=== PATIENT | male | born 1955 | race Caucasian/White ===

== ENCOUNTER → 2018-02-09 09:25 | Outpatient (CLI) | payer OTHER, MEDICAID, SELFPAY | PROVIDERS: Family Provider Family Medicine; PCP Family Medicine; Visit Provider Internal Medicine | DX: B35.1 Tinea unguium (principal) | CPT/HCPCS: 87102 ==

== ENCOUNTER → 2018-04-20 15:07 | Outpatient (CLI) | payer OTHER, MEDICAID, SELFPAY ==
[2018-04-20 16:41] LABS: Prostate Specific Antigen Scrn 0.415 ng/mL (0.1-4.0)
== END ==
PROVIDERS: Family Provider Family Medicine; PCP Family Medicine; Visit Provider Nurse Practitioner Family
DX: R35.0 Frequency of micturition (principal)
CPT/HCPCS: 36415; G0103

== ENCOUNTER → 2018-05-18 07:03 | Outpatient (CLI) | payer OTHER, MEDICAID, SELFPAY ==
[2018-05-18 07:09] LABS: WBC Urine None Seen (0-5/HPF)
[2018-05-18 08:52] LABS: Add Manual Diff / Slide Review NO; Eosinophils Percent Auto 6.6 % (2-4); Hematocrit 44.4 % (41-53); Hemoglobin 14.6 g/dL (13.5-17.5); Lymphocytes Percent Auto 23.7 % (25-40); Mean Corpuscular HGB Conc 32.9 % (30-36); Mean Corpuscular Hemoglobin 29.8 PG (26-34); Mean Corpuscular Volume 90.6 fL (80-100); Monocytes Percent Auto 8.2 % (3-14); Neutrophils Absolute Auto 3700 /uL (3000-5900); Neutrophils Percent Auto 60.5 % (50-75); Platelet Count 246 X10^3/uL (150-400); Red Cell Distribution Width 13.5 % (11.6-14.8)
[2018-05-18 09:10] LABS: Alanine Aminotransferase 22 IU/L (21-72); Albumin 4.2 g/dL (3.5-5.0); Albumin Globulin Ratio 1.6 (1.0-2.8); Alkaline Phosphatase 55 U/L (38-126); Aspartate Aminotransferase 19 IU/L (17-59); BUN Creatinine Ratio 8.3 (6-22); Bilirubin Total 0.4 mg/dL (0.2-1.3); Blood Urea Nitrogen 10 mg/dL (9-20); Calcium 9.2 mg/dL (8.4-10.2); Carbon Dioxide 28 mmol/L (22-32); Chloride 105 mmol/L (98-107); Cholesterol 170 mg/dL (140-199); Estimated Glomerular Filt Rate > 60.0 mL/min (>60); Globulin 2.6 g/dL (1.7-4.1); Glucose 102 mg/dL (80-110); HDL Cholesterol 35 mg/dL (40-60); LDL Cholesterol Calculated 95 mg/dL (<100); Potassium 3.7 mmol/L (3.4-5.1); Sodium 146 mmol/L (137-145); Total Protein 6.8 g/dL (6.3-8.2); Triglycerides 202 mg/dL (35-150)
[2018-05-18 09:48] LABS: Appearance Urine UA CLEAR; Bilirubin Urine UA NEGATIVE (NEGATIVE); Color Urine UA YELLOW; Glucose Urine UA NEGATIVE (Normal); Ketones Urine UA NEGATIVE (NEGATIVE); Leukocyte Esterase Urine UA NEGATIVE (NEGATIVE); Nitrite Urine UA Negative (Negative); Occult Blood Urine UA NEGATIVE (Negative); Protein Urine UA NEGATIVE (Negative); Urobilinogen Urine UA 0.2 E.U./dL (0.2)
[2018-05-18 10:10] LABS: RBC Urine 0-1/HPF (0-5/HPF)
[2018-05-18 10:11] LABS: Bacteria Urine Occasional (0-1); Culture Indicated Urine Cult Not Indicated
[2018-05-18 20:15] LABS: HEMOLYSIS < 15 (0-50); Prostate Specific Antigen 0.367 ng/mL (0.10-4.00)
== END ==
PROVIDERS: Family Provider Family Medicine; PCP Family Medicine; Visit Provider Family Medicine
DX: N40.1 Benign prostatic hyperplasia with lower urinary tract symptoms (principal); Z13.220 Encounter for screening for lipoid disorders; R35.0 Frequency of micturition
CPT/HCPCS: 36415; 80053; 80061; 81001; 84153; 85025

== ENCOUNTER → 2018-12-29 10:34 | Outpatient (CLI) | payer OTHER, MEDICAID, SELFPAY ==
[2018-12-29 17:05] LABS: Erythrocyte Sedimentation Rate 4 MM/HR (0-15)
[2018-12-31 18:28] LABS: ANA Screen, IFA Negative (Negative)
== END ==
PROVIDERS: PCP Family Medicine; Visit Provider Hospitalist
DX: M25.512 Pain in left shoulder (principal); M25.50 Pain in unspecified joint
CPT/HCPCS: 36415; 85651; 86038

== ENCOUNTER → 2019-02-28 15:15 | Outpatient (CLI) | payer OTHER, MEDICAID, SELFPAY ==
[2019-02-28 16:23] LABS: Alanine Aminotransferase 18 IU/L (21-72); Albumin 4.1 g/dL (3.5-5.0); Albumin Globulin Ratio 1.7 (1.0-2.8); Alkaline Phosphatase 62 U/L (38-126); Aspartate Aminotransferase 18 IU/L (17-59); BUN Creatinine Ratio 11.8 (6-22); Bilirubin Total 0.3 mg/dL (0.2-1.3); Blood Urea Nitrogen 13 mg/dL (9-20); Calcium 9.4 mg/dL (8.4-10.2); Carbon Dioxide 25 mmol/L (22-32); Chloride 104 mmol/L (98-107); Estimated Glomerular Filt Rate > 60.0 mL/min (>60); Globulin 2.4 g/dL (1.7-4.1); Glucose 74 mg/dL (80-110); HEMOLYSIS < 15 (0-50); Potassium 4.1 mmol/L (3.4-5.1); Sodium 138 mmol/L (137-145); Total Protein 6.5 g/dL (6.3-8.2)
== END ==
PROVIDERS: PCP Family Medicine; Visit Provider Family Medicine
DX: Z79.1 Long term (current) use of non-steroidal anti-inflammatories (NSAID) (principal)
CPT/HCPCS: 36415; 80053

== ENCOUNTER → 2019-05-09 14:10 | Outpatient (CLI) | payer OTHER, MEDICAID, SELFPAY ==
--- NOTE | 2019-05-09 14:12 | DI.MRI.S_ITS ---
PROCEDURE: MR SHOULDER RT WO CON INDICATIONS: Right Shoulder Pain TECHNIQUE: Noncontrast oblique coronal T2 fast spin echo with fat saturation, oblique sagittal T1 spin echo and T2 fast spin echo with fat saturation, axial T1 spin echo and T2 fast spin echo with fat saturation through the shoulder. COMPARISON: [facility], , CHEST 2 VIEW, 09/25/2017, 14:42. FINDINGS: Image quality: Excellent. Rotator cuff: Low signal focus measuring 7 mm seen in the region of the supraspinatus tendon suggestive of calcific tendinitis although this could be confirmed with radiographic evaluation. Supraspinatus tendinopathy with partial thickness articular and bursal sided tear. No full thickness defect identified. There is also infraspinatus tendinopathy with articular surface fraying. Teres minor tendinopathy noted. There is also subscapularis thickening and intrasubstance signal change in keeping with tendinopathy. No atrophy of the rotator cuff musculature although mild diffuse fatty infiltration is seen. Bones and bursae: No bone marrow contusions or fractures. Severe acromioclavicular joint degeneration. The acromion demonstrates conventional anatomy, without an os acromiale. Moderate subacromial-subdeltoid bursitis. Capsule and soft tissues: Irregularity of the anteroinferior labrum with intrasubstance signal change and hypertrophy in keeping with chronic labral tear. There is adjacent glenoid osseous degeneration and cystic change. There is also fraying and ill-defined degeneration of the superior labrum The long head of the biceps tendon demonstrates normal location and morphology. The rotator interval appears normal, without fibrosis. The coracohumeral ligament is thickened. IMPRESSION: Supraspinatus tendinopathy with partial-thickness articular and bursal sided tear. No definite full-thickness defect seen. Infraspinatus tendinopathy with articular surface fraying. Subscapularis and teres minor tendinopathy. Moderate subacromial-subdeltoid bursitis. Chronic appearing anteroinferior labral tear with subsequent hypertrophic scarring/fibrosis. Adjacent segmental glenohumeral joint degeneration. Suspect supraspinatus calcific tendinitis, which could be confirmed with dedicated shoulder radiographs. Dictated by: Bubba Tate M.D. on 05/09/2019 at 15:43 Approved by: Bubba Tate M.D. on 05/09/2019 at 15:51
== END ==
PROVIDERS: PCP Family Medicine; Visit Provider Family Medicine
DX: M25.511 Pain in right shoulder (principal); M75.51 Bursitis of right shoulder; M19.011 Primary osteoarthritis, right shoulder; S43.491A Other sprain of right shoulder joint, initial encounter
CPT/HCPCS: 73221

== ENCOUNTER → 2020-02-20 07:44 | Outpatient (CLI) | payer OTHER, MEDICAID, SELFPAY ==
[2020-02-20 08:11] LABS: Add Manual Diff / Slide Review NO; Basophils Absolute Auto 100 /uL (0-100); Basophils Percent Auto 1.2 % (0-2); Eosinophils Absolute Auto 300 /uL (0-450); Eosinophils Percent Auto 4.5 % (2-4); Hematocrit 43.7 % (41-53); Lymphocytes Absolute Auto 1500 /uL (1100-4500); Mean Corpuscular HGB Conc 34.2 % (30-36); Mean Corpuscular Hemoglobin 30.4 PG (26-34); Mean Corpuscular Volume 88.9 fL (80-100); Monocytes Absolute Auto 500 /uL (0-900); Monocytes Percent Auto 6.7 % (3-14); Neutrophils Absolute Auto 4900 /uL (1500-7000); Neutrophils Percent Auto 66.6 % (50-75); Platelet Count 233 X10^3/uL (150-400); Red Blood Cell Count 4.92 X10^6/uL (4.5-5.9); Red Cell Distribution Width 13.2 % (11.6-14.8); White Blood Cell Count 7.3 X10^3/uL (4.5-11.0)
[2020-02-20 08:22] LABS: Prothrombin Time 11.1 SECONDS (10.1-12.7)
[2020-02-20 08:47] LABS: Alanine Aminotransferase 18 IU/L (<50); Albumin 3.8 g/dL (3.5-5.0); Albumin Globulin Ratio 1.7 (1.0-2.8); Alkaline Phosphatase 66 U/L (38-126); Aspartate Aminotransferase 21 IU/L (17-59); BUN Creatinine Ratio 9.3 (6-22); Bilirubin Total 0.3 mg/dL (0.2-1.3); Blood Urea Nitrogen 10 mg/dL (9-20); Calcium 9.3 mg/dL (8.4-10.2); Carbon Dioxide 25 mmol/L (22-32); Chloride 109 mmol/L (98-107); Cholesterol 163 mg/dL (140-199); Estimated Glomerular Filt Rate > 60.0 mL/min (>60); Globulin 2.2 g/dL (1.7-4.1); Glucose 103 mg/dL (80-110); HDL Cholesterol 35 mg/dL (40-60); HEMOLYSIS < 15 (0-50); LDL Cholesterol Calculated 87 mg/dL (<100); Potassium 4.1 mmol/L (3.4-5.1); Sodium 139 mmol/L (137-145); Triglycerides 203 mg/dL (35-150)
[2020-02-20 09:03] LABS: Free T4, Direct Thyroxine 0.79 ng/dL (0.78-2.19)
[2020-02-20 09:58] LABS: Lithium 0.5 mmol/L (0.6-1.2)
[2020-02-20 10:30] LABS: Thyroid Stimulating Hormone 3.17 uIU/mL (0.47-4.68)
== END ==
PROVIDERS: Nurse Practitioner Psychiatric/Mental Health; PCP Family Medicine; Referring Provider Family Medicine; Visit Provider Family Medicine
DX: Z51.81 Encounter for therapeutic drug level monitoring (principal); R23.8 Other skin changes; F31.11 Bipolar disorder, current episode manic without psychotic features, mild; Z79.899 Other long term (current) drug therapy; E66.9 Obesity, unspecified; G40.909 Epilepsy, unspecified, not intractable, without status epilepticus; F33.9 Major depressive disorder, recurrent, unspecified
CPT/HCPCS: 36415; 80053; 80061; 80178; 84439; 84443; 84481; 85025; 85610

== ENCOUNTER → 2020-04-19 15:38 | Outpatient (CLI) | payer OTHER, MEDICAID, SELFPAY | PROVIDERS: PCP Family Medicine; Referring Provider Registered Nurse Diabetes Educator; Visit Provider Registered Nurse Diabetes Educator | DX: M79.89 Other specified soft tissue disorders (principal); Z53.8 Procedure and treatment not carried out for other reasons ==

== ENCOUNTER → 2020-04-20 12:13 | Outpatient (CLI) | payer OTHER, MEDICAID, SELFPAY ==
--- NOTE | 2020-04-20 12:14 | DI.US.S_ITS ---
PROCEDURE: US PERIPH VENOUS LOW EXTREM LT INDICATIONS: LEFT LEG SWELLING TECHNIQUE: Real-time imaging, as well as color and pulse Doppler interrogation, were performed of the lower extremity deep veins from the inguinal ligament to the popliteal fossa. COMPARISON: None. FINDINGS: The common femoral, femoral and popliteal veins are normally compressible, and free of intraluminal thrombus. Color and pulse Doppler demonstrate normal phasic intraluminal flow. There is normal augmentation response to distal compression maneuver. IMPRESSION: Negative for deep venous thrombosis. Dictated by: Mando English M.D. on 04/20/2020 at 12:15 Approved by: Mando English M.D. on 04/20/2020 at 12:15
== END ==
PROVIDERS: PCP Family Medicine; Referring Provider Family Medicine; Visit Provider Registered Nurse Diabetes Educator
DX: M79.89 Other specified soft tissue disorders (principal)
CPT/HCPCS: 93971

== ENCOUNTER → 2020-04-26 11:43 | Outpatient (CLI) | payer OTHER, MEDICAID, SELFPAY ==
--- NOTE | 2020-04-26 11:46 | DI.RAD.S_ITS ---
PROCEDURE: XR TIBIA FIBULA RT 2V INDICATIONS: LLE swelling TECHNIQUE: 2 views of the tibia and fibula were acquired. COMPARISON: [facility], CR, XR KNEE LT 3V, 04/26/2020, 11:41. FINDINGS: Bones: No fracture. Small loose bodies and chondrocalcinosis projecting in the left knee Soft tissues: No suspicious soft tissue calcifications or masses. IMPRESSION: No fracture. Left knee joint degeneration and chondrocalcinosis Dictated by: Bubba Tate M.D. on 04/26/2020 at 15:08 Approved by: Bubba Tate M.D. on 04/26/2020 at 15:09
--- NOTE | 2020-04-26 11:46 | DI.RAD.S_ITS ---
PROCEDURE: XR KNEE LT 3V INDICATIONS: LLE swelling TECHNIQUE: 3 views of the knee were acquired. COMPARISON: [facility], , KNEE 3V RIGHT, 08/05/2013, 14:28. FINDINGS: Bones: No fracture. Chondrocalcinosis seen in the medial and lateral compartments. Mild narrowing of the medial joint space. Soft tissues: Possible small joint effusion. No suspicious soft tissue calcifications. IMPRESSION: Mild knee joint degeneration Chondrocalcinosis If the patient's pain or other symptoms persist, consider further evaluation with MRI Dictated by: Bubba Tate M.D. on 04/26/2020 at 15:05 Approved by: Bubba Tate M.D. on 04/26/2020 at 15:08
[2020-04-26 12:08] LABS: D Dimer < 200 ng/mL (<230)
== END ==
PROVIDERS: PCP Family Medicine; Referring Provider Registered Nurse Diabetes Educator; Visit Provider Registered Nurse Diabetes Educator
DX: M79.89 Other specified soft tissue disorders (principal); M17.0 Bilateral primary osteoarthritis of knee; M11.262 Other chondrocalcinosis, left knee; M11.261 Other chondrocalcinosis, right knee
CPT/HCPCS: 36415; 73562; 73590; 85379

== ENCOUNTER → 2020-11-29 08:22 | Outpatient (CLI) | payer OTHER, MEDICAID, SELFPAY ==
[2020-11-29] MEDS: COVID-19 VACC #1, MRNA(MOD) 100 MCG/0.5 ML VIAL IM (08:31)
== END ==
PROVIDERS: PCP Family Medicine; Visit Provider Internal Medicine
DX: Z23 Encounter for immunization (principal)
CPT/HCPCS: 0011A; 91301

== ENCOUNTER → 2020-12-27 08:23 | Outpatient (CLI) | payer OTHER, MEDICAID, SELFPAY ==
[2020-12-27] MEDS: COVID-19 VACC #2, MRNA(MOD) 100 MCG/0.5 ML VIAL IM (08:37)
== END ==
PROVIDERS: PCP Family Medicine; Visit Provider Internal Medicine
DX: Z23 Encounter for immunization (principal)
CPT/HCPCS: 0012A; 91301

== ENCOUNTER 2021-01-29 11:46 | Emergency (ER) | payer OTHER, SELFPAY ==
[2021-01-29 11:51] VITALS: BP 120/86; PULSE 89; RESP 16; TEMP 36.4; O2SAT 95; BMI 31.8
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
--- NOTE | 2021-01-29 12:07 | DI.CT.S_ITS ---
PROCEDURE: CT CERVICAL SPINE WO CON INDICATIONS: Pain/injury TECHNIQUE: Noncontrast 3 mm thick sections acquired from the skull base to the T4 level. Sagittal and coronal reformats were then constructed. For radiation dose reduction, the following was used: automated exposure control, adjustment of mA and/or kV according to patient size. COMPARISON: [facility], CR, CERVICAL SPINE 2 OR 3 VIEWS, 01/23/2017, 13:16. MR, C-SPINE WITHOUT CONTRAST, 01/25/2010, 12:45. [facility], CT, C-SPINE WITHOUT CONTRAST, 01/28/2016, 9:12. FINDINGS: Image quality: Excellent. Bones: Old C2 fracture involving the body of the odontoid process with stable alignment. No acute fractures or dislocations. Grade 1 anterolisthesis of C4 on C5. Mild degenerative disc disease at C3-C4 and C4-C5. Bilateral facet arthropathy, most pronounced at C3-C4 and C4-C5 on the left. There are postsurgical changes with anterior fusion at C5-C7. Visualized superior ribs are intact. Soft tissues: Prevertebral soft tissues are normal in thickness. No paravertebral hematomas. No apical pneumothoraces. Severe emphysema. IMPRESSION: 1. Old odontoid fracture with stable alignment. No acute fracture or dislocation. 2. Degenerative and postsurgical changes in cervical spine as described. Dictated by: Godfrey Sears M.D. on 01/29/2021 at 12:09 Approved by: Godfrey Sears M.D. on 01/29/2021 at 12:17
--- NOTE | 2021-01-29 12:37 | PC.NURSE ---
c spine cleared by Dr William
[2021-01-29] MEDS: OXYCODONE/ACETAMINOPHEN 5/325 TABLET 1 TAB PO (13:12)
[2021-01-29] MEDS: BACITRACIN OINT 0.9 GM PCKT 1 APPLIC TOP (13:12)
[2021-01-29 13:53] VITALS: BP 151/88; PULSE 82; RESP 16; O2SAT 99
--- NOTE | 2021-01-29 13:54 | PC.NURSE ---
right knee abrasion, bleeding controlled prior to arrival. cleaned with sterile water, bacitracin applied, covered with telfa and gauze roll.
== END 2021-01-29 13:56 | disposition home or self-care (01) ==
PROVIDERS: Emergency Provider Emergency Medicine; PCP Family Medicine
DX: S16.1XXA Strain of muscle, fascia and tendon at neck level, initial encounter (principal); S80.211A Abrasion, right knee, initial encounter; S80.01XA Contusion of right knee, initial encounter; R07.9 Chest pain, unspecified; V89.2XXA Person injured in unspecified motor-vehicle accident, traffic, initial encounter
CPT/HCPCS: 72125; 73562; 93005; 93010; 99284

== ENCOUNTER → 2021-03-18 08:21 | Outpatient (CLI) | payer OTHER, MEDICAID, SELFPAY ==
[2021-03-18 08:48] LABS: Add Manual Diff / Slide Review NO; Basophils Absolute Auto 100 /uL (0-100); Basophils Percent Auto 1.4 % (0-2); Eosinophils Absolute Auto 300 /uL (0-450); Hematocrit 45.5 % (41-53); Hemoglobin 15.4 g/dL (13.5-17.5); Lymphocytes Absolute Auto 1700 /uL (1100-4500); Lymphocytes Percent Auto 20.1 % (25-40); Mean Corpuscular HGB Conc 33.9 % (30-36); Mean Corpuscular Hemoglobin 30.2 PG (26-34); Mean Corpuscular Volume 89.1 fL (80-100); Monocytes Absolute Auto 600 /uL (0-900); Monocytes Percent Auto 6.7 % (3-14); Neutrophils Absolute Auto 5700 /uL (1500-7000); Neutrophils Percent Auto 67.8 % (50-75); Platelet Count 271 X10^3/uL (150-400); Red Cell Distribution Width 12.9 % (11.6-14.8); White Blood Cell Count 8.4 X10^3/uL (4.5-11.0)
[2021-03-18 09:02] LABS: Lithium 0.6 mmol/L (0.6-1.2)
[2021-03-18 09:10] LABS: Alanine Aminotransferase 16 IU/L (<50); Albumin 3.9 g/dL (3.5-5.0); Albumin Globulin Ratio 1.6 (1.0-2.8); Alkaline Phosphatase 64 U/L (38-126); Aspartate Aminotransferase 20 IU/L (17-59); Bilirubin Total 0.4 mg/dL (0.2-1.3); Blood Urea Nitrogen 11 mg/dL (9-20); Calcium 9.9 mg/dL (8.4-10.2); Carbon Dioxide 26 mmol/L (22-32); Chloride 108 mmol/L (98-107); Cholesterol 174 mg/dL (140-199); Estimated Glomerular Filt Rate 59.8 mL/min (>60); Globulin 2.5 g/dL (1.7-4.1); Glucose 110 mg/dL (80-110); HDL Cholesterol 39 mg/dL (40-60); HEMOLYSIS < 15 (0-50); LDL Cholesterol Calculated 92 mg/dL (<100); Potassium 4.5 mmol/L (3.4-5.1); Sodium 139 mmol/L (137-145); Total Protein 6.4 g/dL (6.3-8.2); Triglycerides 217 mg/dL (35-150)
[2021-03-18 09:36] LABS: TSH w/ Reflex to FT4 3.07 uIU/mL (0.47-4.68)
== END ==
PROVIDERS: PCP Family Medicine; Referring Provider Family Medicine; Visit Provider Family Medicine
DX: E66.9 Obesity, unspecified (principal); Z79.899 Other long term (current) drug therapy
CPT/HCPCS: 36415; 80053; 80061; 80178; 84443; 85025

== ENCOUNTER 2021-04-29 14:30 | Outpatient (RCR) | payer OTHER, MEDICAID, SELFPAY ==
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
--- NOTE | 2021-05-07 14:24 | PT.OPDS ---
Current Diagnoses Other chronic pain (04/29/21) Pain in unspecified shoulder (04/29/21) Cervicalgia (04/29/21) Dorsalgia, unspecified (04/29/21) Visit Care Team Role Provider Type Bobbi Wyatt DO Attending Provider Physician Primary Care Provider Referring Provider Specialty: Family Practice Address: [address] [place] [address], [address], [facility] Email: [email or web address] Visit Number Visit Number 10/19 Discharge Summary PT-OP-T Assessment and Plan Start: 04/23/21 16:16 Freq: Status: Active Protocol: Document 05/07/21 14:23 HH (Rec: 05/07/21 14:24 [email or web address]) Physical Therapy Plan Discharge Physical Therapy Discharge Comments Pt called and cnxd his remaining appts. dr wyatt said to stop PT, pt getting cluster headaches. DC from PT today
== END 2021-05-07 14:26 | disposition home or self-care (01) ==
LOC: PHYS 14:30
PROVIDERS: PCP Family Medicine; Referring Provider Family Medicine; Visit Provider Family Medicine
DX: M25.519 Pain in unspecified shoulder (principal); M54.9 Dorsalgia, unspecified; G89.29 Other chronic pain; M54.2 Cervicalgia
CPT/HCPCS: 97110; 97140; 97162

== ENCOUNTER 2022-06-27 11:42 | Emergency (ER) | payer OTHER, MEDICAID, SELFPAY ==
--- NOTE | 2022-06-27 12:58 | DI.RAD.S_ITS ---
PROCEDURE: XR FOOT RT MIN 3V INDICATIONS: pain / swelling- in WR TECHNIQUE: 3 views of the foot were acquired. COMPARISON: None. FINDINGS: Bones: No fractures or dislocations. No suspicious bony lesions. Moderate 1st MTP joint degenerative changes and periarticular lucencies. Soft tissues: No tibiotalar joint effusion. Achilles tendon appears normal. IMPRESSION: 1. No acute fracture visualized. 2. Moderate 1st MTP joint degenerative changes present. Periarticular lucencies also demonstrated, indeterminate for subchondral cystic change or erosions. 3. If symptoms persist, follow-up radiographs and/or CT may be helpful for further evaluation. Dictated by: Julio C Bagley M.D. on 06/27/2022 at 13:33 Approved by: Julio C Bagley M.D. on 06/27/2022 at 13:38
[2022-06-27 13:06] VITALS: BP 126/78; PULSE 77; RESP 18; TEMP 36.7; O2SAT 98
[2022-06-27 17:19] VITALS: BP 159/85; PULSE 80; RESP 16; O2SAT 99
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
[2022-06-27] MEDS: KETOROLAC 30 MG/ML VIAL IM (18:02)
[2022-06-27] MEDS: predniSONE 20 MG TABLET 40 MG PO (18:02)
[2022-06-27] MEDS: PANTOPRAZOLE DR 20 MG TABLET PO (18:02)
[2022-06-27] MEDS: OXYCODONE IR 5 MG TABLET PO (18:03)
[2022-06-27 18:18] VITALS: BP 137/79; PULSE 76; RESP 18; O2SAT 98
== END 2022-06-27 18:22 | disposition home or self-care (01) ==
PROVIDERS: Emergency Provider Nurse Practitioner Critical Care Medicine
DX: M10.9 Gout, unspecified (principal)
CPT/HCPCS: 73630; 96372; 99283; 99284; J1885

== ENCOUNTER → 2022-07-08 15:57 | Outpatient (CLI) | payer OTHER, MEDICAID, SELFPAY ==
--- NOTE | 2022-07-08 15:59 | DI.RAD.S_ITS ---
PROCEDURE: XR ELBOW RT MIN 3V INDICATIONS: Re-evaluate surgical hardware stability TECHNIQUE: 3 views of the elbow were acquired. COMPARISON: [facility], , ELBOW 3+ VIEWS RIGHT, 01/22/2015, 9:50. FINDINGS: Bones: No acute fracture dislocation. Old traumatic change again seen involving the radius and ulna with previous placement of plate and screw fixation which appears to be intact and in expected unchanged positions compared to prior examination. Soft tissues: No elbow joint effusion. No suspicious soft tissue calcifications. IMPRESSION: No acute bony abnormality seen and there has been prior trauma to the radius and ulna with stable positioning of fixation plate and screws when compared to the prior examination. Dictated by: Roel STEVEN Interpreted: Rosi Ly MD on 07/08/2022 at 16:21 Transcribed by: EZEQUIEL on 07/08/2022 at 16:23 Approved by: Rosi Ly M.D. on 07/08/2022 at 16:58
== END ==
PROVIDERS: Referring Provider Student in an Organized Health Care Education/Training Program; Visit Provider Student in an Organized Health Care Education/Training Program
DX: M25.521 Pain in right elbow (principal)
CPT/HCPCS: 73080

== ENCOUNTER 2022-08-13 15:46 | Emergency (ER) | payer OTHER, MEDICAID, SELFPAY ==
[2022-08-13] VITALS (19 sets, daily range): BP systolic 122–159; BP diastolic 75–93; PULSE 81–110; RESP 10–32; TEMP 36.8; O2SAT 94–100; BMI 27.8
[2022-08-13 16:35] LABS: Add Manual Diff / Slide Review NO; Basophils Absolute Auto 100 /uL (0-100); Basophils Percent Auto 1.3 % (0-2); Eosinophils Absolute Auto 200 /uL (0-450); Eosinophils Percent Auto 2.2 % (2-4); Hematocrit 44.3 % (41-53); Lymphocytes Absolute Auto 1300 /uL (1100-4500); Lymphocytes Percent Auto 14.5 % (25-40); Mean Corpuscular HGB Conc 33.9 % (30-36); Mean Corpuscular Hemoglobin 29.8 PG (26-34); Mean Corpuscular Volume 87.9 fL (80-100); Monocytes Absolute Auto 600 /uL (0-900); Monocytes Percent Auto 6.3 % (3-14); Neutrophils Absolute Auto 6600 /uL (1500-7000); Neutrophils Percent Auto 75.7 % (50-75); Platelet Count 256 X10^3/uL (150-400); Red Blood Cell Count 5.04 X10^6/uL (4.5-5.9); Red Cell Distribution Width 13.2 % (11.6-14.8); White Blood Cell Count 8.7 X10^3/uL (4.5-11.0)
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
[2022-08-13 16:57] LABS: Influenza A - CEPHEID Flu A NEGATIVE (NEGATIVE); Influenza B - CEPHEID Flu B NEGATIVE (NEGATIVE); Respiratory Syncytial Virus Negative (Negative)
[2022-08-13 17:08] LABS: COVID-19 CEPHEID 4-PLEX PCR Negative (Negative)
[2022-08-13 17:11] LABS: Lithium 0.3 mmol/L (0.6-1.2)
[2022-08-13 17:12] LABS: Alanine Aminotransferase 21 IU/L (<50); Albumin 4.6 g/dL (3.5-5.0); Albumin Globulin Ratio 1.5 (1.0-2.8); Alkaline Phosphatase 72 U/L (38-126); Aspartate Aminotransferase 25 IU/L (17-59); BUN Creatinine Ratio 9.8 (6-22); Bilirubin Total 0.7 mg/dL (0.2-1.3); Blood Urea Nitrogen 18 mg/dL (9-20); Carbon Dioxide 26 mmol/L (22-32); Chloride 101 mmol/L (98-107); Estimated Glomerular Filt Rate 40 mL/min (>60); Globulin 3.1 g/dL (1.7-4.1); Glucose 94 mg/dL (80-110); HEMOLYSIS < 15 (0-50); Lipase 67 U/L (23-300); Potassium 3.5 mmol/L (3.4-5.1); Sodium 138 mmol/L (137-145); Total Protein 7.7 g/dL (6.3-8.2)
[2022-08-13] MEDS: KETOROLAC 30 MG/ML VIAL 15 MG IV (17:27)
[2022-08-13 17:28] LABS: Calcium 13.3 mg/dL (8.4-10.2)
--- NOTE | 2022-08-13 18:34 | DI.US.S_ITS ---
PROCEDURE: US ABDOMEN LIMITED INDICATIONS: RUQ PAIN TECHNIQUE: Real-time scanning was performed of the abdominal and retroperitoneal organs, with image documentation. COMPARISON: None. FINDINGS: Liver: The liver is not well seen due to overlying bowel gas. Echotexture appears hyperechoic. No mass or intrahepatic biliary ductal dilatation is seen in the visualized portion of the liver. Gallbladder: The gallbladder appears distended but there is no wall thickening. No stones are identified. However visualization is limited. Pancreas: Not well seen due to overlying bowel gas. IMPRESSION: Limited ultrasound. No acute abnormality is seen. Dictated by: Dennis Thompson M.D. on 08/13/2022 at 20:27 Approved by: Dennis Thompson M.D. on 08/13/2022 at 20:30
--- NOTE | 2022-08-13 18:34 | DI.RAD.S_ITS ---
PROCEDURE: XR CHEST 1V INDICATIONS: right upper quadrant TECHNIQUE: One view of the chest was acquired. COMPARISON: [facility], , CHEST 2 VIEW, 09/25/2017, 14:42. FINDINGS: Surgical changes and devices: None. Lungs and pleura: Lungs are clear. No pleural effusions or pneumothorax. Mediastinum: Mediastinal contours appear normal. Heart size is normal. Bones and chest wall: No suspicious bony lesions. Overlying soft tissues appear unremarkable. IMPRESSION: No acute abnormality of the chest. Dictated by: Dennis Thompson M.D. on 08/13/2022 at 19:20 Approved by: Dennis Thompson M.D. on 08/13/2022 at 19:20
[2022-08-13 18:53] LABS: Creatine Kinase 36 U/L (55-170)
[2022-08-13] MEDS: SODIUM CHLORIDE 0.9% 1,000 ML 1000 ML IV (19:00)
[2022-08-13 19:04] LABS: Troponin I < 0.012 ng/mL (0.01-0.034)
[2022-08-13] MEDS: MAG HYDROX/ALUMINUM/SIMETH SUS 20 ML, LIDOCAINE VISCOUS 2% 15 ML PO (21:20)
== END 2022-08-13 21:40 | disposition home or self-care (01) ==
PROVIDERS: Emergency Medicine; Emergency Provider Emergency Medicine; PCP Family Medicine
DX: R10.13 Epigastric pain (principal); R11.2 Nausea with vomiting, unspecified; Z79.899 Other long term (current) drug therapy; Z20.822 Contact with and (suspected) exposure to COVID-19
CPT/HCPCS: 0241U; 36415; 71045; 76705; 80053; 80178; 82550; 83690; 84484; 85025; 93005; 96361; 96374; 99284; J1885

== ENCOUNTER → 2022-12-04 10:22 | Outpatient (CLI) | payer OTHER, MEDICAID, SELFPAY ==
--- NOTE | 2022-12-04 10:24 | DI.RAD.S_ITS ---
PROCEDURE: XR HAND RT 2V INDICATIONS: thumb pain TECHNIQUE: 2 views of the hand(s) acquired. COMPARISON: None. FINDINGS: Bones: No fractures or dislocations. Carpal bones are normally aligned. No suspicious bony lesions. Moderate degenerative changes are present at the 1st CMC joint. Fixation plate of the distal ulnar diaphysis appears intact where visualized. Soft tissues: No suspicious soft tissue calcifications. 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 Dictated by: Coni Dowling M.D. on 12/04/2022 at 11:36 Approved by: Coni Dowling M.D. on 12/04/2022 at 11:36
[2022-12-04 11:20] LABS: Add Manual Diff / Slide Review NO; Basophils Absolute Auto 100 /uL (0-100); Basophils Percent Auto 1.1 % (0-2); Eosinophils Absolute Auto 400 /uL (0-450); Eosinophils Percent Auto 4.3 % (2-4); Hematocrit 40.8 % (41-53); Lymphocytes Absolute Auto 1400 /uL (1100-4500); Lymphocytes Percent Auto 15.6 % (25-40); Mean Corpuscular HGB Conc 34.4 % (30-36); Mean Corpuscular Hemoglobin 30.2 PG (26-34); Mean Corpuscular Volume 87.7 fL (80-100); Monocytes Absolute Auto 700 /uL (0-900); Monocytes Percent Auto 7.4 % (3-14); Neutrophils Absolute Auto 6500 /uL (1500-7000); Neutrophils Percent Auto 71.6 % (50-75); Platelet Count 357 X10^3/uL (150-400); Red Blood Cell Count 4.65 X10^6/uL (4.5-5.9); Red Cell Distribution Width 12.9 % (11.6-14.8); White Blood Cell Count 9.1 X10^3/uL (4.5-11.0)
[2022-12-04 12:03] LABS: Alanine Aminotransferase 19 IU/L (<50); Albumin 4.4 g/dL (3.5-5.0); Albumin Globulin Ratio 1.6 (1.0-2.8); Alkaline Phosphatase 69 U/L (38-126); Aspartate Aminotransferase 27 IU/L (17-59); BUN Creatinine Ratio 9.2 (6-22); Bilirubin Total 0.5 mg/dL (0.2-1.3); Blood Urea Nitrogen 14 mg/dL (9-20); Calcium 9.9 mg/dL (8.4-10.2); Carbon Dioxide 25 mmol/L (22-32); Chloride 104 mmol/L (98-107); Cholesterol 190 mg/dL (140-199); Estimated Glomerular Filt Rate 50 mL/min (>60); Globulin 2.7 g/dL (1.7-4.1); Glucose 104 mg/dL (80-110); HDL Cholesterol 33 mg/dL (40-60); HEMOLYSIS < 15 (0-50); LDL Cholesterol Calculated 122 mg/dL (<100); Potassium 3.6 mmol/L (3.4-5.1); Sodium 138 mmol/L (137-145); Total Protein 7.1 g/dL (6.3-8.2); Triglycerides 174 mg/dL (35-150)
[2022-12-04 12:04] LABS: BUN Creatinine Ratio 8.7 (6-22); Blood Urea Nitrogen 13 mg/dL (9-20); Carbon Dioxide 24 mmol/L (22-32); Chloride 104 mmol/L (98-107); Estimated Glomerular Filt Rate 51 mL/min (>60); Glucose 106 mg/dL (80-110); HEMOLYSIS < 15 (0-50); Potassium 3.6 mmol/L (3.4-5.1); Sodium 139 mmol/L (137-145); Uric Acid 8.4 mg/dL (3.5-8.5)
[2022-12-04 12:10] LABS: Lithium 0.7 mmol/L (0.6-1.2)
[2022-12-04 12:34] LABS: Thyroid Stimulating Hormone 2.24 uIU/mL (0.47-4.68)
[2022-12-05 09:34] LABS: x Labcorp Estim. Avg Glu (eAG) 97 mg/dL (.)
== END ==
PROVIDERS: Psychiatry & Neurology Psychiatry; PCP Family Medicine; Referring Provider Nurse Practitioner Family; Visit Provider Nurse Practitioner Family
DX: M18.11 Unilateral primary osteoarthritis of first carpometacarpal joint, right hand (principal); M79.644 Pain in right finger(s); F31.75 Bipolar disorder, in partial remission, most recent episode depressed; E83.52 Hypercalcemia; M10.9 Gout, unspecified; G89.29 Other chronic pain; Z79.899 Other long term (current) drug therapy
CPT/HCPCS: 36415; 73120; 80048; 80053; 80061; 80175; 80178; 83036; 84443; 84550; 85025

== ENCOUNTER 2022-12-22 06:48 | Emergency (ER) | payer OTHER, MEDICAID, SELFPAY ==
[2022-12-22 06:55] VITALS: BP 130/95; PULSE 124; RESP 18; TEMP 36; O2SAT 98; BMI 29.1
--- NOTE | 2022-12-22 07:06 | ED_ITS ---
HPI - Extremity Injury (Lower) General Chief Complaint: Extremity Injury, Lower Stated Complaint: gout in rt foot Time Seen by Provider: 12/22/22 06:56 Source: patient Mode of arrival: Ambulatory Limitations: no limitations History of Present Illness HPI Narrative: Patient is a 67-year-old male. Here for evaluation what he states is a gout flare. He states that approximately 24 hours ago he started to have pain in his right great toe. He has had gout in this area in the past. He states that it was diagnosed from an x-ray. He states the last time that he was here he received a shot of steroids then was sent home on steroids. He states he felt better almost immediately. The gout completely resolved and has not had an issue until yesterday morning. No specific trauma. No fevers. He was told that he should not take anti-inflammatories because of his kidney function. He does not take daily gout medications. Related Data Previous Rx's Medication Instructions Recorded cyanocobalamin (vitamin B-12) 1,000 mcg PO Q DAY #90 tabs 01/15/17 1,000 mcg tablet,extended release albuterol sulfate 2.5 mg/3 mL 3 ml INH SEE INSTRUCTIONS PRN ##1 09/27/17 (0.083 %) solution for nebulization albuterol sulfate 90 mcg/actuation 2 puff inhalation Q4HP PRN 03/15/21 aerosol inhaler (Ventolin HFA) shortness of breath or wheezing #1 inh sumatriptan succinate 6 mg/0.5 mL 6 mg (0.5 mL) SUBCUT ONCE #3 mL 06/04/21 subcutaneous pen injector levetiracetam 500 mg tablet 250 mg PO BID #30 tabs 07/02/21 verapamil 180 mg 24 hr 240 mg PO .COMPLEX hypertension 01/16/22 capsule,extended release #90 caps fluticasone propionate 220 1 puff inhalation BID emphysema vs 01/27/22 mcg/actuation HFA aerosol inhaler asthma management #12 grams (Flovent HFA) amitriptyline 100 mg tablet 100 mg PO HS #30 tabs 06/23/22 diclofenac sodium 1 % topical gel 2 g topical QID PRN toe pain #100 06/27/22 grams naproxen 250 mg tablet 250 mg PO BID PRN pain #14 tabs 11/18/22 pantoprazole 20 mg tablet,delayed 20 mg PO DAILY to prevent ulcer 06/27/22 release (Protonix) #30 tabs sucralfate 100 mg/mL oral 10 ml PO QACHS #414 mL 08/13/22 suspension (Carafate) baclofen 10 mg tablet See Rx Instructions PO TID #120 10/01/22 tabs prednisone 20 mg tablet 40 mg PO DAILY #6 tabs 11/05/22 oxycodone 5 mg tablet 5 mg PO BEDTIME PRN pain #30 tabs 12/04/22 oxycodone 5 mg tablet 5 mg PO BID PRN pain 30 days #60 12/15/22 tabs duloxetine 30 mg capsule,delayed 30 mg PO BID #60 caps 12/18/22 release gabapentin 600 mg tablet 600 mg PO TID #90 tabs 12/18/22 (Neurontin) lamotrigine 100 mg tablet 50 mg PO BID #30 tabs 12/18/22 lithium carbonate 300 mg tablet 300 mg PO BID #60 tabs 12/18/22 quetiapine 50 mg tablet 150 mg PO HS #90 tabs 12/19/22 prednisone 20 mg tablet 20 mg PO DIRECTED #30 tabs 12/22/22 Allergies Allergy/AdvReac Type Severity Reaction Status Date / Time mold Allergy Severe Cough Verified 11/26/22 12:27 morphine [MORPHINE] Allergy Mild PAIN IN Verified 11/26/22 12:27 LEGS Review of Systems Constitutional Constitutional: Reports system reviewed and no additional complaints, except as documented Musculoskeletal Musculoskeletal: Reports system reviewed and no additional complaints, except as documented Integumentary/Breasts Skin/Breast: Reports system reviewed and no additional complaints, except as documented Neurologic Neurologic: Reports system reviewed and no additional complaints, except as documented Patient History Medical History Anxiety Bipolar disorder Cervical somatic dysfunction Cervical spine disease Chronic back pain Chronic cluster headache (06/23/13) COPD (chronic obstructive pulmonary disease) Cranial somatic dysfunction Hearing loss (08/10/94) History of alcohol abuse Left ankle swelling Limb swelling [place] use Lumbar spine pain PTSD (post-traumatic stress disorder) Right arm fracture Spinal stenosis Substance abuse Thoracic region somatic dysfunction Unilateral occipital headache Vision abnormalities Whiplash injury to neck Surgical History Anesthesia History of facial surgery History of knee replacement (05/29/14) History of spinal fusion History of spinal fusion History of surgery on arm History of testicular surgery History of tonsillectomy Family History Mother Suicide Asthma Bipolar disorder Depression Sister Age: 71 Healthy adult Father Emphysema of lung Sister Crohn's disease Substance abuse Social History other: Pt lives with a friend who is a disabled [employer] [facility] vet who needs assistance, Smoking Status: Former smoker alcohol intake: never substance use type: marijuana Smoking Status: Former smoker tobacco type: cigarettes alcohol intake frequency: 0-2 drinks per day Substance Use Type: marijuana Exam Initial Vital Signs Initial Vital Signs: Vital Signs Temperature 96.8 F L 12/22/22 06:55 Pulse Rate 124 H 12/22/22 06:55 Respiratory Rate 18 12/22/22 06:55 Blood Pressure 130/95 H 12/22/22 06:55 Pulse Oximetry 98 12/22/22 06:55 Oxygen Delivery Method Room Air 12/22/22 06:55 Const General: cooperative and healthy appearing HENMA Head: normal to inspection and normocephalic Cardio Pulses: dorsalis pedis present on the right Skin Other: Mild redness on the dorsum of the right foot at the base of the 1st metatarsal and the MTP joint of the great toe. Neuro Sensory Exam: no sensory deficits noted Extrem Other: Patient does have tenderness to palpation of the MTP joint of the right great toe. His right ankle is unremarkable. Course Orders Ordered: Discontinued Medications Ketorolac Tromethamine (Ketorolac 30 Mg/Ml Vial) 30 mg IM NOW ONE Stop: 12/22/22 07:09 Vital Signs Vital signs: Vital Signs - 8 hr 12/22/22 06:55 Temperature 96.8 F L Pulse Rate 124 H Respiratory Rate 18 Blood Pressure 130/95 H Pulse Oximetry 98 Oxygen Delivery Method Room Air MDM - Extremity Injury (Lower) MDM Narrative Medical decision making narrative: Patient states he has had a gout flare in his right great toe in the past. He is once again having symptoms consistent with this that started approximately 24 hours ago. No fevers. No trauma. He does have redness and warmth and pain to the MTP joint of the right great toe. Review of the medical record shows that the last time he was here in the emergency department at looks like he received a shot of Toradol and then was sent home on naproxen however the patient states that it was steroids that he has been given. He states he was told that he should stay away from anti-inflammatories because of his kidney function. He denies any fevers. We will hold on any x-rays for now. He was given a shot of Toradol here in the ER. I will send home with a prescription for steroids. He was given return precautions. He expressed understanding and agreement. Discharge Plan Departure Patient Disposition: Home Clinical Impression: Gout Instructions: DI for Gout Activity Restrictions/Additional Instructions: Recommend that you continue to take all of your medications as directed. I prescription for steroids was sent to [facility] per your request. Recommend that you take them as directed. Contact your primary doctor for follow-up. Return to the emergency department for new or worsening symptoms. Prescriptions: New prednisone 20 mg tablet 20 mg PO DIRECTED Qty: 30 1RF Rx Instructions: 2T PO daily until flare has resolved then take 1T PO QD for 5 days then 1/2T po QD for 5 days then you can stop No Action amitriptyline 100 mg tablet 100 mg PO HS Qty: 30 5RF cyanocobalamin (vitamin B-12) 1,000 MCG tablet extended release 1,000 mcg PO Q DAY Qty: 90 1RF albuterol sulfate 2.5 MG/3 ML solution for nebulization 3 ml INH SEE INSTRUCTIONS PRNQty: 1 3RF sumatriptan succinate 6 mg/0.5 mL pen injector 6 mg SUBCUT ONCE Qty: 3 12RF Rx Instructions: may repeat dose once in 1 hour if not relieved. for cluster headaches. levetiracetam 500 mg tablet 250 mg PO BID Qty: 30 5RF verapamil 180 mg capsule,ext rel. pellets 24 hr 240 mg PO .COMPLEX Qty: 90 0RF Rx Instructions: 240 mg by mouth once per day baclofen 10 mg tablet See Rx Instructions PO TID Qty: 120 5RF Rx Instructions: Take 1 tab in morning, 1 tab in afternoon, 2 tabs at bedtime. oxycodone 5 mg tablet 5 mg PO BEDTIME PRN (Reason: pain) Qty: 30 0RF oxycodone 5 mg tablet 5 mg PO BID PRN (Reason: pain) 30 Days Qty: 60 0RF Rx Instructions: EXEMPT duloxetine 30 mg capsule,delayed release(DR/EC) 30 mg PO BID Qty: 60 2RF gabapentin [Neurontin] 600 mg tablet 600 mg PO TID Qty: 90 2RF lamotrigine 100 mg tablet 50 mg PO BID Qty: 30 2RF lithium carbonate 300 mg tablet 300 mg PO BID Qty: 60 2RF quetiapine 50 mg tablet 150 mg PO HS Qty: 90 2RF albuterol sulfate [Ventolin HFA] 90 mcg/actuation HFA aerosol inhaler 2 puff inhalation Q4HP PRN (Reason: shortness of breath or wheezing) Qty: 1 0RF prednisone 20 mg tablet 40 mg PO DAILY Qty: 6 0RF Rx Instructions: take with food fluticasone propionate [Flovent HFA] 220 mcg/actuation HFA aerosol inhaler 1 puff inhalation BID Qty: 12 3RF Rx Instructions: Use every day to keep wheezing to a minimum. OK for albuterol as needed if wheezing not controlled with this inhaler. naproxen 250 mg tablet 250 mg PO BID PRN (Reason: pain) Qty: 14 0RF diclofenac sodium 1 % gel 2 g topical QID PRN (Reason: toe pain) Qty: 100 0RF Rx Instructions: Toe pain pantoprazole [Protonix] 20 mg tablet,delayed release (DR/EC) 20 mg PO DAILY Qty: 30 0RF sucralfate [Carafate] 100 mg/mL suspension 10 ml PO QACHS Qty: 414 0RF Referrals: Reji Chowdhury DO [Primary Care Provider] - Stand Alone Forms: Patient Portal/API
[2022-12-22] MEDS: KETOROLAC 30 MG/ML VIAL IM (07:25)
[2022-12-22 07:28] VITALS: PULSE 68
[2022-12-22 07:34] VITALS: BP 136/78; PULSE 72; RESP 16; O2SAT 97
== END 2022-12-22 07:37 | disposition home or self-care (01) ==
PROVIDERS: Emergency Provider Emergency Medicine; PCP Family Medicine
DX: M10.9 Gout, unspecified (principal)
CPT/HCPCS: 96372; 99283; J1885

== ENCOUNTER → 2023-02-02 11:24 | Outpatient (CLI) | payer OTHER, MEDICAID, SELFPAY ==
[2023-02-02 13:16] LABS: BUN Creatinine Ratio 8.8 (6-22); Blood Urea Nitrogen 12 mg/dL (9-20); Calcium 9.2 mg/dL (8.4-10.2); Carbon Dioxide 24 mmol/L (22-32); Chloride 104 mmol/L (98-107); Estimated Glomerular Filt Rate 57 mL/min (>60); Glucose 106 mg/dL (80-110); HEMOLYSIS < 15 (0-50); Sodium 136 mmol/L (137-145)
== END ==
PROVIDERS: PCP Family Medicine; Referring Provider Surgery; Visit Provider Surgery
DX: N18.30 Chronic kidney disease, stage 3 unspecified (principal)
CPT/HCPCS: 36415; 80048

== ENCOUNTER → 2023-02-03 06:56 | Outpatient (CLI) | payer OTHER, MEDICAID, SELFPAY ==
--- NOTE | 2023-02-03 06:57 | DI.CT.S_ITS ---
PROCEDURE: CT ABDOMEN PELVIS W CON INDICATIONS: abdominal pain TECHNIQUE: After the administration of intravenous contrast, axial sections acquired from the lung bases to the pubic symphysis. Coronal and sagittal reformats were performed. For radiation dose reduction, the following was used: automated exposure control, adjustment of mA and/or kV according to patient size. COMPARISON: [facility], CT, ABDOMEN/PELVIS WITH CONTRAST, 02/04/2015, 23:48. FINDINGS: Image quality: Excellent. Lung bases: Small hiatal hernia. Calcified granuloma in the lung bases. Heart: No significant findings. ABDOMEN: Liver: Subcentimeter hypoattenuating liver lesion, too small to characterize by CT. Gallbladder: Unremarkable. Biliary ducts: Unremarkable. Pancreas: Unremarkable. Spleen: Unremarkable. Adrenal Glands: Mild nodular thickening of the left adrenal. Kidneys and Ureters: Unremarkable. Stomach and Bowel: Stomach, small bowel loops, and colon are unremarkable. Peritoneum: No abnormal intraperitoneal fluid. No free air. Ventral Wall: No hernias. Abdominal Nodes: No retroperitoneal or mesenteric adenopathy by size criteria. Vessels: Aorta and inferior vena cava are normal in size. PELVIS: Pelvic Organs: Unremarkable. Bladder: Unremarkable. Pelvic Nodes: No enlarged lymph nodes. Miscellaneous: No hernias are seen. Bones: Unremarkable. IMPRESSION: No acute findings to explain the patient's mid abdominal pain and epigastric pain. Normal gallbladder. No pancreatitis. Dictated by: Ty Davies M.D. on 02/03/2023 at 9:43 Approved by: Ty Davies M.D. on 02/03/2023 at 9:48
== END ==
PROVIDERS: PCP Family Medicine; Referring Provider Family Medicine; Visit Provider Family Medicine
DX: R10.9 Unspecified abdominal pain (principal); K44.9 Diaphragmatic hernia without obstruction or gangrene
CPT/HCPCS: 74177; Q9967

== ENCOUNTER 2023-02-13 14:05 | Emergency (ER) | payer OTHER, MEDICAID, SELFPAY ==
[2023-02-13 14:12] VITALS: BP 162/82; PULSE 103; RESP 19; TEMP 36.6; O2SAT 96; BMI 28.5
== END 2023-02-13 15:40 | disposition left against medical advice (07) ==
PROVIDERS: Emergency Provider Emergency Medicine; PCP Family Medicine
CPT/HCPCS: 99281

== ENCOUNTER 2023-02-14 12:34 | Emergency (ER) | payer OTHER, MEDICAID, SELFPAY ==
[2023-02-14 12:41] VITALS: BP 114/76; PULSE 83; RESP 13; TEMP 36.2; O2SAT 97; BMI 29.0
--- NOTE | 2023-02-14 13:45 | DI.RAD.S_ITS ---
PROCEDURE: XR FINGER RT MIN 2V INDICATIONS: possiblefelon/pulp space infection, distal thumb pain TECHNIQUE: AP hand, 2 views of the thumb acquired. COMPARISON: None. FINDINGS: Bones: No fractures or dislocations. No suspicious bony lesions. The tip of the index finger has irregularity likely remote trauma. Soft tissues: No suspicious soft tissue calcifications. No soft tissue gas or radiopaque foreign body. IMPRESSION: No acute osseous abnormality of the thumb. Dictated by: Dennis Thompson M.D. on 02/14/2023 at 14:26 Approved by: Dennis Thompson M.D. on 02/14/2023 at 14:28
--- NOTE | 2023-02-14 13:51 | ED.SKABFB ---
HPI - Skin/Abscess/Foreign Bdy <Rosa Galloway PA-C - Last Filed: 02/14/23 15:32> General Chief complaint: Skin/Abscess/Foreign Body Stated complaint: Right thumb/ fluid, throbbing Time Seen by Provider: 02/14/23 12:59 Source: patient Mode of arrival: Family Vehicle Limitations: no limitations History of Present Illness HPI narrative: 67-year-old male with a history of arthritis, cluster headaches, chronic right thumb pain, chronic pain, polysubstance dependence, bipolar 1, PTSD, anxiety presents with right thumb pain. Patient states that in the last couple of days the end of his right thumb starting at the joint has been very painful this morning he stabbed ?pliers or something into it because he thought maybe there was pus inside of it. He states this is not like the arthritis he is had in the base of his thumb this feels different, he does state that the prednisone taper he was placed on by his PCP for cluster headaches in late January was stopped recently because he had allergic symptoms with swelling of his tongue. His PCP is aware of this. Patient has not seen any redness of his finger denies fevers, chills or any other symptoms. He denies any foreign body that he knows of but does acknowledge that he stabbed something into it this morning to try to relieve the pain. Denies any other complaints or concerns. Related Data Previous Rx's Medication Instructions Recorded cyanocobalamin (vitamin B-12) 1,000 mcg PO Q DAY #90 tabs 01/15/17 1,000 mcg tablet,extended release albuterol sulfate 2.5 mg/3 mL 3 ml INH SEE INSTRUCTIONS PRN ##1 09/27/17 (0.083 %) solution for nebulization albuterol sulfate 90 mcg/actuation 2 puff inhalation Q4HP PRN 03/15/21 aerosol inhaler (Ventolin HFA) shortness of breath or wheezing #1 inh fluticasone propionate 220 1 puff inhalation BID emphysema vs 01/27/22 mcg/actuation HFA aerosol inhaler asthma management #12 grams (Flovent HFA) naproxen 250 mg tablet 250 mg PO BID PRN pain #14 tabs 06/27/22 duloxetine 30 mg capsule,delayed 30 mg PO BID #60 caps 12/18/22 release gabapentin 600 mg tablet 600 mg PO TID #90 tabs 12/18/22 (Neurontin) quetiapine 50 mg tablet 150 mg PO HS #90 tabs 12/19/22 allopurinol 100 mg tablet 100 mg PO DAILY #90 tabs 12/24/22 amitriptyline 100 mg tablet 100 mg PO HS #30 tabs 01/02/23 baclofen 10 mg tablet See Rx Instructions PO TID #120 01/13/23 tabs lamotrigine 100 mg tablet See Rx Instructions PO BID #60 tabs 01/15/23 oxycodone 5 mg tablet 5 mg PO Q6H PRN pain 30 days #120 02/03/23 tabs prednisone 10 mg tablet See Rx Instructions PO DIRECTED 02/03/23 #63 tabs sumatriptan succinate 6 mg/0.5 mL 6 mg (0.5 mL) SUBCUT ONCE #3 mL 02/12/23 subcutaneous pen injector Home Oxygen #1 ea 02/17/23 verapamil 240 mg 24 hr 240 mg PO DAILY #90 caps 02/18/23 capsule,extended release Allergies Allergy/AdvReac Type Severity Reaction Status Date / Time mold Allergy Severe Cough Verified 02/17/23 11:11 morphine [MORPHINE] Allergy Mild PAIN IN Verified 02/17/23 11:11 LEGS Review of Systems <Rosa Galloway PA-C - Last Filed: 02/14/23 15:32> Review of Systems Narrative: See HPI Patient History <Rosa Galloway PA-C - Last Filed: 02/14/23 15:32> Medical History Anxiety Bipolar disorder Cervical somatic dysfunction Cervical spine disease Chronic back pain Chronic cluster headache (06/23/13) Chronic pain of right thumb COPD (chronic obstructive pulmonary disease) Cranial somatic dysfunction Epigastric pain Hearing loss (08/10/94) History of alcohol abuse Hx of esophageal spasm Left ankle swelling Limb swelling [place] use Lumbar spine pain PTSD (post-traumatic stress disorder) Right arm fracture Spinal stenosis Substance abuse Thoracic region somatic dysfunction Unilateral occipital headache Upper extremity somatic dysfunction Vision abnormalities Whiplash injury to neck Surgical History Anesthesia History of facial surgery History of knee replacement (05/29/14) History of spinal fusion History of spinal fusion History of surgery on arm History of testicular surgery History of tonsillectomy Family History Mother Suicide Asthma Bipolar disorder Depression Sister Age: 72 Healthy adult Father Emphysema of lung Sister Crohn's disease Substance abuse Social History other: Pt lives with a friend who is a disabled [facility] vet who needs assistance, Smoking Status: Former smoker alcohol intake: never substance use type: marijuana Smoking Status: Former smoker tobacco type: cigarettes alcohol intake frequency: 0-2 drinks per day Substance Use Type: marijuana Exam <Rosa Galloway PA-C - Last Filed: 02/14/23 15:32> Narrative Exam Narrative: GENERAL: [67] year old patient appears stated age. Well-developed patient, in mild distress. HEAD: Atraumatic. Normocephalic. EYES: Pupils equal round and reactive. Extraocular motions intact. No scleral icterus. No injection or drainage. ENT: Nose without bleeding, purulent drainage. Airway patent. NECK: Trachea midline. CARDIOVASCULAR: Regular rate and rhythm without murmurs, gallops, or rubs. RESPIRATORY: Clear to auscultation. Breath sounds equal bilaterally. No wheezes, rales, or rhonchi. EXTREMITIES: The affected right thumb is not erythematous, patient does endorse tenderness with palpation of the D IP and the entire distal thumb. There is no skin discoloration noted of the distal thumb, there are 2 very small puncture appearing wounds without any bleeding noted in the tip of the right thumb. There is tenderness with palpation of the pad of the thumb and it is slightly firm as compared to the left. No edema or joint tenderness. NEURO: AOx3. SKIN: No rash or erythema of visible areas Initial Vital Signs Initial Vital Signs: Vital Signs Temperature 97.2 F L 02/14/23 12:41 Pulse Rate 83 02/14/23 12:41 Respiratory Rate 13 02/14/23 12:41 Blood Pressure 114/76 02/14/23 12:41 Pulse Oximetry 97 02/14/23 12:41 Oxygen Delivery Method Room Air 02/14/23 12:41 <Shaye Pena DO - Last Filed: 02/23/23 07:09> Initial Vital Signs Initial Vital Signs: Vital Signs Temperature 97.2 F L 02/14/23 12:41 Pulse Rate 83 02/14/23 12:41 Respiratory Rate 13 02/14/23 12:41 Blood Pressure 114/76 02/14/23 12:41 Pulse Oximetry 97 02/14/23 12:41 Oxygen Delivery Method Room Air 02/14/23 12:41 Course <Rosa Galloway PA-C - Last Filed: 02/14/23 15:32> Orders Ordered: ED Orders 02/14/23 13:45 XR finger RT min 2V Stat Vital Signs Vital signs: Vital Signs - 8 hr 02/14/23 12:41 02/14/23 15:02 Temperature 97.2 F L Pulse Rate 83 80 Respiratory Rate 13 Blood Pressure 114/76 121/77 Pulse Oximetry 97 99 Oxygen Delivery Method Room Air Room Air <Shaye Pena DO - Last Filed: 02/23/23 07:09> Orders Ordered: ED Orders 02/14/23 13:45 XR finger RT min 2V Stat Vital Signs Vital signs: Vital Signs - 8 hr 02/14/23 12:41 02/14/23 15:02 Temperature 97.2 F L Pulse Rate 83 80 Respiratory Rate 13 Blood Pressure 114/76 121/77 Pulse Oximetry 97 99 Oxygen Delivery Method Room Air Room Air MDM - Skin/Abscess/Foreign Bdy <Rosa Galloway PA-C - Last Filed: 02/14/23 15:32> Differential Diagnosis Differential diagnosis: Likely abscess of skin or subcutaneous tissue, cellulitis and other (Paronychia, felon, chronic pain) Medical Records Attestation: I reviewed the patient's medical records. Imaging Data Extremity x-ray #1: Radiologist's Impression: [address] [address] XRay Report Signed Patient: Shai Blanchard MR#: [id number] : 1955 Acct:[id number] Age/Sex: 67 / M Date of Service: 02/14/23 Loc: ED Accession Number: [id number] ?? Procedure: XR finger RT min 2V Ordering Provider: Rosa Galloway P.A-C PROCEDURE:? XR FINGER RT MIN 2V ? INDICATIONS:? possiblefelon/pulp space infection, distal thumb pain ? TECHNIQUE:? AP hand, 2 views of the thumb acquired.? ? COMPARISON:? None. ? FINDINGS:? ? Bones:? No fractures or dislocations.? No suspicious bony lesions.? The tip of the index finger has irregularity likely remote trauma. ? Soft tissues:? No suspicious soft tissue calcifications.? No soft tissue gas or radiopaque foreign body. ? IMPRESSION:? No acute osseous abnormality of the thumb. ? ? Dictated by: Dennis Thompson M.D. on 02/14/2023 at 14:26 ? ? Approved by: Dennis Thompson M.D. on 02/14/2023 at 14:28?? Treatment and disposition Shared decision making:: Shared decision-making was used indeterminate patient's plan of care and evaluation in the emergency department today. MDM Narrative Medical decision making narrative: This is a generally well-appearing 67-year-old male whose history is notable for chronic right thumb pain anxiety, PTSD, arthritis, chronic opioid use, who presents today with concern for pain of the distal right thumb from the D IP to the. Patient endorses that this pain became significant yesterday and feels it is different than his baseline arthritic thumb pain which he feels is more proximal. Patient does not have any definitive signs or findings of felon although somewhat suspicious for this. There is no erythema and no obvious swelling present there is tenderness of the affected distal thumb. X-rays obtained for further evaluation. Patient is placed in a warm soapy water soak, given patient did puncture his own thumb earlier this morning multiple times with puncture wounds visible, and some concern for infection do think it is reasonable to place the patient on antibiotics. As there is no definitive evidence of fluid collection based on exam do feel antibiotics are 1st best choice for treatment, though it is possible if this is a felon patient will require surgical or incision and drainage procedure. Reviewed the patient's some imaging with attending MD Dr. Pena also reviewing imaging as radiology read delayed and we do not see fluid collection or other concerning finding. I am less suspicious for gout in this patient based on the location of his pain although this is a possibility, but exam findings also do not suggest this. Patient is sent home on antibiotics, advised to follow up closely with PCP, return precautions provided, follow-up plan discussed, all questions answered. Discharge Plan Departure Patient Disposition: Home Clinical Impression: Pain of right thumb Activity Restrictions/Additional Instructions: *You have been diagnosed with [right thumb pain] *What to do: *Please continue to take your regular medications as directed. [ 1] New medication prescriptions sent to your pharmacy: [Augmentin] [ ] New medication written as a paper prescription [ ] No new medications given *Please follow up with your primary care provider in 2-3 days, call for an appointment. Let them know you were seen in the Emergency Department and that we ask that you be seen in follow up. We will electronically transmit a record of today's note if your PCP is in our system. There is some chance that there is an infection in your thumb causing your pain, also this morning you may have punctured year thumb when you tried to manipulate it and drain it, for this reason I do think you should be on antibiotics, if this is not improving your symptoms or if your developing increasing swelling, any redness, streaking or discoloration traveling up your thumb or fevers or other symptoms of concern do not hesitate to seek re-evaluation. You can continue regular pain medications as prescribed. *If you do not have a primary care provider please contact the [facility] Resource line at [phone]. They will ask some questions about your medical history and help get you set up with a doctor in the community. *Return to Emergency Department if you should have any new, worsening or concerning symptoms, such as [fever greater than 101 F, shaking chills, worsening pain, persistent vomiting or other bothersome symptoms] Prescriptions: No Action lamotrigine 100 mg tablet See Rx Instructions PO BID Qty: 60 3RF Rx Instructions: Take 150 mg (1.5 tabs) at bedtime for 14 days; then increase to 200 mg (2 tabs) at bedtime. cyanocobalamin (vitamin B-12) 1,000 MCG tablet extended release 1,000 mcg PO Q DAY Qty: 90 1RF albuterol sulfate 2.5 MG/3 ML solution for nebulization 3 ml INH SEE INSTRUCTIONS PRNQty: 1 3RF duloxetine 30 mg capsule,delayed release(DR/EC) 30 mg PO BID Qty: 60 2RF gabapentin [Neurontin] 600 mg tablet 600 mg PO TID Qty: 90 2RF quetiapine 50 mg tablet 150 mg PO HS Qty: 90 2RF amitriptyline 100 mg tablet 100 mg PO HS Qty: 30 2RF baclofen 10 mg tablet See Rx Instructions PO TID Qty: 120 5RF Rx Instructions: Take 1 tab in morning, 1 tab in afternoon, 2 tabs at bedtime. sumatriptan succinate 6 mg/0.5 mL pen injector 6 mg SUBCUT ONCE MDD 2 Qty: 3 12RF Rx Instructions: may repeat dose once in 1 hour if not relieved. for cluster headaches. verapamil 240 mg capsule,ext rel. pellets 24 hr 240 mg PO DAILY Qty: 90 3RF albuterol sulfate [Ventolin HFA] 90 mcg/actuation HFA aerosol inhaler 2 puff inhalation Q4HP PRN (Reason: shortness of breath or wheezing) Qty: 1 0RF prednisone 10 mg tablet See Rx Instructions PO DIRECTED Qty: 63 0RF Rx Instructions: orally as directed; taper instructions: 60mg daily for 3 days,50mg for 3 days, 40mg for 3 days, 30mg for 3 days, 20mg for 3 days, 10mg for 3 days oxycodone 5 mg tablet 5 mg PO Q6H PRN (Reason: pain) 30 Days Qty: 120 0RF Rx Instructions: EXEMPT (DME) Home Oxygen See Rx Instructions .Route .MEDSUPPLY Qty: 1 0RF Rx Instructions: Use oxygen at the start of a cluster headache via face mask at 15L for until headache is gone fluticasone propionate [Flovent HFA] 220 mcg/actuation HFA aerosol inhaler 1 puff inhalation BID Qty: 12 3RF Rx Instructions: Use every day to keep wheezing to a minimum. OK for albuterol as needed if wheezing not controlled with this inhaler. allopurinol 100 mg tablet 100 mg PO DAILY Qty: 90 3RF naproxen 250 mg tablet 250 mg PO BID PRN (Reason: pain) Qty: 14 0RF Referrals: Reji Chowdhury DO [Primary Care Provider] - Stand Alone Forms: Patient Portal/API <Shaye Pena DO - Last Filed: 02/23/23 07:09> Cosign ED Attending Kathy Attestation: I was immediately available in the department for consultation. Documentation has been reviewed.
--- NOTE | 2023-02-14 14:21 | PC.NURSE ---
Soaked right thumb in warm soapy watery per PA-C direction.
[2023-02-14 15:02] VITALS: BP 121/77; PULSE 80; O2SAT 99
== END 2023-02-14 15:11 | disposition home or self-care (01) ==
PROVIDERS: Emergency Provider Student in an Organized Health Care Education/Training Program; PCP Family Medicine
DX: M79.644 Pain in right finger(s) (principal); W18.30XA Fall on same level, unspecified, initial encounter
CPT/HCPCS: 73140; 99281; 99283

== ENCOUNTER → 2023-02-27 13:56 | Outpatient (CLI) | payer OTHER, MEDICAID, SELFPAY ==
[2023-02-27 14:57] LABS: Uric Acid 6.3 mg/dL (3.5-8.5)
== END ==
PROVIDERS: PCP Family Medicine; Referring Provider Family Medicine; Visit Provider Family Medicine
DX: M10.9 Gout, unspecified (principal)
CPT/HCPCS: 36415; 84550

== ENCOUNTER → 2023-03-04 10:11 | Outpatient (CLI) | payer OTHER, MEDICAID, SELFPAY ==
[2023-03-04 12:10] LABS: Hematocrit 34.7 % (41-53); Mean Corpuscular HGB Conc 34.5 % (30-36); Mean Corpuscular Hemoglobin 30.2 PG (26-34); Mean Corpuscular Volume 87.3 fL (80-100); Platelet Count 377 X10^3/uL (150-400); Red Blood Cell Count 3.98 X10^6/uL (4.5-5.9); Red Cell Distribution Width 13.6 % (11.6-14.8); White Blood Cell Count 7.3 X10^3/uL (4.5-11.0)
[2023-03-04 12:11] LABS: INR 1.1 (0.9-1.3); Prothrombin Time 12.3 SECONDS (10.1-12.7)
== END ==
PROVIDERS: PCP Family Medicine; Referring Provider Family Medicine; Visit Provider Family Medicine
DX: R23.8 Other skin changes (principal)
CPT/HCPCS: 36415; 85027; 85610

== ENCOUNTER 2023-03-28 17:50 | Emergency (ER) | payer OTHER, MEDICAID, SELFPAY ==
[2023-03-28 17:54] VITALS: BP 132/79; PULSE 82; RESP 18; TEMP 36.6; O2SAT 98; BMI 27.8
[2023-03-28 19:01] LABS: Influenza A - CEPHEID Flu A NEGATIVE (NEGATIVE); Influenza B - CEPHEID Flu B NEGATIVE (NEGATIVE); Respiratory Syncytial Virus Negative (Negative)
[2023-03-28 19:15] LABS: COVID-19 CEPHEID 4-PLEX PCR Negative (Negative)
== END 2023-03-28 18:37 | disposition left against medical advice (07) ==
PROVIDERS: Emergency Medicine; Emergency Provider Emergency Medicine; PCP Family Medicine
DX: G43.909 Migraine, unspecified, not intractable, without status migrainosus (principal); Z20.822 Contact with and (suspected) exposure to COVID-19
CPT/HCPCS: 0241U; 99281

== ENCOUNTER 2023-03-28 20:01 | Emergency (ER) | payer OTHER, MEDICAID, SELFPAY ==
--- NOTE | 2023-03-28 20:31 | PC.NURSE ---
Pt given ice pack in waiting room for headache
--- NOTE | 2023-03-28 20:50 | PC.NURSE ---
Called patient 3 times for triage.
[2023-03-28 21:29] VITALS: BP 136/83; PULSE 81; RESP 16; TEMP 36.6; O2SAT 98; BMI 27.8
--- NOTE | 2023-03-28 22:20 | PC.NURSE ---
Pt called back via red phone and states I'm going to go to [facility]. I'm sorry, I can't wait anymore. Informed pt that we should have a room shortly and pt still wanted to leave. Did not want to sign paperwork before departure.
== END 2023-03-28 22:33 | disposition left against medical advice (07) ==
PROVIDERS: Emergency Provider Emergency Medicine; PCP Family Medicine
CPT/HCPCS: 99281

== ENCOUNTER 2023-03-31 12:09 | Emergency (ER) | payer OTHER, MEDICAID, SELFPAY ==
[2023-03-31 12:14] VITALS: BP 125/74; PULSE 83; RESP 22; TEMP 36.1; O2SAT 98; BMI 27.8
--- NOTE | 2023-03-31 12:18 | DI.RAD.S_ITS ---
PROCEDURE: XR CHEST 2V INDICATIONS: food bolus TECHNIQUE: 2 views of the chest were acquired. COMPARISON: [facility], CR, XR CHEST 1V, 08/13/2022, 18:33. FINDINGS: Surgical changes and devices: None. Lungs and pleura: Streaky opacity in the right lower lung, probable atelectasis, similar to prior. No pleural effusions or pneumothorax. Mediastinum: Mediastinal contours are normal. Heart size is normal. Bones and chest wall: No suspicious bony abnormalities. Soft tissues appear unremarkable. IMPRESSION: Left basal atelectasis. Dictated by: Josiane Gonzalez M.D. on 03/31/2023 at 13:05 Approved by: Josiane Gonzalez M.D. on 03/31/2023 at 13:06
--- NOTE | 2023-03-31 12:24 | PC.NURSE ---
Ambulatory to restroom, vomiting.
--- NOTE | 2023-03-31 12:28 | PC.NURSE ---
patient reports some relief after vomiting. I think there might still be something there but feels better
== END 2023-03-31 14:22 | disposition left against medical advice (07) ==
PROVIDERS: Emergency Provider Emergency Medicine; PCP Family Medicine
DX: R06.00 Dyspnea, unspecified (principal)
CPT/HCPCS: 71046; 99283

== ENCOUNTER 2023-04-29 11:46 | Emergency (ER) | payer OTHER, MEDICAID, SELFPAY ==
[2023-04-29 11:48] VITALS: BP 116/81; PULSE 89; RESP 18; TEMP 36.8; O2SAT 98; BMI 27.6
--- NOTE | 2023-04-29 12:25 | ED.WOUNDLAC ---
HPI - Wound/Laceration General Chief Complaint: Wound/Laceration Stated Complaint: gashed open knuckle/bleeding Time Seen by Provider: 04/29/23 12:12 Source: patient Mode of arrival: Ambulatory History of Present Illness HPI narrative: 67-year-old male who is here for evaluation of a cut to his left index finger. He states he was working with an oxygen bottle that he has at home that he uses for his cluster headaches when he cut his finger. He did cover with a bandage prior to arrival. No other interventions. Related Data Home Medications Medication Instructions Recorded Confirmed oxycodone 5 mg tablet 5 mg PO Q6H PRN 04/08/23 04/23/23 lamotrigine 100 mg tablet 100 mg PO .HS 04/23/23 04/23/23 Previous Rx's Medication Instructions Recorded cyanocobalamin (vitamin B-12) 1,000 mcg PO Q DAY #90 tabs 01/15/17 1,000 mcg tablet,extended release albuterol sulfate 2.5 mg/3 mL 3 ml INH SEE INSTRUCTIONS PRN ##1 09/27/17 (0.083 %) solution for nebulization albuterol sulfate 90 mcg/actuation 2 puff inhalation Q4HP PRN 03/15/21 aerosol inhaler (Ventolin HFA) shortness of breath or wheezing #1 inh Home Oxygen #1 ea 02/17/23 verapamil 240 mg 24 hr 240 mg PO DAILY #90 caps 02/18/23 capsule,extended release allopurinol 300 mg tablet 300 mg PO DAILY #90 tabs 03/04/23 baclofen 10 mg tablet See Rx Instructions PO TID #120 03/04/23 tabs quetiapine 50 mg tablet 150 mg PO HS #90 tabs 03/10/23 duloxetine 30 mg capsule,delayed 30 mg PO BID #60 caps 03/12/23 release sumatriptan succinate 6 mg/0.5 mL 6 mg (0.5 mL) SUBCUT ONCE #3 mL 03/18/23 subcutaneous solution syringe with needle 3 mL 25 x 5/8 #100 ea 03/18/23 (BD Luer-Laure Syringe) amitriptyline 100 mg tablet 100 mg PO HS #30 tabs 04/06/23 fluticasone propionate 220 1 puff inhalation BID emphysema vs 04/10/23 mcg/actuation HFA aerosol inhaler asthma management #12 grams (Flovent HFA) gabapentin 600 mg tablet 600 mg PO BEDTIME #90 tabs 04/10/23 (Neurontin) albuterol sulfate 90 mcg/actuation 2 inh inhalation Q4-6H PRN 04/23/23 aerosol inhaler shortness of breath or wheezing #6.7 grams clonazepam 0.5 mg tablet 0.5 mg PO BID #30 tabs 04/23/23 Allergies Allergy/AdvReac Type Severity Reaction Status Date / Time mold Allergy Severe Cough Verified 04/10/23 09:52 morphine [MORPHINE] Allergy Mild PAIN IN Verified 04/10/23 09:52 LEGS Review of Systems Constitutional Constitutional: Reports system reviewed and no additional complaints, except as documented Musculoskeletal Musculoskeletal: Reports system reviewed and no additional complaints, except as documented Integumentary/Breasts Skin/Breast: Reports system reviewed and no additional complaints, except as documented Neurologic Neurologic: Reports system reviewed and no additional complaints, except as documented Patient History Medical History Anxiety Bipolar disorder Cervical somatic dysfunction Cervical spine disease Chronic back pain Chronic cluster headache (06/23/13) Chronic pain of right thumb COPD (chronic obstructive pulmonary disease) Cranial somatic dysfunction Epigastric pain Hearing loss (08/10/94) History of alcohol abuse Hx of esophageal spasm Insomnia Left ankle swelling Limb swelling [place] use Lumbar spine pain PTSD (post-traumatic stress disorder) Right arm fracture Spinal stenosis Substance abuse Thoracic region somatic dysfunction Unilateral occipital headache Upper extremity somatic dysfunction Vision abnormalities Whiplash injury to neck Surgical History (Updated 04/29/23 @ 12:44 by Harvinder Pollack DO) Anesthesia History of facial surgery History of knee replacement (05/29/14) History of spinal fusion History of spinal fusion History of surgery on arm History of testicular surgery History of tonsillectomy Family History Mother Suicide Asthma Bipolar disorder Depression Sister Age: 72 Healthy adult Father Emphysema of lung Sister Crohn's disease Substance abuse Social History other: Pt lives with a friend who is a disabled [facility] vet who needs assistance, Smoking Status: Former smoker alcohol intake: never substance use type: marijuana Smoking Status: Former smoker tobacco type: cigarettes alcohol intake frequency: 0-2 drinks per day Substance Use Type: marijuana Exam Initial Vital Signs Initial Vital Signs: Vital Signs Temperature 98.2 F 04/29/23 11:48 Pulse Rate 89 04/29/23 11:48 Respiratory Rate 18 04/29/23 11:48 Blood Pressure 116/81 04/29/23 11:48 Pulse Oximetry 98 04/29/23 11:48 Oxygen Delivery Method Room Air 04/29/23 11:48 Skin Other: 2 cm laceration that is superficial on the dorsum of the left index finger over the PIP joint. Procedures Laceration Repair Laceration 1: Site: hand Side (If applicable): left Size (cm): 2 Description: linear Depth: simple, single layer Local Anesthetic: lidocaine 1% Amount of anesthesia used (mL): 2 Pre-repair: wound explored Skin layer closed with: nylon Skin layer suture size: 5-0 Number of sutures: 7 Technique: simple, interrupted Course Orders Ordered: Discontinued Medications Hydrocodone Bitart/Acetaminophen (Hydrocodone/Acet 5/325 Tablet) 1 tab PO NOW ONE Stop: 04/29/23 12:41 Bacitracin (Bacitracin Oint 0.9 Gm Pckt) 1 applic TOP NOW ONE Stop: 04/29/23 12:41 Vital Signs Vital signs: Vital Signs - 8 hr 04/29/23 11:48 Temperature 98.2 F Pulse Rate 89 Respiratory Rate 18 Blood Pressure 116/81 Pulse Oximetry 98 Oxygen Delivery Method Room Air MDM - Wound/Laceration MDM Narrative Medical decision making narrative: The laceration was closed as described above. It was cleaned. Low suspicion for tendon or bony injury. Patient was given care instructions and return precautions. Discharge Plan Departure Patient Disposition: Elopement Clinical Impression: H/O laceration repair Instructions: DI for Laceration Repair Activity Restrictions/Additional Instructions: The stitches that were placed today will need to be removed in approximately 7-10 days. You can wash your hands like normal until then. Contact your primary doctor for a follow-up. Prescriptions: No Action clonazepam 0.5 mg tablet 0.5 mg PO BID Qty: 30 1RF cyanocobalamin (vitamin B-12) 1,000 MCG tablet extended release 1,000 mcg PO Q DAY Qty: 90 1RF albuterol sulfate 2.5 MG/3 ML solution for nebulization 3 ml INH SEE INSTRUCTIONS PRNQty: 1 3RF verapamil 240 mg capsule,ext rel. pellets 24 hr 240 mg PO DAILY Qty: 90 3RF quetiapine 50 mg tablet 150 mg PO HS Qty: 90 2RF duloxetine 30 mg capsule,delayed release(DR/EC) 30 mg PO BID Qty: 60 2RF sumatriptan succinate 6 mg/0.5 mL solution 6 mg SUBCUT ONCE MDD 2 Vials (1mL) Qty: 3 12RF Rx Instructions: May repeat dose once in 1 hour if not relieved. For cluster headaches. (DME) BD Luer-Laure Syringe 3 mL 25 x 5/8 syringe See Rx Instructions .Route Qty: 100 0RF Rx Instructions: USE TO DRAW AND INJECT SUMATRIPTAN SUBCUTANEOUSLY AT ONSET OF HEADACHE. NOT TO EXCEED 2 INJECTIONS IN 24 HOUR PERIOD. amitriptyline 100 mg tablet 100 mg PO HS Qty: 30 0RF oxycodone 5 mg tablet 5 mg PO Q6H PRN Rx Instructions: med was last picked up from pharmacy on 04/08/23 for a quantity of #120, patient is aware that he is only allowed 4 tablets daily albuterol sulfate 90 mcg/actuation HFA aerosol inhaler 2 inh inhalation Q4-6H PRN (Reason: shortness of breath or wheezing) Qty: 6.7 6RF albuterol sulfate [Ventolin HFA] 90 mcg/actuation HFA aerosol inhaler 2 puff inhalation Q4HP PRN (Reason: shortness of breath or wheezing) Qty: 1 0RF allopurinol 300 mg tablet 300 mg PO DAILY Qty: 90 3RF baclofen 10 mg tablet See Rx Instructions PO TID Qty: 120 5RF Rx Instructions: Take 1 tab in morning, 1 tab in afternoon, 2 tabs at bedtime. (DME) Home Oxygen See Rx Instructions .Route .MEDSUPPLY Qty: 1 0RF Rx Instructions: Use oxygen at the start of a cluster headache via face mask at 15L for until headache is gone lamotrigine 100 mg tablet 100 mg PO .HS gabapentin [Neurontin] 600 mg tablet 600 mg PO BEDTIME Qty: 90 0RF Rx Instructions: Perhaps this will help with insomnia and headache. Watch for sedation if taken during day. fluticasone propionate [Flovent HFA] 220 mcg/actuation HFA aerosol inhaler 1 puff inhalation BID Qty: 12 3RF Rx Instructions: Use every day to keep wheezing to a minimum. OK for albuterol as needed if wheezing not controlled with this inhaler. Referrals: Reji Chowdhury DO [Primary Care Provider] -
[2023-04-29] MEDS: HYDROCODONE/ACET 5/325 TABLET 1 TAB PO (12:48)
[2023-04-29] MEDS: BACITRACIN OINT 0.9 GM PCKT 1 APPLIC TOP (12:48)
[2023-04-29 12:56] VITALS: BP 106/69; PULSE 91; O2SAT 98
== END 2023-04-29 12:59 | disposition home or self-care (01) ==
PROVIDERS: Emergency Provider Emergency Medicine; PCP Family Medicine
DX: S61.211A Laceration without foreign body of left index finger without damage to nail, initial encounter (principal); W26.8XXA Contact with other sharp object(s), not elsewhere classified, initial encounter
CPT/HCPCS: 12001; 99283

== ENCOUNTER → 2023-05-18 15:19 | Outpatient (CLI) | payer OTHER, MEDICAID, SELFPAY ==
--- NOTE | 2023-05-18 15:31 | DI.MRI.S_ITS ---
PROCEDURE: MR HEAD/BRAIN WO CON INDICATIONS: chronic left side cluster headaches, debilitating TECHNIQUE: Non-contrast axial T1 spin echo, axial T2 fast spin echo, sagittal and axial FLAIR, coronal T2 fast spin echo, axial gradient echo, axial diffusion and ADC through the brain. COMPARISON: [facility], MR, BRAIN W&WO CONTRAST, 11/19/2015, 11:49. [facility], CT, HEAD WITHOUT CONTRAST, 07/09/2017, 15:13. FINDINGS: Image quality: This examination is limited by involuntary motion artifact. CSF spaces: Ventricles appear symmetric in size and shape. Basal cisterns are patent. No extra-axial fluid collections. Brain: No intracranial bleeds or mass effects. There is cerebral volume loss for age. There are periventricular and deep white matter chronic small vessel ischemic changes. Brainstem appears normal. Diffusion-weighted images show no acute ischemic insults. No chronic ischemic insults. Normal intravascular flow voids are present. Skull and face: Calvarial bone marrow is normal in signal. Orbits are normal. Sinuses: Sinuses and mastoids are clear. IMPRESSION: Unremarkable intracranial study, without an imaging explanation found for the patient's presenting history of headache. To the limits of this study performed without IV contrast, no findings of masses or mass effect can be seen. Dictated by: Mando English M.D. on 05/18/2023 at 15:24 Approved by: Mando English M.D. on 05/18/2023 at 15:26
== END ==
PROVIDERS: PCP Family Medicine; Referring Provider Physician Assistant; Visit Provider Physician Assistant
DX: G44.029 Chronic cluster headache, not intractable (principal)
CPT/HCPCS: 70551

== ENCOUNTER → 2023-06-26 14:25 | Outpatient (CLI) | payer OTHER, MEDICAID, SELFPAY ==
[2023-06-26 21:55] LABS: Influenza A - CEPHEID Flu A NEGATIVE (NEGATIVE); Influenza B - CEPHEID Flu B NEGATIVE (NEGATIVE); Respiratory Syncytial Virus Negative (Negative)
[2023-06-26 21:58] LABS: COVID-19 CEPHEID 4-PLEX PCR Negative (Negative)
== END ==
PROVIDERS: PCP Family Medicine; Visit Provider Family Medicine
DX: R05.9 Cough, unspecified (principal)
CPT/HCPCS: 0241U

== ENCOUNTER 2023-08-14 08:59 | Day surgery (SDC) | payer OTHER, MEDICAID, SELFPAY ==
--- NOTE | 2023-08-14 | PATH_ITS ---
[facility] Accession Number: [id number] No. of containers..01 Tissue . 01 Material submitted: . esophagus, E-G Junction - ESOPHAGEAL JUNCTION . 01 Diagnosis: Esophageal Junction, Biopsy: Invasive adenocarcinoma, moderately to poorly differentiated, intestinal-pattern, arising in a background of ulcer. Negative for HER2 overexpression by immunohistochemistry (Score 1+). See comment. MRV 08/20/2023 1604 Local . 01 Comment: Dr. Barone also reviewed this case and agrees with the diagnosis. Dr. Marcela Brice discussed preliminary results with Dr. Taylor Law on 08/19/2023 at 3:40 p.m. . 01 Electronically signed: . Marcela Brice MD, Pathologist NPI- [id number] . 01 Gross description: . ESOPHAGEAL JUNCTION: Received in formalin are 3 fragment(s) of trevino, soft tissue measuring 0.2 x 0.2 x 0.2 cm to 0.4 x 0.3 x 0.3 cm submitted entirely in 1 cassette(s) /JOON 08/17/2023 1918 Local . 01 Microscopic: . A mucicarmine stain was performed to evaluate neoplastic cells of interest, and is positive, consistent with adenocarcinoma. . RESULTS: HER2 (4B5): Negative (Score 1+). . COMMENT: Testing performed on Block Number: A1 The criteria used is based on the ToGA Trial for Scoring HER2 Expression by Immunohistochemistry (IHC) in Gastric and Esophagogastric Junction Adenocarcinoma and the current ASCO/CAP 2013 guidelines. . Bryce MENENDEZ et al. Trastuzumab in combination with chemotherapy versus chemotherapy alone for treatment of HER2-positive advanced gastric or gastro-oesophageal junction cancer (ToGA): a phase 3, open-label, randomised controlled trial. Lancet. 2009Apr 06;376(6864):896-62. . *This test was developed and its performance characteristics determined by [facility]. It has not been cleared or approved by the U.S. Food and Drug Administration. The FDA has determined that such clearance or approval is not necessary. This test is used for clinical purposes. It should not be regarded as investigational or for research. . 01 Pathologist provided ICD-10: C15.9 . 01 CPT . 123282, 392497, 703688 Specimen Comment: A courtesy copy of this report has been sent to [phone] Performed at: [facility] [address] [place] [address], [place], [place] [id number] MD Abilio Barone MD Phone: [phone]
[2023-08-14 09:34] VITALS: BP 120/81; PULSE 97; RESP 16; TEMP 36.2; O2SAT 98; BMI 26.4
[2023-08-14] MEDS: ALBUTEROL/IPRATROPIUM 3 ML AMPUL INH (09:50)
[2023-08-14] MEDS: LACTATED RINGERS 1,000 ML 42 ML IV (09:51)
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
--- NOTE | 2023-08-14 10:37 | PM.OP.EGD ---
Operative Date/Time/Diagnoses Date of procedure: 08/14/23 Time of procedure: 10:37 Pre-op diagnosis: Epigastric pain Post-op diagnosis: same Procedure & Clinicians Study performed: EGD with biopsy cold forceps using anesthesia Same procedure as scheduled: Yes Indications: Epigastric pain Surgeon: Taylor Law Procedure Notes Procedure in detail: Preop diagnosis: Epigastric pain Postop diagnosis: Same Operative procedure: EGD with cold forceps biopsy of the GE junction. Surgeon: Rosemarie Law MD Findings: Very irritated GE junction can not rule out a mass. Significant gastritis no overt ulcerations or erosions. Moderate size hiatal hernia Procedure: Patient placed in a lateral position. Scope was inserted into the esophagus advanced into the stomach. With insufflation identified the pylorus intubated into the duodenal. First and 2nd portion of duodenal are within normal limits. Stomach shows significant gastritis throughout, no erosions, no ulcers. Retroflex demonstrates hiatal hernia. Hiatal hernias moderate in size. Esophagus has no esophagitis however the GE junction is ragged, and bloody. , no stenosis. Can not rule out underlying mass. Biopsies taken. Scope was withdrawn patient was awakened taken to recovery room in stable condition. Needle, instrument, sponge counts were correct. Impression: Concerning GE junction with a ragged, deformed appearance, can not rule out a mass. However it is circumferential. Moderate hiatal hernia. Gastritis. Plan: Follow up in general surgery clinic for results of EGD. Should be on a PPI b.i.d. until that time Findings: gastritis, hiatal hernia and other findings (Ragged bloody distal esophagus can not rule out mass) Specimen(s): other (Distal esophageal biopsies with cold forceps) Complications: none Post-procedure Recommendations: No ASA/NSAIDs Follow up: weeks (Lisa in 2 weeks) Disposition: PACU
[2023-08-14 10:41] VITALS: BP 119/78; PULSE 84; RESP 14; TEMP 36.6; O2SAT 95
[2023-08-14 10:46] VITALS: BP 119/78; PULSE 84; RESP 17; O2SAT 95
[2023-08-14 10:51] VITALS: BP 114/77; PULSE 80; RESP 19; O2SAT 98
[2023-08-14 11:10] VITALS: BP 118/62; PULSE 89; RESP 16; TEMP 36.1; O2SAT 97
== END 2023-08-14 11:10 | disposition home or self-care (01) ==
PROVIDERS: PCP Family Medicine; Referring Provider Surgery; Visit Provider Surgery
PROC: 0DJ08ZZ Inspection of Upper Intestinal Tract, Via Natural or Artificial Opening Endoscopic (ICD-10-PCS; CPT 43235; principal; 2023-08-14 10:00)
DX: C15.9 Malignant neoplasm of esophagus, unspecified (principal); K29.70 Gastritis, unspecified, without bleeding; K44.9 Diaphragmatic hernia without obstruction or gangrene
CPT/HCPCS: 43239; J2704

== ENCOUNTER 2023-11-13 17:43 | Emergency (ER) | payer OTHER, MEDICAID, SELFPAY ==
[2023-11-13] VITALS (7 sets, daily range): BP systolic 121–124; BP diastolic 63–83; PULSE 94–110; RESP 14–20; TEMP 37.2; O2SAT 96–98; BMI 23.6
[2023-11-13] MEDS: ONDANSETRON 4 MG/2 ML INJ IV (18:05)
[2023-11-13 18:22] LABS: Basophils Absolute Auto 0 /uL (0-100); Basophils Percent Auto 0.1 % (0-2); Lymphocytes Absolute Auto 400 /uL (1100-4500); Monocytes Absolute Auto 200 /uL (0-900); Neutrophils Absolute Auto 9900 /uL (1500-7000)
[2023-11-13] MEDS: SODIUM CHLORIDE 0.9% 1,000 ML 1000 ML IV (18:27)
[2023-11-13 18:30] LABS: Add Manual Diff / Slide Review NO; Eosinophils Absolute Auto 0 /uL (0-450); Eosinophils Percent Auto 0.4 % (2-4); Hematocrit 34.9 % (41-53); Hemoglobin 11.5 g/dL (13.5-17.5); Lymphocytes Percent Auto 3.5 % (25-40); Mean Corpuscular Hemoglobin 27.7 PG (26-34); Mean Corpuscular Volume 83.8 fL (80-100); Monocytes Percent Auto 2.3 % (3-14); Neutrophils Percent Auto 93.7 % (50-75); Platelet Count 445 X10^3/uL (150-400); Red Blood Cell Count 4.16 X10^6/uL (4.5-5.9); White Blood Cell Count 10.6 X10^3/uL (4.5-11.0)
[2023-11-13 18:34] LABS: Lactate (Lactic Acid) 1.6 mmol/L (0.7-2.1)
[2023-11-13 18:35] LABS: Alanine Aminotransferase 35 IU/L (<50); Albumin 3.3 g/dL (3.5-5.0); Albumin Globulin Ratio 1.2 (1.0-2.8); Alkaline Phosphatase 103 U/L (38-126); Aspartate Aminotransferase 33 IU/L (17-59); BUN Creatinine Ratio 26.5 (6-22); Bilirubin Total 0.6 mg/dL (0.2-1.3); Blood Urea Nitrogen 18 mg/dL (9-20); Calcium 9.2 mg/dL (8.4-10.2); Carbon Dioxide 31 mmol/L (22-32); Chloride 98 mmol/L (98-107); Estimated Glomerular Filt Rate > 60 mL/min (>60); Globulin 2.8 g/dL (1.7-4.1); Glucose 99 mg/dL (80-110); HEMOLYSIS < 15 (0-50); Lipase 14 U/L (23-300); Potassium 4.6 mmol/L (3.4-5.1); Sodium 133 mmol/L (137-145); Total Protein 6.1 g/dL (6.3-8.2)
[2023-11-13 18:51] LABS: Procalcitonin 0.34 ng/mL (<0.5)
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
== END 2023-11-13 20:11 | disposition home or self-care (01) ==
PROVIDERS: Emergency Provider Emergency Medicine; PCP Family Medicine
DX: R11.0 Nausea (principal); R10.9 Unspecified abdominal pain; Z79.899 Other long term (current) drug therapy; Z97.8 Presence of other specified devices
CPT/HCPCS: 80053; 83605; 83690; 84145; 85025; 93005; 96361; 96374; 99283; 99284; J2405

== ENCOUNTER → 2024-03-15 10:23 | Outpatient (CLI) | payer OTHER, MEDICAID, SELFPAY | PROVIDERS: PCP Family Medicine; Visit Provider Physician Assistant | DX: Z93.1 Gastrostomy status (principal); T14.8XXA Other injury of unspecified body region, initial encounter | CPT/HCPCS: 87070; 87205 ==

== ENCOUNTER → 2024-03-18 13:55 | Outpatient (CLI) | payer OTHER, MEDICAID, SELFPAY ==
[2024-03-18 17:11] LABS: Appearance Urine UA CLEAR; Bilirubin Urine UA NEGATIVE (NEGATIVE); Color Urine UA YELLOW; Glucose Urine UA NEGATIVE (Negative); Ketones Urine UA NEGATIVE (NEGATIVE); Leukocyte Esterase Urine UA TRACE (NEGATIVE); Nitrite Urine UA NEGATIVE (Negative); Occult Blood Urine UA NEGATIVE (Negative); Protein Urine UA NEGATIVE (Negative); Specific Gravity Urine UA <=1.005 (1.000-1.035)
[2024-03-18 17:17] LABS: Bacteria Urine None Seen; Culture Indicated Urine Cult Not Indicated; RBC Urine None Seen (0-5/HPF); Squamous Epithelial Cell Urine None Seen (0-5/HPF); Urine Volume 10mL (spun); WBC Urine None Seen (0-5/HPF)
== END ==
PROVIDERS: PCP Family Medicine; Visit Provider Family Medicine
DX: R39.9 Unspecified symptoms and signs involving the genitourinary system (principal)
CPT/HCPCS: 81001

== ENCOUNTER 2024-05-03 11:14 | Inpatient (IN) | payer OTHER, MEDICAID, SELFPAY ==
[2024-05-03] VITALS (16 sets, daily range): BP systolic 93–127; BP diastolic 56–74; PULSE 73–113; RESP 12–28; TEMP 36.3–37.2; O2SAT 89–98; BMI 19.0
--- NOTE | 2024-05-03 11:23 | DI.RAD.S_ITS ---
PROCEDURE: XR CHEST 1V INDICATIONS: suspected sepsis TECHNIQUE: One view of the chest was acquired. COMPARISON: [facility], US, US CHEST PLEURAL, 04/13/2024, 8:13. [facility], CT, CT CHEST WITHOUT CONTRAST, 04/12/2024, 16:48. [facility], CR, XR CHEST 2V, 03/31/2023, 12:28. FINDINGS: Surgical changes and devices: Fusion hardware in visualized lower cervical spine is seen. Right chest wall Port-A-Cath tip is in SVC. Lungs and pleura: Severe bolus disease in bilateral upper lung [place] are again seen. Extensive airspace opacities are noted in bilateral mid to lower lung [place]. Small right pleural effusion is seen. There is possible moderate size right apical pneumothorax measures 5.5 cm in craniocaudal dimension. No gross left-sided pneumothorax. Mediastinum: Mediastinal contours appear normal. Heart size is normal. Bones and chest wall: No suspicious bony lesions. Overlying soft tissues appear unremarkable. IMPRESSION: Severe bullous disease in bilateral upper lung [place] with markedly increased lucencies. There is concern of a moderate size right apical pneumothorax as described above. Persistent bilateral lower lobe infiltrates. Trace right pleural effusion. No left-sided pneumothorax. Dictated by: Konstantin Harrison M.D. on 05/03/2024 at 11:57 Approved by: Konstantin Harrison M.D. on 05/03/2024 at 12:01
--- NOTE | 2024-05-03 11:36 | EKG_ITS ---
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
--- NOTE | 2024-05-03 11:38 | ED.GENADULT ---
HPI - General Adult General Chief complaint: Shortness of Breath/Dyspnea Stated complaint: fever, SOB, nausea vomitting Time Seen by Provider: 05/03/24 11:34 Source: patient Mode of arrival: Ambulatory History of Present Illness HPI narrative: 68-year-old gentleman with a history of recurrent distal esophageal cancer, aspiration pneumonia, J-tube in place, bipolar disorder, seizure disorder, cancer-related pain and emphysema presents complaining of increasing cough general malaise fever noted at home, vomiting much of the evening and feeling poorly. His cough is more productive than it has been over the last couple of days. Of note he was admitted to the hospital for a right lower lobe aspiration pneumonia April 09 through April 15. He is continuing to use her feeding tube, minimal oral intake but he is able to vomit. Related Data Home Medications Medication Instructions Recorded Confirmed ondansetron 8 mg disintegrating 8 mg PO 3XD 03/15/24 05/03/24 tablet amitriptyline 100 mg tablet 300 mg PO BEDTIME 05/03/24 05/03/24 baclofen 10 mg tablet 30 mg PO BEDTIME 05/03/24 05/03/24 duloxetine 30 mg capsule,delayed 60 mg PO BEDTIME 05/03/24 05/03/24 release gabapentin 600 mg tablet 600 mg PO BEDTIME insomnia 05/03/24 05/03/24 lamotrigine 100 mg tablet 100 mg PO BEDTIME 05/03/24 05/03/24 quetiapine 50 mg tablet 150 mg PO BEDTIME 05/03/24 05/03/24 Previous Rx's Medication Instructions Recorded Home Oxygen #1 ea 02/17/23 syringe with needle 3 mL 25 x 5/8 #100 ea 03/18/23 (BD Luer-Laure Syringe) albuterol sulfate 90 mcg/actuation 2 inh inhalation Q4-6H PRN 02/05/24 aerosol inhaler shortness of breath or wheezing #6.7 grams Disabled Parking Permit #1 ea 04/05/24 oxycodone 5 mg/5 mL oral solution 10 mg (10 mL) PO Q4-6H PRN CANCER 04/26/24 pain #1,000 mL Allergies Allergy/AdvReac Type Severity Reaction Status Date / Time mold Allergy Severe Cough Verified 05/03/24 11:17 Review of Systems Review of Systems Narrative: Pertinent positive and negative findings as per HPI Patient History Medical History Aspiration pneumonia GARCIA (dyspnea on exertion) Severe headache Cancer associated pain Weight loss, non-intentional Urinary tract infection symptoms Class 1 obesity (06/23/13) Gastrointestinal tube in situ Insomnia Epigastric pain Hx of esophageal spasm Upper extremity somatic dysfunction Chronic pain of right thumb Left ankle swelling Thoracic region somatic dysfunction Cervical somatic dysfunction Cranial somatic dysfunction Unilateral occipital headache Whiplash injury to neck PTSD (post-traumatic stress disorder) Limb swelling [place] use COPD (chronic obstructive pulmonary disease) Lumbar spine pain Right arm fracture Chronic back pain Vision abnormalities Hearing loss (08/10/94) History of alcohol abuse Substance abuse Bipolar disorder Anxiety Spinal stenosis Cervical spine disease Chronic cluster headache (06/23/13) Surgical History Anesthesia History of surgery on arm History of facial surgery History of testicular surgery History of spinal fusion History of spinal fusion History of tonsillectomy History of knee replacement (05/29/14) Family History Mother Suicide Asthma Bipolar disorder Depression Sister Age: 73 Healthy adult Father Emphysema of lung Sister Crohn's disease Substance abuse Social History household members: none other: Pt lives with a friend who is a disabled [facility] vet who needs assistance, Smoking Status: Former smoker alcohol intake: never substance use type: marijuana Smoking Status: Former smoker tobacco type: cigarettes alcohol intake frequency: 0-2 drinks per day Substance Use Type: marijuana Exam Initial Vital Signs Initial Vital Signs: Vital Signs Temperature 98.9 F 05/03/24 11:17 Pulse Rate 113 H 05/03/24 11:17 Respiratory Rate 28 H 05/03/24 11:17 Blood Pressure 105/70 05/03/24 11:17 Pulse Oximetry 93 05/03/24 11:17 Oxygen Delivery Method Room Air 05/03/24 11:17 General: Cachectic appearing, tachypneic, tachycardic appears generally unwell but he is able to speak in full sentences HEENT: Dry mucous membranes, normal sclera with reactive pupils, Neck: No JVD, supple Respiratory: Lungs bases with rhonchi right greater than left, scattered rales no significant wheezing Cardiac: Tachycardic, 2/6 murmur Abdomen: Soft, scaphoid, nontender, J-tube in place without complication, no flank pain Skin: Slightly jaundiced, warm to the touch, no obvious rashes or cellulitis Neurologic: Globally weak but otherwise Grossly neurologically intact with no obvious asymmetries or abnormalities Extremities: No trauma, no lower extremity edema Psych: Cooperative, appropriate insight and affect Course Orders Ordered: ED Orders 05/03/24 11:23 XR chest 1V Stat EKG-12 Lead Stat 05/03/24 11:54 Complete Blood Count AUTO DIFF Stat Comprehensive Metabolic Panel Stat Lactate (Lactic Acid) Stat Lipase Stat PTT Partial Thromboplastin Walt Stat Procalcitonin Stat Prothrombin Time INR Stat 05/03/24 12:28 Blood Culture Stat 05/03/24 12:30 CT angio chest PE protocol Stat Heparin Sodium (Porcine) (Heparin 5,000 Unit/Ml Vial) 5,000 unit SUBCUT BID [facility] Last Admin: 05/03/24 17:33 Dose: 5,000 unit Documented By: LDV Hydromorphone HCl (Hydromorphone 0.5 Mg Inj) 1 mg IV Q2HR PRN PRN Reason: Pain, Severe (7-10) Vancomycin HCl (Vancomycin) 1,000 mg in 200 mls @ 200 mls/hr IV Q8H THAI Dextrose/Sodium Chloride (Dextrose 5%-0.9% Ns) 1,000 mls @ 100 mls/hr IV CONT THAI Last Admin: 05/03/24 16:03 Dose: 100 mls/hr Documented By: TLS Cefepime HCl 2 gm/ Sodium (Chloride) 100 mls @ 200 mls/hr IV Q12H [facility] Naloxone HCl (Naloxone 0.4 Mg/Ml Vial) 0.2 mg IV Q2MIN PRN PRN Reason: Opiate Reversal Ondansetron HCl (Ondansetron 4 Mg Odt) 4 mg SL NOW PRN PRN Reason: Nausea And Vomiting Ondansetron HCl (Ondansetron 4 Mg/2 Ml Inj) 4 mg IV Q8HR PRN PRN Reason: Nausea And Vomiting Vancomycin HCl (Vancomycin Trough) 1 request MISC 1330 ONE Stop: 05/04/24 13:31 Vancomycin HCl (Vancomycin Peak) 1 request MISC 1600 ONE Stop: 05/04/24 16:01 Discontinued Medications Hydromorphone HCl (Hydromorphone 0.5 Mg Inj) 0.5 mg IV Q15MIN PRN PRN Reason: Pain, Last Admin: 05/03/24 13:52 Dose: 0.5 mg Documented By: Admin: 05/03/24 13:17 Dose: 0.5 mg Documented By: Admin: 05/03/24 12:53 Dose: 0.5 mg Documented By: RLS Hydromorphone HCl (Hydromorphone 0.5 Mg Inj) 1 mg IV Q15MIN PRN PRN Reason: Pain, Last Admin: 05/03/24 17:32 Dose: 1 mg Documented By: Admin: 05/03/24 16:02 Dose: 1 mg Documented By: Admin: 05/03/24 15:08 Dose: 1 mg Documented By: Admin: 05/03/24 14:19 Dose: 1 mg Documented By: AMV Sodium Chloride (Normal Saline 0.9%) 1,000 mls @ 1,000 mls/hr IV BOLUS ONE Stop: 05/03/24 12:22 Last Infusion: 05/03/24 13:15 Dose: Infused Documented By: Admin: 05/03/24 12:16 Dose: 1,000 mls/hr Documented By: RLS Sodium Chloride (Normal Saline 0.9%) 1,000 mls @ 1,000 mls/hr IV BOLUS ONE Stop: 05/03/24 12:33 Last Admin: 05/03/24 12:18 Dose: Not Given Documented By: RLS Sodium Chloride (Normal Saline 0.9%) 1,000 mls @ 1,000 mls/hr IV BOLUS ONE Stop: 05/03/24 12:34 Last Infusion: 05/03/24 14:38 Dose: Infused Documented By: Admin: 05/03/24 13:15 Dose: 1,000 mls/hr Documented By: RLS Sodium Chloride (Normal Saline 0.9%) 1,000 mls @ 150 mls/hr IV CONT THAI Last Infusion: 05/03/24 15:15 Dose: 0 mls/hr Documented By: Admin: 05/03/24 14:48 Dose: 150 mls/hr Documented By: RLS Cefepime HCl 2 gm/ Sodium (Chloride) 100 mls @ 200 mls/hr IV NOW ONE Stop: 05/03/24 11:36 Last Infusion: 05/03/24 13:30 Dose: Infused Documented By: Admin: 05/03/24 12:54 Dose: 200 mls/hr Documented By: GURMEET Vancomycin HCl (Vancomycin) 1,250 mg in 250 mls @ 250 mls/hr IV NOW ONE Stop: 05/03/24 14:42 Last Infusion: 05/03/24 15:08 Dose: Infused Documented By: Admin: 05/03/24 13:52 Dose: 250 mls/hr Documented By: CHASITY Ondansetron HCl (Ondansetron 4 Mg/2 Ml Inj) 4 mg IV NOW PRN PRN Reason: Nausea And Vomiting Last Admin: 05/03/24 12:53 Dose: 4 mg Documented By: GURMEET Vancomycin HCl (Vancomycin Per Pharmacy) 1 request MISC NOW ONE Stop: 05/03/24 11:37 Last Admin: 05/03/24 13:52 Dose: Not Given Documented By: CHASITY Vital Signs Vital signs: Vital Signs - 8 hr 05/03/24 11:17 05/03/24 11:27 05/03/24 11:28 Temperature 98.9 F Pulse Rate 113 H 110 H Respiratory Rate 28 H Blood Pressure 105/70 117/74 Pulse Oximetry 93 Oxygen Delivery Method Room Air 05/03/24 11:28 05/03/24 11:30 05/03/24 11:30 Temperature Pulse Rate 109 H 108 H Respiratory Rate 20 16 Blood Pressure 111/60 Pulse Oximetry 94 95 Oxygen Delivery Method 05/03/24 12:00 05/03/24 12:00 05/03/24 12:30 Temperature Pulse Rate 104 H 100 H Respiratory Rate 17 22 Blood Pressure 127/65 Pulse Oximetry 94 92 Oxygen Delivery Method 05/03/24 12:30 05/03/24 13:00 05/03/24 13:30 Temperature Pulse Rate 98 H 97 H Respiratory Rate 17 19 Blood Pressure 112/65 Pulse Oximetry 89 L 96 Oxygen Delivery Method Nasal Cannula 05/03/24 14:00 Temperature Pulse Rate 97 H Respiratory Rate 19 Blood Pressure Pulse Oximetry 97 Oxygen Delivery Method Medical Decision Making Lab Data 05/03/24 11:54 05/03/24 11:54 Labs: Lab Results 05/03/24 05/03/24 Range/Units 11:54 14:10 WBC 20.5 H (4.5-11.0) X10^3/uL RBC 3.96 L (4.5-5.9) X10^6/uL Hgb 10.6 L (13.5-17.5) g/dL Hct 32.5 L (41-53) % MCV 82.2 (80-100) fL MCH 26.9 (26-34) PG MCHC 32.7 (30-36) % RDW 17.8 H (11.6-14.8) % Plt Count 271 (150-400) X10^3/uL Neut % (Auto) 95.6 H (50-75) % Lymph % (Auto) 1.0 L (25-40) % [place] % (Auto) 2.9 L (3-14) % Eos % (Auto) 0.1 L (2-4) % Baso % (Auto) 0.4 (0-2) % Neut # (Auto) 37338 H (8211-6480) /uL Lymph # (Auto) 200 L (4490-5416) /uL [place] # (Auto) 600 (0-900) /uL Eos # (Auto) 0 (0-450) /uL Baso # (Auto) 100 (0-100) /uL PT 12.5 (9.4-12.5) SECONDS INR 1.1 (0.9-1.3) APTT 55 H (25.1-36.5) SECONDS Sodium 129 L (137-145) mmol/L Potassium 4.1 (3.4-5.1) mmol/L Chloride 95 L (98-107) mmol/L Carbon Dioxide 27 (22-32) mmol/L BUN 14 (9-20) mg/dL Creatinine 0.64 L (0.66-1.25) mg/dL Estimated GFR > 60 (>60) mL/min BUN/Creatinine Ratio 21.9 (6-22) Glucose 152 H (80-110) mg/dL Lactate 2.3 H 1.1 (0.7-2.1) mmol/L Calcium 8.8 (8.4-10.2) mg/dL Total Bilirubin 0.5 (0.2-1.3) mg/dL AST 18 (17-59) IU/L ALT 16 (<50) IU/L Alkaline Phosphatase 119 (38-126) U/L Total Protein 6.0 L (6.3-8.2) g/dL Albumin 3.0 L (3.5-5.0) g/dL Globulin 3.0 (1.7-4.1) g/dL Albumin/Globulin Ratio 1.0 (1.0-2.8) Lipase < 10 L (23-300) U/L Procalcitonin 0.282 (<0.5) ng/mL Imaging Data CT scan - chest: Radiologist's Impression: PROCEDURE: CT ANGIO CHEST PE PROTOCOL INDICATIONS: dyspnea, tachycardia TECHNIQUE: After the administration of intravenous contrast, 2 mm thick sections acquired from the pulmonary apices to the posterior costophrenic angles. 3-dimensional maximum intensity projection (MIP) coronal and sagittal reformats were then acquired through the thorax. For radiation dose reduction, the following was used: automated exposure control, adjustment of mA and/or kV according to patient size. COMPARISON: [facility], CT, CT CHEST WITHOUT CONTRAST, 04/12/2024, 16:48. FINDINGS: Image quality: Diagnostic. Pulmonary arteries: Pulmonary arteries are normal in size, and demonstrate no intraluminal filling defects to suggest central pulmonary embolism. Lower Neck: No enlarged lymph nodes. Thyroid: No thyroid nodules which require sonographic follow up, per consensus guidelines. Axillae: No enlarged lymph nodes. Chest Wall: Unremarkable. Bones: Unremarkable. Lungs and Pleura: There is persistent right greater than left bilateral pleural effusion. Moderate to severe emphysema is again seen. Patchy mixed interstitial and available opacities are again noted scattered in right middle and lower lobes not significantly changed in size and appearance compared to previous study. No pneumothorax. Central and peripheral airway is patent. Bronchiectasis in bilateral lower lung [place] are seen. Heart: Heart size is enlarged. Small amount of pericardial effusion is seen. Thoracic Vessels: No aortic aneurysm. Mediastinum and Shayna: Prominent mediastinal lymph nodes are noted measures up to 1.2 cm in short axis diameter in right paratracheal space. Esophagus: No wall thickening small hiatal hernia. Upper Abdomen: Visualized upper abdomen solid organs and bowel loops appear normal. IMPRESSION: 1. No pulmonary emboli. No thoracic aortic aneurysm. 2. Persistent mixed interstitial and alveolar opacities in right lung and to lesser extent left lower lung field not significantly changed from previous study. Persistent right greater than left bilateral pleural effusion and right-sided pleural thickening. No pneumothorax. Severe emphysema. 3. Mildly right mediastinal lymph nodes which may represent reactive inflammatory nodes. Cardiomegaly, small pericardial effusion. Dictated by: Konstantin Harrison M.D. on 05/03/2024 at 12:54 MDM Narrative Medical decision making narrative: CC: Possible fever, increased cough Complicating co-morbidities: Esophageal cancer, undergoing chemotherapy, post esophagectomy, J-tube, previous aspiration pneumonia admitted to [facility] for similar 20 days ago Data collected from: patient Social determinants of health that may influence the patients condition: Multiple indications throughout the chart of DNR status Medical records reviewed: CT scan of the chest done on April 13 without contrast with concerns for aspiration pneumonia at [facility] is reviewed. Mild increased size of right pleural effusion and right pleural thickening. 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 Noted to have recently finished antibiotics for an aspiration pneumonia and still feeling somewhat short of breath Discharge summary from [facility] admission April 09 through April 15 for aspiration pneumonia Differential considered: Recurrent pneumonia, aspiration pneumonia, sepsis, metastatic cancer, pneumothorax, pulmonary embolism Exam documented above, pertinent findings include: Cachectic gentleman, coughing, rhonchi in both bases right greater than left minimal wheeze Lab Test results independently reviewed as above. Pertinent findings: CBC: Leukocytosis of 20.5. Slight decrease in H&H 10.6 and 32.5, neutrophils 96%, platelets are appropriate Chemistries: Hyponatremia, appropriate renal function, lactic minimally elevated at 2.3. Low-protein lipase is low Procalcitonin is not elevated Independently reviewed EKG: Sinus rhythm at a rate of 106. No acute ischemic changes Imaging studies independently reviewed: Chest x-ray shows severe bullous disease and persistent bilateral lower lobe infiltrates. There is a question of pneumothorax versus large bulla in the right upper lobe. Based on his clinical exam this is a large bulla and not a pneumothorax Given the possibility of pulmonary embolism, CT angiogram is ordered. We will re-evaluate lung [place] that time CT scan does not show a pneumothorax those are large apical blebs. He does have bibasilar infiltrates worsening again most consistent with pneumonia in the current clinical setting. Small pericardial effusion no pulmonary embolism Treatments: Patient is started on 2 L of fluid, Zofran, cefepime and vancomycin initiated for antibiotics. Discussion: On re-evaluation patient is definitely feeling better after the fluid bolus. Blood pressure is stable. Given the significant leukocytosis in the findings on chest x-ray and CT scan with recent hospitalizations I suspect this is simply a recurrent aspiration pneumonia. He is on cefepime and vancomycin. Patient would much prefer to be discharged home but we discussed the risks of sepsis and he agrees that hospitalization is certainly the safest option. I did warn him that the likely recommendation will be to not have his chemotherapy this Thursday. Questions were answered and he is safe for transfer to the floor. We will talk to the hospitalist. At this point I do not believe he needs PCC or CCU care and I do not think that he is going to progress to significant respiratory distress in the next 24 hours. Additional Information: Severe Sepsis Criteria [ x] bacterial source of infection suspected and documented [x ] 2 SIRS Criteria met [ x ] HR >90 [ x ] RR >20 [ x ] fever or hypothermia [ x ] leukocytosis/leukopenia/bandemia [ ] Evidence of at least 1 organ system dysfunction [x ] Lactate > 2 [ ] BP < 90 or MAP <65, >40mm decrease from normal baseline [ ] Creat > 2.0 [ ] T. Bili > 2.0 [ ] platelet count < 100k [ ] altered mental status [ ] mechanical ventilation [ ] provider documentation of severe sepsis Severe Sepsis Determination. the patient has been screened and [ ] DOES meet criteria for severe sepsis [ x] DOES NOT meet criteria for severe sepsis Goal directed treatment Within 3 hours [ x] blood cx drawn prior to abx [ x] broad spectrum abx started [ x] lactic acid level checked [ ] lactic redrawn within 6 hours if >2.0 Septic Shock Criteria [ ] lactic > 4 at any time [ ] SBP ,90 or MAP , 65 [ ] documentation of septic shock Time Septic Shock diagnosed: [ ] Septic Shock Determination. the patient has been screened and [ ] DOES meet criteria for septic shock [ x ] DOES NOT meet criteria for septic shock Goal directed therapy within 3 hours of septic shock or initial hypotension [ ] 30ml/kg fluid [ ] ABW used [ ] IBW (33.6) used due to BMI > 30 [ ] patient or advocate declining fluid administration after shared decision making conversation Clinical reason for NOT initiating fluid bolus: Discharge Plan Departure Patient Disposition: Admitted As Inpatient Clinical Impression: Bacterial pneumonia, Bullous emphysema Esophageal cancer Qualifiers: Malignant neoplasm of esophagus location: unspecified location Qualified Code(s): C15.9 - Malignant neoplasm of esophagus, unspecified Admit Date/Time: 05/03/24 14:22 Admit Provider: Ghassan Lal
[2024-05-03 12:07] LABS: Add Manual Diff / Slide Review NO; Basophils Absolute Auto 100 /uL (0-100); Basophils Percent Auto 0.4 % (0-2); Eosinophils Absolute Auto 0 /uL (0-450); Eosinophils Percent Auto 0.1 % (2-4); Hematocrit 32.5 % (41-53); Hemoglobin 10.6 g/dL (13.5-17.5); Lymphocytes Absolute Auto 200 /uL (1100-4500); Mean Corpuscular HGB Conc 32.7 % (30-36); Mean Corpuscular Hemoglobin 26.9 PG (26-34); Mean Corpuscular Volume 82.2 fL (80-100); Monocytes Absolute Auto 600 /uL (0-900); Monocytes Percent Auto 2.9 % (3-14); Neutrophils Absolute Auto 19600 /uL (1500-7000); Neutrophils Percent Auto 95.6 % (50-75); Platelet Count 271 X10^3/uL (150-400); Red Blood Cell Count 3.96 X10^6/uL (4.5-5.9); Red Cell Distribution Width 17.8 % (11.6-14.8); White Blood Cell Count 20.5 X10^3/uL (4.5-11.0)
[2024-05-03 12:13] LABS: INR 1.1 (0.9-1.3); Prothrombin Time 12.5 SECONDS (9.4-12.5)
[2024-05-03 12:15] LABS: PTT Partial Thromboplastin Tim 55 SECONDS (25.1-36.5)
[2024-05-03] MEDS: SODIUM CHLORIDE 0.9% 1,000 ML 1000 ML IV ×2 (12:16→13:15)
[2024-05-03 12:17] LABS: Lactate (Lactic Acid) 2.3 mmol/L (0.7-2.1)
[2024-05-03 12:18] LABS: Alanine Aminotransferase 16 IU/L (<50); Alkaline Phosphatase 119 U/L (38-126); Aspartate Aminotransferase 18 IU/L (17-59); BUN Creatinine Ratio 21.9 (6-22); Bilirubin Total 0.5 mg/dL (0.2-1.3); Blood Urea Nitrogen 14 mg/dL (9-20); Calcium 8.8 mg/dL (8.4-10.2); Carbon Dioxide 27 mmol/L (22-32); Chloride 95 mmol/L (98-107); Estimated Glomerular Filt Rate > 60 mL/min (>60); Glucose 152 mg/dL (80-110); HEMOLYSIS < 15 (0-50); Potassium 4.1 mmol/L (3.4-5.1); Sodium 129 mmol/L (137-145)
[2024-05-03 12:30] LABS: Lipase < 10 U/L (23-300)
--- NOTE | 2024-05-03 12:30 | DI.CT.S_ITS ---
PROCEDURE: CT ANGIO CHEST PE PROTOCOL INDICATIONS: dyspnea, tachycardia TECHNIQUE: After the administration of intravenous contrast, 2 mm thick sections acquired from the pulmonary apices to the posterior costophrenic angles. 3-dimensional maximum intensity projection (MIP) coronal and sagittal reformats were then acquired through the thorax. For radiation dose reduction, the following was used: automated exposure control, adjustment of mA and/or kV according to patient size. COMPARISON: [facility], CT, CT CHEST WITHOUT CONTRAST, 04/12/2024, 16:48. FINDINGS: Image quality: Diagnostic. Pulmonary arteries: Pulmonary arteries are normal in size, and demonstrate no intraluminal filling defects to suggest central pulmonary embolism. Lower Neck: No enlarged lymph nodes. Thyroid: No thyroid nodules which require sonographic follow up, per consensus guidelines. Axillae: No enlarged lymph nodes. Chest Wall: Unremarkable. Bones: Unremarkable. Lungs and Pleura: There is persistent right greater than left bilateral pleural effusion. Moderate to severe emphysema is again seen. Patchy mixed interstitial and available opacities are again noted scattered in right middle and lower lobes not significantly changed in size and appearance compared to previous study. No pneumothorax. Central and peripheral airway is patent. Bronchiectasis in bilateral lower lung [place] are seen. Heart: Heart size is enlarged. Small amount of pericardial effusion is seen. Thoracic Vessels: No aortic aneurysm. Mediastinum and Shayna: Prominent mediastinal lymph nodes are noted measures up to 1.2 cm in short axis diameter in right paratracheal space. Esophagus: No wall thickening small hiatal hernia. Upper Abdomen: Visualized upper abdomen solid organs and bowel loops appear normal. IMPRESSION: 1. No pulmonary emboli. No thoracic aortic aneurysm. 2. Persistent mixed interstitial and alveolar opacities in right lung and to lesser extent left lower lung field not significantly changed from previous study. Persistent right greater than left bilateral pleural effusion and right-sided pleural thickening. No pneumothorax. Severe emphysema. 3. Mildly right mediastinal lymph nodes which may represent reactive inflammatory nodes. Cardiomegaly, small pericardial effusion. Dictated by: Konstantin Harrison M.D. on 05/03/2024 at 12:54 Approved by: Konstantin Harrison M.D. on 05/03/2024 at 13:09
[2024-05-03 12:34] LABS: Procalcitonin 0.282 ng/mL (<0.5)
[2024-05-03] MEDS: HYDROMORPHONE 0.5 MG INJ IV ×3 (12:53→13:52)
[2024-05-03] MEDS: ONDANSETRON 4 MG/2 ML INJ IV (12:53)
[2024-05-03] MEDS: CEFEPIME 2 GM in SODIUM CHLORIDE 0.9% 100 ML IV (12:54)
[2024-05-03 13:35] LABS: Reflexed Lactate in 2 Hours Y
[2024-05-03] MEDS: VANCOMYCIN 1,250 MG/250 ML PIGGYBACK 250 MG IV (13:52)
[2024-05-03] MEDS: HYDROMORPHONE 0.5 MG INJ 1 MG IV ×7 (14:19→23:20)
[2024-05-03 14:26] LABS: Lactate 2HR (Lactic Acid Rflx) 1.1 mmol/L (0.7-2.1)
--- NOTE | 2024-05-03 14:46 | P.HP_ITS ---
History of Present Illness History of Present Illness Date Patient Seen: 05/03/24 Chief complaint: fever, SOB, nausea vomitting Narrative: From ED doctor: 68-year-old gentleman with a history of recurrent distal esophageal cancer, aspiration pneumonia, J-tube in place, bipolar disorder, seizure disorder, cancer-related pain and emphysema presents complaining of increasing cough general malaise fever noted at home, vomiting much of the evening and feeling poorly. His cough is more productive than it has been over the last couple of days. Of note he was admitted to the hospital for a right lower lobe aspiration pneumonia April 09 through April 15. He is continuing to use her feeding tube, minimal oral intake but he is able to vomit. Additional information: He has been ill for a couple of days with increased shortness a breath, low-grade fevers, and a cough. He has extensive pain through his body and uses oxycodone elix which she was happy with. He was scheduled for chemotherapy on Thursday at [facility]. He does not use home oxygen but was hypoxemic care. He still eats soft foods and liquids without choking or regurgitation. He has tube feeds through his PEG, using 5-6 bottles of his enteral feeds a day. These are usually daytime. He denies any difficulties with bowel movements or urination. No abdominal pain. [facility] Medical History Aspiration pneumonia GARCIA (dyspnea on exertion) Severe headache Cancer associated pain Weight loss, non-intentional Urinary tract infection symptoms Class 1 obesity (06/23/13) Gastrointestinal tube in situ Insomnia Epigastric pain Hx of esophageal spasm Upper extremity somatic dysfunction Chronic pain of right thumb Left ankle swelling Thoracic region somatic dysfunction Cervical somatic dysfunction Cranial somatic dysfunction Unilateral occipital headache Whiplash injury to neck PTSD (post-traumatic stress disorder) Limb swelling Amonate use COPD (chronic obstructive pulmonary disease) Lumbar spine pain Right arm fracture Chronic back pain Vision abnormalities Hearing loss (08/10/94) History of alcohol abuse Substance abuse Bipolar disorder Anxiety Spinal stenosis Cervical spine disease Chronic cluster headache (06/23/13) Surgical History Anesthesia History of surgery on arm History of facial surgery History of testicular surgery History of spinal fusion History of spinal fusion History of tonsillectomy History of knee replacement (05/29/14) Family History Mother Suicide Asthma Bipolar disorder Depression Sister Age: 73 Healthy adult Father Emphysema of lung Sister Crohn's disease Substance abuse Social History household members: none other: Pt lives with a friend who is a disabled [facility] vet who needs assistance, Smoking Status: Former smoker alcohol intake: never substance use type: marijuana Meds Home Medications and Allergies Home Medications Medication Instructions Recorded Confirmed Type Home Oxygen #1 ea 02/17/23 04/19/24 Rx syringe with needle 3 mL 25 x 5/8 #100 ea 03/18/23 04/19/24 Rx (BD Luer-Laure Syringe) albuterol sulfate 90 mcg/actuation 2 inh inhalation Q4-6H PRN 02/05/24 05/03/24 Rx aerosol inhaler shortness of breath or wheezing #6.7 grams ondansetron 8 mg disintegrating 8 mg PO 3XD 03/15/24 05/03/24 History tablet Disabled Parking Permit #1 ea 04/05/24 04/19/24 Rx oxycodone 5 mg/5 mL oral solution 10 mg (10 mL) PO Q4-6H PRN CANCER 04/26/24 05/03/24 Rx pain #1,000 mL amitriptyline 100 mg tablet 300 mg PO BEDTIME 05/03/24 05/03/24 History baclofen 10 mg tablet 30 mg PO BEDTIME 05/03/24 05/03/24 History duloxetine 30 mg capsule,delayed 60 mg PO BEDTIME 05/03/24 05/03/24 History release gabapentin 600 mg tablet 600 mg PO BEDTIME insomnia 05/03/24 05/03/24 History lamotrigine 100 mg tablet 100 mg PO BEDTIME 05/03/24 05/03/24 History quetiapine 50 mg tablet 150 mg PO BEDTIME 05/03/24 05/03/24 History Allergies Allergy/AdvReac Type Severity Reaction Status Date / Time mold Allergy Severe Cough Verified 05/03/24 11:17 Review of Systems Review of Systems Narrative: All else reviewed and otherwise unremarkable except as noted in the history and physical. Exam Vital Signs (past 8 hours): - 05/03/24 11:17 05/03/24 11:27 05/03/24 11:28 Temperature 98.9 F Pulse Rate 113 H 110 H Respiratory Rate 28 H Blood Pressure 105/70 117/74 Pulse Oximetry 93 Oxygen Delivery Method Room Air 05/03/24 11:28 05/03/24 11:30 05/03/24 11:30 Temperature Pulse Rate 109 H 108 H Respiratory Rate 20 16 Blood Pressure 111/60 Pulse Oximetry 94 95 Oxygen Delivery Method 05/03/24 12:00 05/03/24 12:00 05/03/24 12:30 Temperature Pulse Rate 104 H 100 H Respiratory Rate 17 22 Blood Pressure 127/65 Pulse Oximetry 94 92 Oxygen Delivery Method 05/03/24 12:30 05/03/24 13:00 Temperature Pulse Rate 98 H Respiratory Rate 17 Blood Pressure 112/65 Pulse Oximetry 89 L Oxygen Delivery Method Nasal Cannula Oxygen Delivery Method Nasal Cannula Narrative Exam Narrative: NAD, alert and oriented, fluent speech, calm. Cachectic. Normocephalic skull, EOMI, anicteric sclera, symmetric pupils. Oropharynx unremarkable, no droop. Neck supple, midline trachea, no adenopathy. Lungs clear, normal rate and effort. Heart regular, no murmur gallop or rub. Abdomen is soft, non distended and non tender. Extremities are free of edema. Skin is free of rash or lesions. Joints are not swollen or deformed. Judgment appears to be normal. Right chest port PEG tube Objective ECG Impression: Sinus tachycardia Imaging CT scan - chest: Radiologist's impression: 1. No pulmonary emboli. No thoracic aortic aneurysm. 2. Persistent mixed interstitial and alveolar opacities in right lung and to lesser extent left lower lung field not significantly changed from previous study. Persistent right greater than left bilateral pleural effusion and right-sided pleural thickening. No pneumothorax. Severe emphysema. 3. Mildly right mediastinal lymph nodes which may represent reactive inflammatory nodes. Cardiomegaly, small pericardial effusion. Labs 05/03/24 11:54 05/03/24 11:54 Labs: Laboratory Results - last 24 hr 05/03/24 05/03/24 11:54 14:10 WBC 20.5 H RBC 3.96 L Hgb 10.6 L Hct 32.5 L MCV 82.2 MCH 26.9 MCHC 32.7 RDW 17.8 H Plt Count 271 Neut % (Auto) 95.6 H Lymph % (Auto) 1.0 L Mesa % (Auto) 2.9 L Eos % (Auto) 0.1 L Baso % (Auto) 0.4 Neut # (Auto) 51854 H Lymph # (Auto) 200 L Mesa # (Auto) 600 Eos # (Auto) 0 Baso # (Auto) 100 PT 12.5 INR 1.1 APTT 55 H Sodium 129 L Potassium 4.1 Chloride 95 L Carbon Dioxide 27 BUN 14 Creatinine 0.64 L Estimated GFR > 60 BUN/Creatinine Ratio 21.9 Glucose 152 H Lactate 2.3 H 1.1 Calcium 8.8 Total Bilirubin 0.5 AST 18 ALT 16 Alkaline Phosphatase 119 Total Protein 6.0 L Albumin 3.0 L Globulin 3.0 Albumin/Globulin Ratio 1.0 Lipase < 10 L Procalcitonin 0.282 Assessment & Plan Assessment & Plan narrative: 1. Aspiration pneumonia, present on admission and active. 2. Esophageal cancer, present on admission and active. 3. Bipolar, present on admission and active. 4. Seizure disorder, present on admission and active. 5. COPD, present on admission and active. 6. Recurrent aspiration pneumonia. 7. Protein caloric malnutrition, present on admission and active. 8. Hypovolemic hyponatremia, present on admission and active. Plan: -IV antibiotics, cefepime and vancomycin. -follow up blood and sputum cultures. -continue enteral feeding support and nutrition consult. -wean oxygen as able. -IV fluids, saline for hypovolemic hyponatremia. -usual medications. He is DNR and DNI. This was discussed at time of admission. Inpatient status, anticipate 2 midnight need for hospital services. Time-Based Coding :: 35 min spent with patient and on the chart (including review of chart, obtaining history, exam, reviewing outside data, placing orders, documenting exam and treatment plan, and counseling patient) on 05/03. Quality MIPS - Admit I confirm the patient?s Advance Care Plan is present, Code status is documented, Surrogate decision maker is in patient?s record [If Yes, STOP here]: Yes MIPS - Meds 'Current medications' to include all prescriptions, [id number] products, herbals, cannabis/cannabidiol products, and vitamin/mineral/dietary (nutritional) supplements. I have utilized all available resources to obtain, update, or review the patient?s current medications. [If Yes, STOP here]: Yes
[2024-05-03] MEDS: SODIUM CHLORIDE 0.9% 1,000 ML 150 ML IV (14:48)
--- NOTE | 2024-05-03 15:05 | PC.NURSE ---
cleansed jtube site with hibiclens . old dressing removed . yellow brown drainage on old 2x2. new 2x2 placed. jtube site without redness.
[2024-05-03] MEDS: DEXTROSE 5%-0.9% NS 1,000 ML 100 ML IV (16:03)
[2024-05-03 16:29] LABS: Adenovirus Not Detected (Not Detect); B. parapertussis Not Detected (Not Detecte); Bordetella pertussis Not Detected (Not Detect); Chlamydophila pneumoniae Not Detected (Not Detect); Coronavirus 229E Not Detected (Not Detect); Coronavirus HKU1 Not Detected (Not Detect); Coronavirus NL 63 Not Detected (Not Detect); Coronavirus OC43 Not Detected (Not Detect); Human Metapneumovirus Not Detected (Not Detect); Human Rhinovirus/Enterovirus Not Detected (Not Detect); Influenza A Not Detected (Not Detect); Influenza B Not Detected (Not Detect); Mycoplasma pneumoniae Not Detected (Not Detect); Parainfluenza Virus 1 Not Detected (Not Detect); Parainfluenza Virus 2 Not Detected (Not Detect); Parainfluenza Virus 3 Not Detected (Not Detect); Parainfluenza Virus 4 Not Detected (Not Detect); Respiratory Syncytial Virus Not Detected (Not Detect); SARS- CoV-2 Not Detected (Not Detecte)
[2024-05-03] MEDS: HEPARIN 5,000 UNIT/ML VIAL 5000 UNIT SUBCUT (17:33)
[2024-05-03] MEDS: VANCOMYCIN 1,000 MG/200 ML PIGGYBACK 200 MG IV (21:12)
[2024-05-04] VITALS (8 sets, daily range): BP systolic 90–116; BP diastolic 50–70; PULSE 74–88; RESP 12–20; TEMP 35.9–36.9; O2SAT 87–97
[2024-05-04] MEDS: BACLOFEN 10 MG TABLET 30 MG PO (00:52)
[2024-05-04] MEDS: GABAPENTIN 600 MG TABLET PO (00:52)
[2024-05-04] MEDS: DULOXETINE 30 MG CAPSULE 60 MG PO ×2 (00:52→21:17)
[2024-05-04] MEDS: lamoTRIgine 100 MG TABLET PO (00:52)
[2024-05-04] MEDS: QUETIAPINE 25 MG TABLET 150 MG PO (00:52)
[2024-05-04] MEDS: HYDROMORPHONE 0.5 MG INJ 1 MG IV ×2 (01:30→04:02)
[2024-05-04] MEDS: CEFEPIME 2 GM in SODIUM CHLORIDE 0.9% 100 ML IV (01:43)
[2024-05-04] MEDS: DEXTROSE 5%-0.9% NS 1,000 ML 100 ML IV (02:04)
[2024-05-04 04:39] LABS: Add Manual Diff / Slide Review NO; Basophils Absolute Auto 0 /uL (0-100); Basophils Percent Auto 0.4 % (0-2); Eosinophils Absolute Auto 100 /uL (0-450); Eosinophils Percent Auto 0.7 % (2-4); Hematocrit 26.2 % (41-53); Hemoglobin 8.6 g/dL (13.5-17.5); Lymphocytes Absolute Auto 300 /uL (1100-4500); Lymphocytes Percent Auto 3.2 % (25-40); Mean Corpuscular HGB Conc 32.9 % (30-36); Mean Corpuscular Hemoglobin 27.1 PG (26-34); Mean Corpuscular Volume 82.4 fL (80-100); Monocytes Absolute Auto 700 /uL (0-900); Monocytes Percent Auto 6.4 % (3-14); Neutrophils Absolute Auto 9600 /uL (1500-7000); Neutrophils Percent Auto 89.3 % (50-75); Platelet Count 210 X10^3/uL (150-400); Red Blood Cell Count 3.18 X10^6/uL (4.5-5.9); Red Cell Distribution Width 17.4 % (11.6-14.8); White Blood Cell Count 10.7 X10^3/uL (4.5-11.0)
[2024-05-04 04:54] LABS: BUN Creatinine Ratio 24.1 (6-22); Blood Urea Nitrogen 13 mg/dL (9-20); Calcium 8.5 mg/dL (8.4-10.2); Carbon Dioxide 26 mmol/L (22-32); Chloride 102 mmol/L (98-107); Estimated Glomerular Filt Rate > 60 mL/min (>60); Glucose 113 mg/dL (80-110); HEMOLYSIS < 15 (0-50); Potassium 3.9 mmol/L (3.4-5.1); Sodium 130 mmol/L (137-145)
[2024-05-04] MEDS: VANCOMYCIN 1,000 MG/200 ML PIGGYBACK 200 MG IV (06:08)
--- NOTE | 2024-05-04 06:35 | PC.NURSE ---
NOC: Notified MD Bagley of H/H down from 10.6/32.5 -> 8.6/26.2. No new orders, will continue to monitor.
--- NOTE | 2024-05-04 08:08 | P.PN_ITS ---
Subjective Subjective Interval history: Summary: Admitted with recurrent aspiration pneumonia in context of esophageal cancer and J-tube. S: Exam Vital Signs (past 8 hours): - 05/04/24 04:00 Temperature 97.6 F Pulse Rate 74 Respiratory Rate 12 Blood Pressure 90/50 L Pulse Oximetry 94 Oxygen Flow Rate 2.5 Oxygen Delivery Method Nasal Cannula Oxygen Flow Rate 2.5 Narrative Exam Narrative: Cachectic, no distress. Lungs are clear, decreased sounds in the bases bilaterally. Heart is regular, no murmur. Abdomen is flat, and soft, J-tube. No leg edema. Objective Labs 05/04/24 04:17 05/04/24 04:17 Labs: Laboratory Results - last 24 hr 05/03/24 05/03/24 05/03/24 11:54 14:10 15:20 WBC 20.5 H RBC 3.96 L Hgb 10.6 L Hct 32.5 L MCV 82.2 MCH 26.9 MCHC 32.7 RDW 17.8 H Plt Count 271 Neut % (Auto) 95.6 H Lymph % (Auto) 1.0 L Isabella % (Auto) 2.9 L Eos % (Auto) 0.1 L Baso % (Auto) 0.4 Neut # (Auto) 49859 H Lymph # (Auto) 200 L Isabella # (Auto) 600 Eos # (Auto) 0 Baso # (Auto) 100 PT 12.5 INR 1.1 APTT 55 H Sodium 129 L Potassium 4.1 Chloride 95 L Carbon Dioxide 27 BUN 14 Creatinine 0.64 L Estimated GFR > 60 BUN/Creatinine Ratio 21.9 Glucose 152 H Lactate 2.3 H 1.1 Calcium 8.8 Total Bilirubin 0.5 AST 18 ALT 16 Alkaline Phosphatase 119 Total Protein 6.0 L Albumin 3.0 L Globulin 3.0 Albumin/Globulin Ratio 1.0 Lipase < 10 L Procalcitonin 0.282 Chlamy pneumoniae PCR Not detected Adenovirus (PCR) Not detected B. pertussis DNA (PCR) Not detected B.parapertussis DNA PCR Not detected Coronavirus OC43 (PCR) Not detected Coronavirus HKU1 (PCR) Not detected Coronavirus 229E (PCR) Not detected SARS-CoV-2 (PCR) Not detected Coronavirus NL63 (PCR) Not detected Human Metapneumovir PCR Not detected Influenza Type A (PCR) Not detected Influenza Type B (PCR) Not detected M. pneumoniae (PCR) Not detected Parainfluenza 1 (PCR) Not detected Parainfluenza 2 (PCR) Not detected Parainfluenza 3 (PCR) Not detected Parainfluenza 4 (PCR) Not detected RSV (PCR) Not detected Entero/Rhino (PCR) Not detected 05/04/24 04:17 WBC 10.7 RBC 3.18 L Hgb 8.6 L Hct 26.2 L MCV 82.4 MCH 27.1 MCHC 32.9 RDW 17.4 H Plt Count 210 Neut % (Auto) 89.3 H Lymph % (Auto) 3.2 L Isabella % (Auto) 6.4 Eos % (Auto) 0.7 L Baso % (Auto) 0.4 Neut # (Auto) 9600 H Lymph # (Auto) 300 L Isabella # (Auto) 700 Eos # (Auto) 100 Baso # (Auto) 0 PT INR APTT Sodium 130 L Potassium 3.9 Chloride 102 Carbon Dioxide 26 BUN 13 Creatinine 0.54 L Estimated GFR > 60 BUN/Creatinine Ratio 24.1 H Glucose 113 H Lactate Calcium 8.5 Total Bilirubin AST ALT Alkaline Phosphatase Total Protein Albumin Globulin Albumin/Globulin Ratio Lipase Procalcitonin Chlamy pneumoniae PCR Adenovirus (PCR) B. pertussis DNA (PCR) B.parapertussis DNA PCR Coronavirus OC43 (PCR) Coronavirus HKU1 (PCR) Coronavirus 229E (PCR) SARS-CoV-2 (PCR) Coronavirus NL63 (PCR) Human Metapneumovir PCR Influenza Type A (PCR) Influenza Type B (PCR) M. pneumoniae (PCR) Parainfluenza 1 (PCR) Parainfluenza 2 (PCR) Parainfluenza 3 (PCR) Parainfluenza 4 (PCR) RSV (PCR) Entero/Rhino (PCR) [facility] Medical History Aspiration pneumonia GARCIA (dyspnea on exertion) Severe headache Cancer associated pain Weight loss, non-intentional Urinary tract infection symptoms Class 1 obesity (06/23/13) Gastrointestinal tube in situ Insomnia Epigastric pain Hx of esophageal spasm Upper extremity somatic dysfunction Chronic pain of right thumb Left ankle swelling Thoracic region somatic dysfunction Cervical somatic dysfunction Cranial somatic dysfunction Unilateral occipital headache Whiplash injury to neck PTSD (post-traumatic stress disorder) Limb swelling Arnold use COPD (chronic obstructive pulmonary disease) Lumbar spine pain Right arm fracture Chronic back pain Vision abnormalities Hearing loss (08/10/94) History of alcohol abuse Substance abuse Bipolar disorder Anxiety Spinal stenosis Cervical spine disease Chronic cluster headache (06/23/13) Surgical History Anesthesia History of surgery on arm History of facial surgery History of testicular surgery History of spinal fusion History of spinal fusion History of tonsillectomy History of knee replacement (05/29/14) Family History Mother Suicide Asthma Bipolar disorder Depression Sister Age: 73 Healthy adult Father Emphysema of lung Sister Crohn's disease Substance abuse Social History household members: none other: Pt lives with a friend who is a disabled [facility] vet who needs assistance, Smoking Status: Former smoker alcohol intake: never substance use type: marijuana Assessment & Plan Assessment & Plan narrative: 1. Aspiration pneumonia, present on admission and active. 2. Esophageal cancer, present on admission and active. 3. Bipolar, present on admission and active. 4. Seizure disorder, present on admission and active. 5. COPD, present on admission and active. 6. Recurrent aspiration pneumonia. 7. Protein caloric malnutrition, present on admission and active. 8. Hypovolemic hyponatremia, present on admission and active. Plan: -IV antibiotics, change to Unasyn. -follow up blood and sputum cultures. -continue enteral feeding support and nutrition consult. -wean oxygen as able. -IV fluids, saline for hypovolemic hyponatremia. -usual medications. FLORIAN: 05/05 if improved breathing. He is DNR and DNI. This was discussed at time of admission. Inpatient status, anticipate 2 midnight need for hospital services. Time-Based Coding :: [TOTAL MINUTES] spent with patient and on the chart (including review of chart, obtaining history, exam, reviewing outside data, placing orders, documenting exam and treatment plan, and counseling patient) on [DATE]. Quality VTE Deep Vein Thrombosis/Pulmonary Embolism Present on Admission: No
[2024-05-04] MEDS: HYDROMORPHONE 1 MG INJ IV ×7 (08:25→22:13)
[2024-05-04] MEDS: HEPARIN 5,000 UNIT/ML VIAL 5000 UNIT SUBCUT ×2 (08:26→21:15)
[2024-05-04] MEDS: AMPICILLIN/SULBACTAM 3 GM 3 GM in SODIUM CHLORIDE 0.9% 100 ML IV ×2 (11:15→16:18)
--- NOTE | 2024-05-04 11:56 | DIET.CONS ---
Dietary Consultation Note Admission Date: 05/03/2024 14:22 Assessment: 68 y M admitted for fever, SOB, N/V. Hx of distal esophageal cancer, aspiration pneumonia, J-tube in place since Sep 2023. [facility] manages TF outpatient. Called RD there to obtain home routine. Does Nutren 2.0 105 mL over 12 hours per pt's pump providing 2500 kcals and 105 g protein and [address] reports weight from 04/26/24 was 63 kg. Met w/ pt at bedside. Reports last completing TF the day before yesterday (05/02). Reports 1 incident of vomiting in evening. Did not do feeds yesterday d/t feeling ill. Notes it possibly may have been related to orally eating more food than usual that day. Diet recall varies, but lately has been having serving of canned vegetable soup daily. Notes he does do Ensure sometimes, but doesn't like the taste. Nutrition focused physical exam performed- -Severe loss temples, deltoid, trapezius, pectoralis, moderate loss interosseous -Moderate to severe loss buccal and orbital fat pads Ht: 182.88 cm Wt: 64.5 kg BMI: 19.0 UBW: 92.533 kg on 05/05/23 (-30% loss in 1 yr, severe); 75.466 kg on 02/05/24 (-14.5% loss in 3 months, severe) Last BM: 05/02/24 (05/03/24 14:25) MNA: 5 Vish Score: 19 Diet: 05/03/24 14:42 NPO Diet Diet Modifications: NPO Type: Strict 05/04/24 Lunch General (Regular) Diet Diet Modifications: Food Texture: Level 7 - Regular Liquid Consistency: Level 0 - Thin Tube Feeding Diet Diet Modifications: TF Supplement type: Glucerna 1.5 frankie TF mode of delivery: Continuous Starting flow rate mL/hr: 105 Flow rate goal mL/hr: 105 Titration Schedule to reach Goal Rate: Continuous intermittent feeds over 12h w/ pts pump Max total daily volume in mL: 1,260 Free fluid: 60 Free Water Frequency: Q6H Comment: Flush 60 mL before and after intermittent feeds Nutrition Percent Meal Consumed pt is strict NPO 05/03/24 18:00 Labs: RBC 3.18 X10^6/uL (4.5-5.9) L 05/04/24 04:17 Hgb 8.6 g/dL (13.5-17.5) L 05/04/24 04:17 Hct 26.2 % (41-53) L 05/04/24 04:17 Creatinine 0.54 mg/dL (0.66-1.25) L 05/04/24 04:17 Lactate 1.1 mmol/L (0.7-2.1) 05/03/24 14:10 Nutrition Diagnosis: Severe chronic protein calorie malnutrition r/t increased nutrient needs (energy-protein) and difficulty swallowing aeb 30% weight loss in 1 yr, severe, severe muscle mass loss (temporalis, deltoid, trapezius, pectoralis), moderate to severe subcutaneous fat loss (buccal and orbital fat pads), BMI underweight for age (19), esophageal cancer and on chemotherapy Interventions: 1. Matching kcals and protein needs he receives at home with available formulary. Ordered continuous intermittent enteral nutrition over 12 hours of Glucerna 1.5 at 105 mL/hr to provide 1890 kcals (75% of EER) and 104 g protein (99% protein needs), 168 CHO, and 956 mL free water. Flush 60 mL Q6H. Feed plus flush provides 1196 mL fluids. Fluids needs are 1935 (30 mL/kg). Pt drinking fluids orally to meet needs. 2. Soft foods orally per pt's tolerance EER: 2500 kcals, 104 g protein (per RD [facility]) Monitoring/Evaluations: TF rate, tolerance, labs, oral po intakes and fluid intakes Electronically Signed by: Tigist Clayton 05/04/24 11:56 Clinical Dietitian [address] [address]
[2024-05-04] MEDS: OXYCODONE 5 MG/5 ML ORAL SOLUTION 10 MG TUBE (12:03)
--- NOTE | 2024-05-04 14:34 | CM.DANOTE ---
Addendum entered by MERNA Stewart 05/04/24 16:15: Per Celsa WHEATLEY, scheduled him for f/u with PCP Dr. Chowdhury 05/12 at 1030. Unable to meet with pt to share this information, pt in a lot of pain and nursing staff working to help manage it. SL Addendum entered by Mira Borrero, PRESSURE SUPERVISOR 05/04/24 14:46: Per Bailee at [facility], they are currently working with him for RN/OT/PT and will need new f2f and order at [place]. PRESSURE SUPERVISOR partially completed f2f....CM team will follow if pt needs speech added to order as well? Original Note: DCP Assessment Note Pt is a 68yo M with a PMH of esophageal cancer that uses a J-tube at baseline(feeds managed through [facility]) is here with aspiration pnemonia. PCP Reji Chowdhury Payer [employer] Medicare and Medicaid PRESSURE SUPERVISOR reviewed EMR. Per hospitalist in morning rounds, plan is to continue IV abx for another day, wean oxygen, and anticipate dc tomorrow 05/05 if able to wean off oxygen. Per RN, no obvious CM needs at this time. PRESSURE SUPERVISOR met with pt in room. Lives at [facility]. They assist with housekeeping but other than that mostly indep. Drives. Denies any DCP/CM needs at this time. reports he has a friend that can take him home. PRESSURE SUPERVISOR messaged TCM team about f/u with Dr. Chowdhury. P: Anticipate home when off oxygen, tomorrow vs next day. Transport with friend. No identified barriers to safe dc home at this time. CM team will continue to follow as needed MERNA Stewart Discharge Planning/Care Management CM Discharge Assessment Start: 05/04/24 14:33 Freq: Status: Active Protocol: Document 05/04/24 14:33 (Rec: 05/04/24 14:34 [id number]) Discharge Planning Assessment Assigned Lumber Scaler MERNA Tran DPOA/Assigned Designee Name sister Hensley Contact Information [phone] Advance Directives? Yes: dpoa, healtcare directive Advance Directives on File Yes History Provided By Patient Prior Living Arrangements Snf Facility Household Members none Type of transporation used prior to Drives own vehicle admit Facility Name Admitted From: [address] Independent with ADL's Yes Is patient alert and oriented? Yes Needs Assistance With Meal Prep,Home Chores / Shopping Comment [facility] for tube feeds Discharge Plan Home Referrals Initiated None needed Whiteboard Updated in Patient Room with Yes name and ext. # of Lumber Scaler Review Status In Process Please Provide Date Initial DC 05/04/24 Assessment Was Performed Next Review Type Continued Stay Review
[2024-05-04] MEDS: fentaNYL 25 MCG/PATCH TOP (15:06)
[2024-05-04] MEDS: GABAPENTIN 300 MG CAPSULE 600 MG TUBE ×2 (15:09→21:17)
--- NOTE | 2024-05-04 16:04 | PC.NURSE ---
Pt has been struggling with pain control all day today, pain not falling below an 8.5 using all pain meds available. After discussion between this nurse, pt and physician, it was decided to try a fentanyl patch. Patch placed as seen in the MAR but removed about 45min later as pt began to feel hot and sweaty and unwell. Physician and pharmacy informed. Fentanyl patch disposed of properly.
[2024-05-04] MEDS: ONDANSETRON 4 MG ODT 8 MG PO (16:18)
[2024-05-04] MEDS: OXYCODONE 5 MG/5 ML ORAL SOLUTION 15 MG TUBE (21:15)
[2024-05-04] MEDS: BACLOFEN 10 MG TABLET 30 MG TUBE (21:16)
[2024-05-04] MEDS: QUETIAPINE 25 MG TABLET 150 MG TUBE (21:16)
[2024-05-04] MEDS: lamoTRIgine 100 MG TABLET TUBE (21:17)
[2024-05-04] MEDS: AMITRIPTYLINE 25 MG TABLET 175 MG TUBE (21:18)
[2024-05-04] MEDS: AMITRIPTYLINE 10 MG TABLET 45 MG TUBE (21:19)
[2024-05-04] MEDS: AMITRIPTYLINE 10 MG TABLET 80 MG TUBE (21:19)
[2024-05-04] MEDS: ALBUTEROL 2.5 MG/3 ML NEB (ADULT) INH (22:19)
[2024-05-05] VITALS: BP 102/64; PULSE 88; RESP 12; TEMP 37; O2SAT 95
[2024-05-05] MEDS: HYDROMORPHONE 1 MG INJ IV ×3 (02:00→07:13)
[2024-05-05] MEDS: AMPICILLIN/SULBACTAM 3 GM 3 GM in SODIUM CHLORIDE 0.9% 100 ML IV ×3 (03:11→11:01)
[2024-05-05 04:00] VITALS: BP 111/71; PULSE 90; RESP 12; TEMP 36.4; O2SAT 92
[2024-05-05 04:39] LABS: Add Manual Diff / Slide Review NO; Basophils Absolute Auto 0 /uL (0-100); Basophils Percent Auto 0.4 % (0-2); Eosinophils Absolute Auto 100 /uL (0-450); Eosinophils Percent Auto 1.4 % (2-4); Hemoglobin 9.2 g/dL (13.5-17.5); Lymphocytes Absolute Auto 200 /uL (1100-4500); Lymphocytes Percent Auto 2.3 % (25-40); Mean Corpuscular HGB Conc 32.8 % (30-36); Mean Corpuscular Hemoglobin 27.2 PG (26-34); Mean Corpuscular Volume 82.9 fL (80-100); Monocytes Absolute Auto 600 /uL (0-900); Monocytes Percent Auto 7.7 % (3-14); Neutrophils Absolute Auto 7100 /uL (1500-7000); Neutrophils Percent Auto 88.2 % (50-75); Platelet Count 215 X10^3/uL (150-400); Red Blood Cell Count 3.38 X10^6/uL (4.5-5.9); Red Cell Distribution Width 17.3 % (11.6-14.8)
[2024-05-05 04:48] LABS: BUN Creatinine Ratio 19.6 (6-22); Blood Urea Nitrogen 10 mg/dL (9-20); Calcium 8.5 mg/dL (8.4-10.2); Carbon Dioxide 28 mmol/L (22-32); Chloride 103 mmol/L (98-107); Estimated Glomerular Filt Rate > 60 mL/min (>60); Glucose 105 mg/dL (80-110); HEMOLYSIS < 15 (0-50); Potassium 3.7 mmol/L (3.4-5.1); Sodium 133 mmol/L (137-145)
[2024-05-05 07:00] VITALS: O2SAT 90
--- NOTE | 2024-05-05 07:50 | P.PN_ITS ---
Subjective Subjective Interval history: Summary: Admitted with recurrent aspiration pneumonia in context of esophageal cancer and J-tube. S: Exam Vital Signs (past 8 hours): - 05/05/24 00:00 05/05/24 04:00 Temperature 98.6 F 97.6 F Pulse Rate 88 90 Respiratory Rate 12 12 Blood Pressure 102/64 111/71 Pulse Oximetry 95 92 Oxygen Flow Rate 2 2 Fraction of Inspired Oxygen 28 SaO2/FiO2 Ratio 328 Oxygen Delivery Method Nasal Cannula Oxygen Flow Rate 2 Narrative Exam Narrative: NAD, alert and oriented. Fluent speech. Lungs are clear, normal rate and effort. Heart is regular, no murmur gallop or rub. Abdomen is soft, non distended. Extremities are free of edema. Objective Labs 05/05/24 04:27 05/05/24 04:27 Labs: Laboratory Results - last 24 hr 05/05/24 04:27 WBC 8.0 RBC 3.38 L Hgb 9.2 L Hct 28.0 L MCV 82.9 MCH 27.2 MCHC 32.8 RDW 17.3 H Plt Count 215 Neut % (Auto) 88.2 H Lymph % (Auto) 2.3 L [place] % (Auto) 7.7 Eos % (Auto) 1.4 L Baso % (Auto) 0.4 Neut # (Auto) 7100 H Lymph # (Auto) 200 L [place] # (Auto) 600 Eos # (Auto) 100 Baso # (Auto) 0 Sodium 133 L Potassium 3.7 Chloride 103 Carbon Dioxide 28 BUN 10 Creatinine 0.51 L Estimated GFR > 60 BUN/Creatinine Ratio 19.6 Glucose 105 Calcium 8.5 PFSH Medical History Aspiration pneumonia GARCIA (dyspnea on exertion) Severe headache Cancer associated pain Weight loss, non-intentional Urinary tract infection symptoms Class 1 obesity (06/23/13) Gastrointestinal tube in situ Insomnia Epigastric pain Hx of esophageal spasm Upper extremity somatic dysfunction Chronic pain of right thumb Left ankle swelling Thoracic region somatic dysfunction Cervical somatic dysfunction Cranial somatic dysfunction Unilateral occipital headache Whiplash injury to neck PTSD (post-traumatic stress disorder) Limb swelling [place] use COPD (chronic obstructive pulmonary disease) Lumbar spine pain Right arm fracture Chronic back pain Vision abnormalities Hearing loss (08/10/94) History of alcohol abuse Substance abuse Bipolar disorder Anxiety Spinal stenosis Cervical spine disease Chronic cluster headache (06/23/13) Surgical History Anesthesia History of surgery on arm History of facial surgery History of testicular surgery History of spinal fusion History of spinal fusion History of tonsillectomy History of knee replacement (05/29/14) Family History Mother Suicide Asthma Bipolar disorder Depression Sister Age: 73 Healthy adult Father Emphysema of lung Sister Crohn's disease Substance abuse Social History household members: none other: Pt lives with a friend who is a disabled [employer] vet who needs assistance, Smoking Status: Former smoker alcohol intake: never substance use type: marijuana Assessment & Plan Assessment & Plan narrative: 1. Aspiration pneumonia, present on admission and active. 2. Esophageal cancer, present on admission and active. 3. Bipolar, present on admission and active. 4. Seizure disorder, present on admission and active. 5. COPD, present on admission and active. 6. Recurrent aspiration pneumonia. 7. Protein caloric malnutrition, present on admission and active. 8. Hypovolemic hyponatremia, present on admission and active. Plan: -IV antibiotics, change to Unasyn. -follow up blood and sputum cultures. -continue enteral feeding support and nutrition consult. -wean oxygen as able. -IV fluids, saline for hypovolemic hyponatremia. -usual medications. FLORIAN: 05/05 if improved breathing. He is DNR and DNI. This was discussed at time of admission. Inpatient status, anticipate 2 midnight need for hospital services. Time-Based Coding :: [TOTAL MINUTES] spent with patient and on the chart (including review of chart, obtaining history, exam, reviewing outside data, placing orders, documenting exam and treatment plan, and counseling patient) on [DATE]. Quality VTE Deep Vein Thrombosis/Pulmonary Embolism Present on Admission: No
[2024-05-05 08:37] VITALS: BP 107/69; PULSE 83; RESP 19; TEMP 36.1; O2SAT 92
[2024-05-05] MEDS: GABAPENTIN 300 MG CAPSULE 600 MG TUBE (09:21)
[2024-05-05] MEDS: HEPARIN 5,000 UNIT/ML VIAL 5000 UNIT SUBCUT (09:21)
[2024-05-05] MEDS: OXYCODONE 5 MG/5 ML ORAL SOLUTION 15 MG TUBE (09:21)
[2024-05-05 10:03] VITALS: O2SAT 94
--- NOTE | 2024-05-05 11:03 | P.DS_ITS ---
History of Present Illness History of Present Illness Chief complaint: fever, SOB, nausea vomitting Narrative: From ED doctor: 68-year-old gentleman with a history of recurrent distal esophageal cancer, aspiration pneumonia, J-tube in place, bipolar disorder, seizure disorder, cancer-related pain and emphysema presents complaining of increasing cough general malaise fever noted at home, vomiting much of the evening and feeling poorly. His cough is more productive than it has been over the last couple of days. Of note he was admitted to the hospital for a right lower lobe aspiration pneumonia April 09 through April 15. He is continuing to use her feeding tube, minimal oral intake but he is able to vomit. Additional information: He has been ill for a couple of days with increased shortness a breath, low-grade fevers, and a cough. He has extensive pain through his body and uses oxycodone elix which she was happy with. He was scheduled for chemotherapy on Thursday at [facility]. He does not use home oxygen but was hypoxemic care. He still eats soft foods and liquids without choking or regurgitation. He has tube feeds through his PEG, using 5-6 bottles of his enteral feeds a day. These are usually daytime. He denies any difficulties with bowel movements or urination. No abdominal pain. Discharge Providers Provider Date of admission: 05/03/24 14:22 Discharge Date: 05/05/24 Primary care physician: Reji Chowdhury DO Consults: None. Discharge provider: Ghassna Lal MD Summary Hospital Course Discharge Diagnosis: 1. Aspiration pneumonia, present on admission and improved. 2. Esophageal cancer (recurrent) with a history of partial esophageal resection and chemotherapy, present on admission and active. 3. Bipolar, present on admission and active. 4. Seizure disorder, present on admission and active. 5. COPD, present on admission and stable. 6. Recurrent aspiration pneumonia. Has a J-tube. 7. Severe chronic protein calorie malnutrition r/t increased nutrient needs (energy-protein) and difficulty swallowing aeb 30% weight loss in 1 yr, severe, severe muscle mass loss (temporalis, deltoid, trapezius, pectoralis), moderate to severe subcutaneous fat loss (buccal and orbital fat pads), BMI underweight for age (19), esophageal cancer and on chemotherapy?. Present on admission and active. 8. Hypovolemic hyponatremia, present on admission and active. Hospital Course: He was admitted with aspiration pneumonia which is a recurrent issue for him. He was treated with an empiric antibiotics and improved. He was initially requiring oxygen, he was able to wean off from this. In the day of discharge he was eager to return home. Duragesic was trialed and this did not work very well for him and he felt strange while on it. His oxycodone was increased from 10-15 mg and he was happy with pain control related to his metastatic cancer. He was due to have chemotherapy on May 06, but we will push this back at least 2 weeks since he is on antibiotics. Status at Discharge Cognitive/behavioral status at discharge: oriented Functional status at discharge: independent ambulation Overall status at discharge: patient is back to baseline Time Spent with Patient Time spent: Greater than 30 minutes Exam Vital Signs (past 8 hours): - 05/05/24 04:00 05/05/24 08:37 05/05/24 10:03 Temperature 97.6 F 96.9 F L Pulse Rate 90 83 Respiratory Rate 12 19 Blood Pressure 111/71 107/69 Pulse Oximetry 92 92 94 Oxygen Delivery Method Nasal Cannula Oxygen Flow Rate 2 2 2 Fraction of Inspired Oxygen 28 SaO2/FiO2 Ratio 328 Oxygen Delivery Method Nasal Cannula Oxygen Flow Rate 2 Narrative Exam Narrative: NAD, alert and oriented. Fluent speech. Cachectic and chronically ill in appearance. Lungs are clear, normal rate and effort. Breathing comfortably. Heart is regular, no murmur gallop or rub. Abdomen is soft, non distended. Extremities are free of edema. Objective Labs 05/05/24 04:27 05/05/24 04:27 Labs: Laboratory Results - last 24 hr 05/05/24 04:27 WBC 8.0 RBC 3.38 L Hgb 9.2 L Hct 28.0 L MCV 82.9 MCH 27.2 MCHC 32.8 RDW 17.3 H Plt Count 215 Neut % (Auto) 88.2 H Lymph % (Auto) 2.3 L [place] % (Auto) 7.7 Eos % (Auto) 1.4 L Baso % (Auto) 0.4 Neut # (Auto) 7100 H Lymph # (Auto) 200 L [place] # (Auto) 600 Eos # (Auto) 100 Baso # (Auto) 0 Sodium 133 L Potassium 3.7 Chloride 103 Carbon Dioxide 28 BUN 10 Creatinine 0.51 L Estimated GFR > 60 BUN/Creatinine Ratio 19.6 Glucose 105 Calcium 8.5 [facility] Medical History Aspiration pneumonia GARCIA (dyspnea on exertion) Severe headache Cancer associated pain Weight loss, non-intentional Urinary tract infection symptoms Class 1 obesity (06/23/13) Gastrointestinal tube in situ Insomnia Epigastric pain Hx of esophageal spasm Upper extremity somatic dysfunction Chronic pain of right thumb Left ankle swelling Thoracic region somatic dysfunction Cervical somatic dysfunction Cranial somatic dysfunction Unilateral occipital headache Whiplash injury to neck PTSD (post-traumatic stress disorder) Limb swelling [place] use COPD (chronic obstructive pulmonary disease) Lumbar spine pain Right arm fracture Chronic back pain Vision abnormalities Hearing loss (08/10/94) History of alcohol abuse Substance abuse Bipolar disorder Anxiety Spinal stenosis Cervical spine disease Chronic cluster headache (06/23/13) Surgical History Anesthesia History of surgery on arm History of facial surgery History of testicular surgery History of spinal fusion History of spinal fusion History of tonsillectomy History of knee replacement (05/29/14) Family History Mother Suicide Asthma Bipolar disorder Depression Sister Age: 73 Healthy adult Father Emphysema of lung Sister Crohn's disease Substance abuse Social History household members: none other: Pt lives with a friend who is a disabled [facility] vet who needs assistance, Smoking Status: Former smoker alcohol intake: never substance use type: marijuana Discharge Assessment & Plan Assessment and Plan Assessment: 1. Aspiration pneumonia, present on admission and improved. 2. Esophageal cancer (recurrent) with a history of partial esophageal resection and chemotherapy, present on admission and active. 3. Bipolar, present on admission and active. 4. Seizure disorder, present on admission and active. 5. COPD, present on admission and stable. 6. Recurrent aspiration pneumonia. Has a J-tube. 7. Severe chronic protein calorie malnutrition r/t increased nutrient needs (energy-protein) and difficulty swallowing aeb 30% weight loss in 1 yr, severe, severe muscle mass loss (temporalis, deltoid, trapezius, pectoralis), moderate to severe subcutaneous fat loss (buccal and orbital fat pads), BMI underweight for age (19), esophageal cancer and on chemotherapy?. Present on admission and active. 8. Hypovolemic hyponatremia, present on admission and active. Plan of Treatment: Discharge home on oral antibiotics, Augmentin b.i.d.. He will be given to really feels for Augmentin. The patient also he was given oxycodone 15 mg tablets, # 14. To use Q 8 hours as needed pain. Discharge Plan Discharge Plan Patient Disposition: Home Provider Discharge Comment: Stable for discharge home on oral antibiotics and close follow up. Discharge orders & Medications Prescriptions: New oxycodone 15 mg tablet 15 mg PO Q8H PRN (Reason: pain) Qty: 14 0RF amoxicillin-pot clavulanate 875-125 mg tablet 1 tab PO BID Qty: 14 3RF Continued (DME) BD Luer-Laure Syringe 3 mL 25 x 5/8 syringe See Rx Instructions .Route Qty: 100 0RF Rx Instructions: USE TO DRAW AND INJECT SUMATRIPTAN SUBCUTANEOUSLY AT ONSET OF HEADACHE. NOT TO EXCEED 2 INJECTIONS IN 24 HOUR PERIOD. (DME) Disabled Parking Permit See Rx Instructions .ROUTE .MEDSUPPLY Qty: 1 0RF Rx Instructions: I find this patient to be medically disabled and qualified for Disabled Parking as indicated on the accompanying Disabled Parking Application for Individuals. (DME) Home Oxygen See Rx Instructions .Route .MEDSUPPLY Qty: 1 0RF Rx Instructions: Use oxygen at the start of a cluster headache via face mask at 15L for until headache is gone albuterol sulfate 90 mcg/actuation HFA aerosol inhaler 2 inh inhalation Q4-6H PRN (Reason: shortness of breath or wheezing) Qty: 6.7 6RF ondansetron 8 mg tablet,disintegrating 8 mg PO 3XD gabapentin 600 mg tablet 600 mg PO BEDTIME amitriptyline 100 mg tablet 300 mg PO BEDTIME quetiapine 50 mg tablet 150 mg PO BEDTIME lamotrigine 100 mg tablet 100 mg PO BEDTIME baclofen 10 mg tablet 30 mg PO BEDTIME duloxetine 30 mg capsule,delayed release(DR/EC) 60 mg PO BEDTIME Discontinued oxycodone 5 mg/5 mL solution 10 mg PO Q4-6H PRN (Reason: CANCER pain) Qty: 1000 0RF Rx Instructions: EXEMPT. PRESCRIPTION FOR CANCER PAIN. Follow up/Referrals: Reji Chowdhury DO [Primary Care Provider] - Discharge Health Status Multidrug resistant organism: No MDRO Diet/Activity/Treatments Activity: As tolerated. Skin/Wound/Dressing Care Report to your healthcare provider any signs of infection, such as:: chills, fever and increased pain Visit Report/Discharge Packet Instructions: DI for Aspiration Pneumonia Stand Alone Forms: Patient Portal/API Discharge Data Primary Care Provider: Reji Chowdhury Quality VTE Deep Vein Thrombosis/Pulmonary Embolism Present on Admission: No
[2024-05-05 12:00] VITALS: RESP 17; O2SAT 91
--- NOTE | 2024-05-05 12:35 | CM.DPC ---
Addendum entered by MERNA Ozuna 05/05/24 14:50: ADD: Per , pt medically stable to d/c home today. RUEL secure emailed discharge summary, F2F, and HH orders to [facility] to review. Discharge instructions provided and pt taken to friend POV for d/c to home. BF Original Note: DCP Cont: Per MD, pt making progress but currently does not anticipate any ST needs at this time and anticipates likely d/c home tomorrow 05/06 with new [facility] orders. Currently no need for inpatient PT/OT eval at this time. [facility] following as they had been working with patient previously but needed new F2F and orders. F2F and HH orders complete. Plan: SW to follow for plan of home via friend POV when medically stable and to fax F2F, HH orders, and d/c summ to [facility] at discharge. MERNA Ozuna
== END 2024-05-05 12:10 | disposition home health service (06) | DRG 177 ==
LOC: ED 14:08 → AC 14:23
PROVIDERS: Admitting Provider Hospitalist; Emergency Provider Emergency Medicine; PCP Family Medicine; Referring Provider Emergency Medicine; Visit Provider Hospitalist
DX: J69.0 Pneumonitis due to inhalation of food and vomit (principal); E43 Unspecified severe protein-calorie malnutrition; Z68.1 Body mass index [BMI] 19.9 or less, adult; C15.9 Malignant neoplasm of esophagus, unspecified; E87.1 Hypo-osmolality and hyponatremia; F31.9 Bipolar disorder, unspecified; G40.909 Epilepsy, unspecified, not intractable, without status epilepticus; J44.9 Chronic obstructive pulmonary disease, unspecified; Z66 Do not resuscitate; Z87.01 Personal history of pneumonia (recurrent); Z98.890 Other specified postprocedural states; Z87.891 Personal history of nicotine dependence; Z93.4 Other artificial openings of gastrointestinal tract status
CPT/HCPCS: 36415; 71045; 71275; 80048; 80053; 83605; 83690; 84145; 85025; 85610; 85730; 87040; 87633; 93005; 93010; 94640; 94760; 96361; 96365; 96367; 96375; 99285; J0295; J0692; J1170; J1644; J2405; J7613

== ENCOUNTER 2024-05-13 04:09 | Emergency (ER) | payer OTHER, MEDICAID, SELFPAY ==
[2024-05-03 14:25] VITALS: BMI 19.0
[2024-05-13 04:11] VITALS: BP 122/78; PULSE 87; RESP 18; TEMP 36.6; O2SAT 88
--- NOTE | 2024-05-13 04:12 | DI.CT.S_ITS ---
PROCEDURE: CT CERVICAL SPINE WO CON INDICATIONS: GLF/HEAD INJURY TECHNIQUE: Noncontrast 3 mm thick sections acquired from the skull base to the T4 level. Sagittal and coronal reformats were then constructed. For radiation dose reduction, the following was used: automated exposure control, adjustment of mA and/or kV according to patient size. COMPARISON: [facility], CT, CT CERVICAL SPINE WO CON, 01/29/2021, 11:59. FINDINGS: Image quality: Diagnostic Bones: Similar appearance of the odontoid fracture, with trace subluxation again seen at C1 on C2. Fusion hardware at C5-C7 also similar to prior. No new vertebral body height loss or traumatic subluxation [id number] background spondylosis. Soft tissues: Emphysema. Partially seen right central line. No pathologic prevertebral soft tissue swelling. IMPRESSION: Similar appearance of the odontoid fracture and postsurgical changes at C5-C7. No new displaced fracture or dislocation. If there is high concern for further derangement, consider MRI evaluation. No significant discrepancy from prelim report. Dictated by: Micheal Thorne M.D. on 05/13/2024 at 8:04 Approved by: Micheal Thorne M.D. on 05/13/2024 at 8:07
--- NOTE | 2024-05-13 04:12 | DI.CT.S_ITS ---
PROCEDURE: CT HEAD/BRAIN WO CON INDICATIONS: GLF/HEAD INJURY TECHNIQUE: Noncontrast 4.5 mm thick angled axial sections acquired from the foramen magnum to the vertex, with coronal and sagittal reformats. For radiation dose reduction, the following was used: automated exposure control, adjustment of mA and/or kV according to patient size. COMPARISON: [facility], CT, CT HEAD WITHOUT CONTRAST, 03/26/2024, 3:11. FINDINGS: Image quality: Diagnostic CSF spaces: Basal cisterns are patent. Lateral ventricles are symmetric. Volume: Vascular calcifications. Periventricular white matter disease is commonly seen with chronic microangiopathy. Volume loss is present. These findings are [id number] Brain: No acute hemorrhage or gross loss of hsu-white differentiation Craniofacial structures: No significant paranasal sinus opacity IMPRESSION: No acute intracranial pathology. Agree with prelim report Dictated by: Micheal Thorne M.D. on 05/13/2024 at 8:03 Approved by: Micheal Thorne M.D. on 05/13/2024 at 8:04
--- NOTE | 2024-05-13 04:12 | ED.FALL ---
HPI - Fall General Chief Complaint: Head Injury Stated Complaint: fall Time Seen by Provider: 05/13/24 04:10 History of Present Illness HPI Narrative: 68 year old male with history of esophageal cancer, J tube dependency, chronic pain, COPD, bipolar 1, seizure disorder presents by EMS from home for evaluation after ground level fall. Patient states that he was trying to walk to the bathroom and tripped over his feet, falling on the floor and striking his forehead against the ground. Denies loss of consciousness, denies use of blood thinners. Patient arrives with small skin tear to right distal forearm and small laceration over right eyebrow Related Data Home Medications Medication Instructions Recorded Confirmed ondansetron 8 mg disintegrating 8 mg PO 3XD 03/15/24 05/12/24 tablet amitriptyline 100 mg tablet 300 mg PO BEDTIME 05/03/24 05/12/24 baclofen 10 mg tablet 30 mg PO BEDTIME 05/03/24 05/12/24 duloxetine 30 mg capsule,delayed 60 mg PO BEDTIME 05/03/24 05/12/24 release gabapentin 600 mg tablet 600 mg PO BEDTIME insomnia 05/03/24 05/12/24 lamotrigine 100 mg tablet 100 mg PO BEDTIME 05/03/24 05/12/24 quetiapine 50 mg tablet 150 mg PO BEDTIME 05/03/24 05/12/24 Previous Rx's Medication Instructions Recorded Home Oxygen #1 ea 02/17/23 syringe with needle 3 mL 25 x 5/8 #100 ea 03/18/23 (BD Luer-Laure Syringe) albuterol sulfate 90 mcg/actuation 2 inh inhalation Q4-6H PRN 02/05/24 aerosol inhaler shortness of breath or wheezing #6.7 grams amoxicillin 875 mg-potassium 1 tab PO BID #14 tabs 05/05/24 clavulanate 125 mg tablet oxycodone 15 mg tablet 15 mg PO Q8H PRN pain #14 tabs 05/05/24 oxycodone 10 mg tablet 10 mg PO Q1-4H PRN esophageal 05/09/24 cancer pain #300 tabs Disabled Parking Permit #1 ea 05/12/24 dronabinol 5 mg capsule (Marinol) 5 mg PO BID #60 caps 05/12/24 Allergies Allergy/AdvReac Type Severity Reaction Status Date / Time mold Allergy Severe Cough Verified 05/12/24 10:31 Patient History Medical History Anorexia Bacterial pneumonia Aspiration pneumonia GARCIA (dyspnea on exertion) Severe headache Cancer associated pain Weight loss, non-intentional Urinary tract infection symptoms Class 1 obesity (06/23/13) Gastrointestinal tube in situ Insomnia Epigastric pain Hx of esophageal spasm Upper extremity somatic dysfunction Chronic pain of right thumb Left ankle swelling Thoracic region somatic dysfunction Cervical somatic dysfunction Cranial somatic dysfunction Unilateral occipital headache Whiplash injury to neck PTSD (post-traumatic stress disorder) Limb swelling [place] use COPD (chronic obstructive pulmonary disease) Lumbar spine pain Right arm fracture Chronic back pain Vision abnormalities Hearing loss (08/10/94) History of alcohol abuse Substance abuse Bipolar disorder Anxiety Spinal stenosis Cervical spine disease Chronic cluster headache (06/23/13) Surgical History Anesthesia History of surgery on arm History of facial surgery History of testicular surgery History of spinal fusion History of spinal fusion History of tonsillectomy History of knee replacement (05/29/14) Family History Mother Suicide Asthma Bipolar disorder Depression Sister Age: 73 Healthy adult Father Emphysema of lung Sister Crohn's disease Substance abuse Social History household members: none other: Pt lives with a friend who is a disabled [facility] vet who needs assistance, Smoking Status: Former smoker alcohol intake: never substance use type: marijuana Smoking Status: Former smoker tobacco type: cigarettes alcohol intake frequency: 0-2 drinks per day Substance Use Type: does not use Exam Initial Vital Signs Initial Vital Signs: Vital Signs Temperature 97.9 F 05/13/24 04:11 Pulse Rate 87 05/13/24 04:11 Respiratory Rate 18 05/13/24 04:11 Blood Pressure 122/78 05/13/24 04:11 Pulse Oximetry 88 L 05/13/24 04:11 Oxygen Delivery Method Room Air 05/13/24 04:11 Const: Awake, alert, debilitated, frail, appears chronically unwell HEENT: Small contusion right forehead, PERRLA, EOMI MSK: No deformity, full range of motion, pulses equal Skin: Warm, Dry, 2 cm jagged oblique laceration over right eyebrow, small skin tear right anterior forearm Neuro: AO x3, CN II-XII grossly intact, moves all extremities Course Orders Ordered: ED Orders 05/13/24 04:12 CT cervical spine wo con Stat CT head/brain wo con Stat 05/13/24 04:53 CBC Auto Diff [Complete Blood Count AUTO DIFF] Stat CMP [Comprehensive Metabolic Panel] Stat Discontinued Medications Albuterol/Ipratropium (Albuterol/Ipratropium 3 Ml Ampul) 3 ml INH NOW ONE Stop: 05/13/24 05:04 Vital Signs Vital signs: Vital Signs - 8 hr 05/13/24 04:11 05/13/24 05:05 Temperature 97.9 F Pulse Rate 87 94 H Respiratory Rate 18 18 Blood Pressure 122/78 109/71 Pulse Oximetry 88 L 92 Oxygen Delivery Method Room Air Room Air MDM - Fall MDM Narrative Medical decision making narrative: Ground level fall with minor head injury. Small superficial laceration over R eyebrow. Repaired with dermabond and steri-strips. Initially the oxygen saturations appeared to be in the mid 80s, however patient's hands were cold, and when pulse ox was applied to earlobe saturations maintained between 92-94%, which patient states is his baseline. He was not wear oxygen at home. CT brain and C-spine imaging negative for acute findings.Patient discharged home in stable condition. Discharge Plan Departure Patient Disposition: Home Clinical Impression: Forehead laceration, Closed head injury Instructions: DI for Closed Head Injury Activity Restrictions/Additional Instructions: The Dermabond on your forehead we will gradually fall off in the next week or so. Keep the area clean and dry. Follow up as needed with your primary care doctor. You may take Tylenol and ibuprofen as needed for pain and apply ice to areas of swelling Prescriptions: No Action (DME) BD Luer-Laure Syringe 3 mL 25 x 5/8 syringe See Rx Instructions .Route Qty: 100 0RF Rx Instructions: USE TO DRAW AND INJECT SUMATRIPTAN SUBCUTANEOUSLY AT ONSET OF HEADACHE. NOT TO EXCEED 2 INJECTIONS IN 24 HOUR PERIOD. oxycodone 10 mg tablet 10 mg PO Q1-4H MDD 40mg PRN (Reason: esophageal cancer pain) Qty: 300 0RF Rx Instructions: EXEMPT CANCER PAIN (DME) Home Oxygen See Rx Instructions .Route .MEDSUPPLY Qty: 1 0RF Rx Instructions: Use oxygen at the start of a cluster headache via face mask at 15L for until headache is gone albuterol sulfate 90 mcg/actuation HFA aerosol inhaler 2 inh inhalation Q4-6H PRN (Reason: shortness of breath or wheezing) Qty: 6.7 6RF ondansetron 8 mg tablet,disintegrating 8 mg PO 3XD dronabinol [Marinol] 5 mg capsule 5 mg PO BID Qty: 60 5RF Rx Instructions: administer before lunch and evening meal/dinner (DME) Disabled Parking Permit See Rx Instructions .ROUTE .MEDSUPPLY Qty: 1 0RF Rx Instructions: I find this patient to be medically disabled and qualified for Disabled Parking as indicated on the accompanying Disabled Parking Application for Individuals. gabapentin 600 mg tablet 600 mg PO BEDTIME amitriptyline 100 mg tablet 300 mg PO BEDTIME quetiapine 50 mg tablet 150 mg PO BEDTIME lamotrigine 100 mg tablet 100 mg PO BEDTIME baclofen 10 mg tablet 30 mg PO BEDTIME duloxetine 30 mg capsule,delayed release(DR/EC) 60 mg PO BEDTIME oxycodone 15 mg tablet 15 mg PO Q8H PRN (Reason: pain) Qty: 14 0RF amoxicillin-pot clavulanate 875-125 mg tablet 1 tab PO BID Qty: 14 3RF Referrals: Reji Chowdhury DO [Primary Care Provider] - Stand Alone Forms: Patient Portal/API
[2024-05-13 05:05] VITALS: BP 109/71; PULSE 94; RESP 18; O2SAT 92
--- NOTE | 2024-05-13 05:21 | PC.NURSE ---
Pt ambulatory to restroom with 1 person assist.
--- NOTE | 2024-05-13 06:20 | PC.NURSE ---
Waiting for cab for discharge.
== END 2024-05-13 06:41 | disposition home or self-care (01) ==
PROVIDERS: Emergency Provider Emergency Medicine; PCP Family Medicine
DX: S01.81XA Laceration without foreign body of other part of head, initial encounter (principal); S09.90XA Unspecified injury of head, initial encounter; W01.198A Fall on same level from slipping, tripping and stumbling with subsequent striking against other object, initial encounter
CPT/HCPCS: 12011; 70450; 72125; 99281; 99284

== ENCOUNTER 2024-05-15 05:45 | Emergency (ER) | payer OTHER, MEDICAID, SELFPAY ==
[2024-05-03 14:25] VITALS: BMI 19.0
[2024-05-15 05:47] VITALS: BP 151/88; PULSE 105; RESP 16; TEMP 36.4; O2SAT 89; BMI 19.9
--- NOTE | 2024-05-15 05:47 | ED.GENADULT ---
HPI - General Adult General Chief complaint: Urogenital-Male Stated complaint: diff. urinating Time Seen by Provider: 05/15/24 05:45 Source: patient Mode of arrival: EMS Limitations: no limitations History of Present Illness HPI narrative: 68-year-old male who was seen here in the emergency department a couple days ago after sustaining a fall in causing a laceration to his head that was repaired. He states he returns in the emergency department today for urinary retention. States that he feels like he needs to urinate has been unable to do so. His last urination was yesterday afternoon. Lot of lower abdominal pain. He was never had issues like this in the past Related Data Home Medications Medication Instructions Recorded Confirmed ondansetron 8 mg disintegrating 8 mg PO 3XD 03/15/24 05/12/24 tablet amitriptyline 100 mg tablet 300 mg PO BEDTIME 05/03/24 05/12/24 baclofen 10 mg tablet 30 mg PO BEDTIME 05/03/24 05/12/24 duloxetine 30 mg capsule,delayed 60 mg PO BEDTIME 05/03/24 05/12/24 release gabapentin 600 mg tablet 600 mg PO BEDTIME insomnia 05/03/24 05/12/24 lamotrigine 100 mg tablet 100 mg PO BEDTIME 05/03/24 05/12/24 quetiapine 50 mg tablet 150 mg PO BEDTIME 05/03/24 05/12/24 Previous Rx's Medication Instructions Recorded Home Oxygen #1 ea 02/17/23 syringe with needle 3 mL 25 x 5/8 #100 ea 03/18/23 (BD Luer-Laure Syringe) albuterol sulfate 90 mcg/actuation 2 inh inhalation Q4-6H PRN 02/05/24 aerosol inhaler shortness of breath or wheezing #6.7 grams amoxicillin 875 mg-potassium 1 tab PO BID #14 tabs 05/05/24 clavulanate 125 mg tablet oxycodone 15 mg tablet 15 mg PO Q8H PRN pain #14 tabs 05/05/24 oxycodone 10 mg tablet 10 mg PO Q1-4H PRN esophageal 05/09/24 cancer pain #300 tabs Disabled Parking Permit #1 ea 05/12/24 dronabinol 5 mg capsule (Marinol) 5 mg PO BID #60 caps 05/12/24 Allergies Allergy/AdvReac Type Severity Reaction Status Date / Time mold Allergy Severe Cough Verified 05/12/24 10:31 Review of Systems Constitutional Constitutional: Reports system reviewed and no additional complaints, except as documented Gastrointestinal Gastrointestinal: Reports system reviewed and no additional complaints, except as documented Genitourinary Genitourinary: Reports system reviewed and no additional complaints, except as documented Integumentary/Breasts Skin/Breast: Reports system reviewed and no additional complaints, except as documented Patient History Medical History Anorexia Bacterial pneumonia Aspiration pneumonia GARCIA (dyspnea on exertion) Severe headache Cancer associated pain Weight loss, non-intentional Urinary tract infection symptoms Class 1 obesity (06/23/13) Gastrointestinal tube in situ Insomnia Epigastric pain Hx of esophageal spasm Upper extremity somatic dysfunction Chronic pain of right thumb Left ankle swelling Thoracic region somatic dysfunction Cervical somatic dysfunction Cranial somatic dysfunction Unilateral occipital headache Whiplash injury to neck PTSD (post-traumatic stress disorder) Limb swelling [place] use COPD (chronic obstructive pulmonary disease) Lumbar spine pain Right arm fracture Chronic back pain Vision abnormalities Hearing loss (08/10/94) History of alcohol abuse Substance abuse Bipolar disorder Anxiety Spinal stenosis Cervical spine disease Chronic cluster headache (06/23/13) Surgical History Anesthesia History of surgery on arm History of facial surgery History of testicular surgery History of spinal fusion History of spinal fusion History of tonsillectomy History of knee replacement (05/29/14) Family History Mother Suicide Asthma Bipolar disorder Depression Sister Age: 73 Healthy adult Father Emphysema of lung Sister Crohn's disease Substance abuse Social History household members: none other: Pt lives with a friend who is a disabled [facility] vet who needs assistance, Smoking Status: Former smoker alcohol intake: never substance use type: marijuana Smoking Status: Former smoker tobacco type: cigarettes alcohol intake frequency: 0-2 drinks per day Substance Use Type: does not use Exam Initial Vital Signs Initial Vital Signs: Vital Signs Temperature 97.5 F L 05/15/24 05:47 Pulse Rate 105 H 05/15/24 05:47 Respiratory Rate 16 05/15/24 05:47 Blood Pressure 151/88 H 10/06/24 05:47 Pulse Oximetry 89 L 05/15/24 05:47 Oxygen Delivery Method Room Air 05/15/24 05:47 HENMT Head: normal to inspection and normocephalic GI Inspection: normal to inspection and non-distended External: normal external exam Skin General: no rashes or lesions noted Course Vital Signs Vital signs: Vital Signs - 8 hr 05/15/24 05:47 05/15/24 05:48 05/15/24 05:48 Temperature 97.5 F L Pulse Rate 105 H 102 H Respiratory Rate 16 Blood Pressure 151/88 H 151/88 H Pulse Oximetry 89 L 89 L Oxygen Delivery Method Room Air 05/15/24 06:00 05/15/24 06:00 05/15/24 06:30 Temperature Pulse Rate 103 H Respiratory Rate Blood Pressure 154/96 H 116/77 Pulse Oximetry 92 Oxygen Delivery Method 05/15/24 06:30 Temperature Pulse Rate 97 H Respiratory Rate Blood Pressure Pulse Oximetry 89 L Oxygen Delivery Method Room Air Medical Decision Making Lab Data Labs: Urine Dip Bedside Urine Glucose Negative Bedside Urine Bilirubin - Negative Bedside Urine Ketone - Negative Urine Specific [place] 1.010 Bedside Urine Occult Blood - Negative Bedside Urine pH 7.0 Bedside Urine Protein - Negative Bedside Urine Urobilinogen 1+ 2mg Bedside Urine Nitrite - Negative Bedside Urine Leukocytes - Negative Esterase Point of care testing: Urine Dip Bedside Urine Glucose Negative Bedside Urine Bilirubin - Negative Bedside Urine Ketone - Negative Urine Specific [place] 1.010 Bedside Urine Occult Blood - Negative Bedside Urine pH 7.0 Bedside Urine Protein - Negative Bedside Urine Urobilinogen 1+ 2mg Bedside Urine Nitrite - Negative Bedside Urine Leukocytes - Negative Esterase MDM Narrative Medical decision making narrative: The [place] catheter was placed with return of greater than 500 cc of urine. He stated that his lower abdominal discomfort has now completely resolved. UA is not consistent with UTI. After discussion with the patient we will leave the [place] catheter in place. He was given care instructions. Was also instructed to follow-up with urology this week. He was given return precautions. He expressed understanding and agreement. Discharge Plan Departure Patient Disposition: Home Clinical Impression: Acute urinary retention Instructions: How to Care for Your [place] Catheter -- Male, DI for Urinary Retention in Men Activity Restrictions/Additional Instructions: You can continue to take all of your medications as directed. Recommend on Thursday morning when the office is open you contact the Urology Department at the number provided below for a follow-up next week. Return to the emergency department for new or worsening symptoms. Prescriptions: No Action (DME) BD Luer-Laure Syringe 3 mL 25 x 5/8 syringe See Rx Instructions .Route Qty: 100 0RF Rx Instructions: USE TO DRAW AND INJECT SUM[place] SUBCUTANEOUSLY AT ONSET OF HEADACHE. NOT TO EXCEED 2 INJECTIONS IN 24 HOUR PERIOD. oxycodone 10 mg tablet 10 mg PO Q1-4H MDD 40mg PRN (Reason: esophageal cancer pain) Qty: 300 0RF Rx Instructions: EXEMPT CANCER PAIN (DME) Home Oxygen See Rx Instructions .Route .MEDSUPPLY Qty: 1 0RF Rx Instructions: Use oxygen at the start of a cluster headache via face mask at 15L for until headache is gone albuterol sulfate 90 mcg/actuation HFA aerosol inhaler 2 inh inhalation Q4-6H PRN (Reason: shortness of breath or wheezing) Qty: 6.7 6RF ondansetron 8 mg tablet,disintegrating 8 mg PO 3XD dronabinol [Marinol] 5 mg capsule 5 mg PO BID Qty: 60 5RF Rx Instructions: administer before lunch and evening meal/dinner (DME) Disabled Parking Permit See Rx Instructions .ROUTE .MEDSUPPLY Qty: 1 0RF Rx Instructions: I find this patient to be medically disabled and qualified for Disabled Parking as indicated on the accompanying Disabled Parking Application for Individuals. gabapentin 600 mg tablet 600 mg PO BEDTIME amitriptyline 100 mg tablet 300 mg PO BEDTIME quetiapine 50 mg tablet 150 mg PO BEDTIME lamotrigine 100 mg tablet 100 mg PO BEDTIME baclofen 10 mg tablet 30 mg PO BEDTIME duloxetine 30 mg capsule,delayed release(DR/EC) 60 mg PO BEDTIME oxycodone 15 mg tablet 15 mg PO Q8H PRN (Reason: pain) Qty: 14 0RF amoxicillin-pot clavulanate 875-125 mg tablet 1 tab PO BID Qty: 14 3RF Referrals: Ivan Larios MD [Physician] - Reji Chowdhury DO [Primary Care Provider] - Stand Alone Forms: Patient Portal/API
[2024-05-15 05:48] VITALS: BP 151/88; PULSE 102; O2SAT 89
[2024-05-15 06:00] VITALS: BP 154/96; PULSE 103; O2SAT 92
[2024-05-15 06:30] VITALS: BP 116/77; PULSE 97; O2SAT 89
[2024-05-15 07:00] VITALS: BP 123/87; PULSE 69; RESP 18; TEMP 36.4; O2SAT 92
== END 2024-05-15 07:01 | disposition home or self-care (01) ==
PROVIDERS: Emergency Provider Emergency Medicine; PCP Family Medicine
DX: R33.8 Other retention of urine (principal)
CPT/HCPCS: 51798; 81003

== ENCOUNTER 2024-05-15 10:57 | Emergency (ER) | payer OTHER, MEDICAID, SELFPAY ==
[2024-05-03 14:25] VITALS: BMI 19.0
[2024-05-15 11:06] VITALS: BP 108/71; PULSE 101; RESP 17; TEMP 36.8; O2SAT 91
--- NOTE | 2024-05-15 11:51 | ED.RECABL ---
HPI - Recheck/Abnormal Lab/Rx <Irwin Farah PA-C - Last Filed: 05/15/24 11:57> General Chief Complaint: Recheck/Abnormal Lab/Rx Stated Complaint: Blocked Cath Time Seen by Provider: 05/15/24 11:32 Source: patient and EMS Mode of arrival: EMS History of Present Illness HPI narrative: This patient was seen at this ER earlier today for acute urinary retention and a [place] catheter was placed. There was approximately 500 cc of urine that was removed once the [place] was inserted. The patient had immediate resolve of his lower abdominal pain. Patient called 911 to be brought here by ground ambulance because he did not think the [place] was draining. Bladder scan reveals approximately 50 cc in the bladder. It does appear that the catheter is draining. We will change the leg bag and discharge the patient home. Related Data Home Medications Medication Instructions Recorded Confirmed ondansetron 8 mg disintegrating 8 mg PO 3XD 03/15/24 05/12/24 tablet amitriptyline 100 mg tablet 300 mg PO BEDTIME 05/03/24 05/12/24 baclofen 10 mg tablet 30 mg PO BEDTIME 05/03/24 05/12/24 duloxetine 30 mg capsule,delayed 60 mg PO BEDTIME 05/03/24 05/12/24 release gabapentin 600 mg tablet 600 mg PO BEDTIME insomnia 05/03/24 05/12/24 lamotrigine 100 mg tablet 100 mg PO BEDTIME 05/03/24 05/12/24 quetiapine 50 mg tablet 150 mg PO BEDTIME 05/03/24 05/12/24 Previous Rx's Medication Instructions Recorded Home Oxygen #1 ea 02/17/23 syringe with needle 3 mL 25 x 5/8 #100 ea 03/18/23 (BD Luer-Laure Syringe) albuterol sulfate 90 mcg/actuation 2 inh inhalation Q4-6H PRN 02/05/24 aerosol inhaler shortness of breath or wheezing #6.7 grams amoxicillin 875 mg-potassium 1 tab PO BID #14 tabs 05/05/24 clavulanate 125 mg tablet oxycodone 15 mg tablet 15 mg PO Q8H PRN pain #14 tabs 05/05/24 oxycodone 10 mg tablet 10 mg PO Q1-4H PRN esophageal 05/09/24 cancer pain #300 tabs Disabled Parking Permit #1 ea 05/12/24 dronabinol 5 mg capsule (Marinol) 5 mg PO BID #60 caps 05/12/24 Allergies Allergy/AdvReac Type Severity Reaction Status Date / Time mold Allergy Severe Cough Verified 05/15/24 11:09 Review of Systems <Irwin Farah PA-C - Last Filed: 05/15/24 11:57> Review of Systems Narrative: General: See HPI : See HPI All other review of systems have been reviewed and are ultimately negative unless otherwise stated in the HPI. Patient History <Irwin Farah PA-C - Last Filed: 05/15/24 11:57> Medical History Anorexia Bacterial pneumonia Aspiration pneumonia GARCIA (dyspnea on exertion) Severe headache Cancer associated pain Weight loss, non-intentional Urinary tract infection symptoms Class 1 obesity (06/23/13) Gastrointestinal tube in situ Insomnia Epigastric pain Hx of esophageal spasm Upper extremity somatic dysfunction Chronic pain of right thumb Left ankle swelling Thoracic region somatic dysfunction Cervical somatic dysfunction Cranial somatic dysfunction Unilateral occipital headache Whiplash injury to neck PTSD (post-traumatic stress disorder) Limb swelling [place] use COPD (chronic obstructive pulmonary disease) Lumbar spine pain Right arm fracture Chronic back pain Vision abnormalities Hearing loss (08/10/94) History of alcohol abuse Substance abuse Bipolar disorder Anxiety Spinal stenosis Cervical spine disease Chronic cluster headache (06/23/13) Surgical History Anesthesia History of surgery on arm History of facial surgery History of testicular surgery History of spinal fusion History of spinal fusion History of tonsillectomy History of knee replacement (05/29/14) Family History Mother Suicide Asthma Bipolar disorder Depression Sister Age: 73 Healthy adult Father Emphysema of lung Sister Crohn's disease Substance abuse Social History household members: none other: Pt lives with a friend who is a disabled [facility] vet who needs assistance, Smoking Status: Former smoker alcohol intake: never substance use type: marijuana Smoking Status: Former smoker tobacco type: cigarettes alcohol intake frequency: 0-2 drinks per day Substance Use Type: does not use Exam <EVENS Mcneil Last Filed: 05/15/24 11:57> Initial Vital Signs Initial Vital Signs: Vital Signs Temperature 98.2 F 05/15/24 11:06 Pulse Rate 101 H 05/15/24 11:06 Respiratory Rate 17 05/15/24 11:06 Blood Pressure 108/71 05/15/24 11:06 Pulse Oximetry 91 05/15/24 11:06 Oxygen Delivery Method Room Air 05/15/24 11:06 Const General: cooperative, comfortable, frail appearing and well hydrated [facility] Head: normal to inspection, normocephalic and other (Patient has a closed wound superior to the right eyebrow.) Ears: hearing grossly normal bilaterally and external ears normal Nose: external nose normal and nares normal Face and sinus: normal facial exam Eyes General: Yes appearance normal, both eyes and all related structures Neck Neck: normal visual inspection, full ROM and no meningeal signs Resp Effort & Inspection: normal respiratory effort and able to speak in complete sentences Cardio Rate: regular rate Rhythm: regular rhythm Heart Sounds: S1 normal and S2 normal Back/Spine/Pelvis Back: normal to inspection Skin General: no rashes or lesions noted and elasticity normal Neuro General: patient alert, patient awake and patient oriented x3 Extrem General: normal to inspection, full ROM, capillary refill normal, no clubbing, cyanosis or edema and no pedal edema Psych Mood: congruent mood Affect: normal affect <Shaye Pena DO - Last Filed: 05/16/24 07:30> Initial Vital Signs Initial Vital Signs: Vital Signs Temperature 98.2 F 05/15/24 11:06 Pulse Rate 101 H 05/15/24 11:06 Respiratory Rate 17 05/15/24 11:06 Blood Pressure 108/71 05/15/24 11:06 Pulse Oximetry 91 05/15/24 11:06 Oxygen Delivery Method Room Air 05/15/24 11:06 Course <Irwin Farah PA-C - Last Filed: 05/15/24 11:57> Course Course Narrative: Patient was seen and examined. The bladder scan revealed 50 cc of urine in the bladder. The leg bag was changed out and the patient was then prepped for discharge home. Vital Signs Vital signs: Vital Signs - 8 hr 05/15/24 11:06 Temperature 98.2 F Pulse Rate 101 H Respiratory Rate 17 Blood Pressure 108/71 Pulse Oximetry 91 Oxygen Delivery Method Room Air <Shaye Pena DO - Last Filed: 05/16/24 07:30> Vital Signs Vital signs: Vital Signs - 8 hr 05/15/24 11:06 Temperature 98.2 F Pulse Rate 101 H Respiratory Rate 17 Blood Pressure 108/71 Pulse Oximetry 91 Oxygen Delivery Method Room Air MDM - Recheck/Abnormal Lab/Rx <Irwin Farah PA-C - Last Filed: 05/15/24 11:57> Differential Diagnosis Differential diagnosis: Likely other (Malfunction of [place] catheter, evaluation of [place] catheter, acute urinary retention) Medical Records Attestation: I reviewed the patient's medical records. Lab Data Attestation: I reviewed the patient's lab results. [facility] Narrative Medical decision making narrative: Patient at this time appears to have a functioning [place] catheter. I do not believe there is any acute urinary retention. The patient is afebrile. I do not believe this is a urinary tract infection or malfunctioning catheter. Patient understands the treatment plan. There were no additional questions at the time of discharge and he will follow up as requested. Discharge Plan Departure Patient Disposition: Home Clinical Impression: Angeles catheter in place Instructions: How to Care for Your [place] Catheter -- Male Activity Restrictions/Additional Instructions: Follow-up with your PCP this week to check as a recheck Care for your catheter as discussed Return here for any new, emergent conditions or if you should worsen in any way Prescriptions: No Action (DME) BD Luer-Laure Syringe 3 mL 25 x 5/8 syringe See Rx Instructions .Route Qty: 100 0RF Rx Instructions: USE TO DRAW AND INJECT SUMAT[place] SUBCUTANEOUSLY AT ONSET OF HEADACHE. NOT TO EXCEED 2 INJECTIONS IN 24 HOUR PERIOD. oxycodone 10 mg tablet 10 mg PO Q1-4H MDD 40mg PRN (Reason: esophageal cancer pain) Qty: 300 0RF Rx Instructions: EXEMPT CANCER PAIN (DME) Home Oxygen See Rx Instructions .Route .MEDSUPPLY Qty: 1 0RF Rx Instructions: Use oxygen at the start of a cluster headache via face mask at 15L for until headache is gone albuterol sulfate 90 mcg/actuation HFA aerosol inhaler 2 inh inhalation Q4-6H PRN (Reason: shortness of breath or wheezing) Qty: 6.7 6RF ondansetron 8 mg tablet,disintegrating 8 mg PO 3XD dronabinol [Marinol] 5 mg capsule 5 mg PO BID Qty: 60 5RF Rx Instructions: administer before lunch and evening meal/dinner (DME) Disabled Parking Permit See Rx Instructions .ROUTE .MEDSUPPLY Qty: 1 0RF Rx Instructions: I find this patient to be medically disabled and qualified for Disabled Parking as indicated on the accompanying Disabled Parking Application for Individuals. gabapentin 600 mg tablet 600 mg PO BEDTIME amitriptyline 100 mg tablet 300 mg PO BEDTIME quetiapine 50 mg tablet 150 mg PO BEDTIME lamotrigine 100 mg tablet 100 mg PO BEDTIME baclofen 10 mg tablet 30 mg PO BEDTIME duloxetine 30 mg capsule,delayed release(DR/EC) 60 mg PO BEDTIME oxycodone 15 mg tablet 15 mg PO Q8H PRN (Reason: pain) Qty: 14 0RF amoxicillin-pot clavulanate 875-125 mg tablet 1 tab PO BID Qty: 14 3RF Referrals: Reji Chowdhury DO [Primary Care Provider] - Stand Alone Forms: Patient Portal/API ED Sign-out <Shaye Pena DO - Last Filed: 05/16/24 07:30> Cosign ED Attending Kathy Attestation: I was available for consultation.
[2024-05-15 12:08] VITALS: RESP 16
--- NOTE | 2024-05-15 12:36 | PC.NURSE ---
Pt educated extensively on catheter care, follow up, bag change, s/s UTI. Pt provided teach back training. Pt sent home with wipes and paper pants as requested. Pt states he has friends/family that can help assist him with care if needed. Pt instructed if he has any issues with his catheter to follow up
== END 2024-05-15 12:08 | disposition home or self-care (01) ==
PROVIDERS: Emergency Provider Physician Assistant; PCP Family Medicine
DX: R33.8 Other retention of urine (principal); Z97.8 Presence of other specified devices
CPT/HCPCS: 51798

== ENCOUNTER 2024-05-15 18:13 | Emergency (ER) | payer OTHER, MEDICAID, SELFPAY ==
[2024-05-03 14:25] VITALS: BMI 19.0
--- NOTE | 2024-05-15 18:37 | ED.GENADULT ---
HPI - General Adult <Irwin Farah PA-C - Last Filed: 05/15/24 18:47> General Chief complaint: Urogenital-Male Stated complaint: catheter issues Time Seen by Provider: 05/15/24 18:27 Related Data Home Medications Medication Instructions Recorded Confirmed ondansetron 8 mg disintegrating 8 mg PO 3XD 03/15/24 05/12/24 tablet amitriptyline 100 mg tablet 300 mg PO BEDTIME 05/03/24 05/12/24 baclofen 10 mg tablet 30 mg PO BEDTIME 05/03/24 05/12/24 duloxetine 30 mg capsule,delayed 60 mg PO BEDTIME 05/03/24 05/12/24 release gabapentin 600 mg tablet 600 mg PO BEDTIME insomnia 05/03/24 05/12/24 lamotrigine 100 mg tablet 100 mg PO BEDTIME 05/03/24 05/12/24 quetiapine 50 mg tablet 150 mg PO BEDTIME 05/03/24 05/12/24 Previous Rx's Medication Instructions Recorded Home Oxygen #1 ea 02/17/23 syringe with needle 3 mL 25 x 5/8 #100 ea 03/18/23 (BD Luer-Laure Syringe) albuterol sulfate 90 mcg/actuation 2 inh inhalation Q4-6H PRN 02/05/24 aerosol inhaler shortness of breath or wheezing #6.7 grams amoxicillin 875 mg-potassium 1 tab PO BID #14 tabs 05/05/24 clavulanate 125 mg tablet oxycodone 15 mg tablet 15 mg PO Q8H PRN pain #14 tabs 05/05/24 oxycodone 10 mg tablet 10 mg PO Q1-4H PRN esophageal 05/09/24 cancer pain #300 tabs Disabled Parking Permit #1 ea 05/12/24 dronabinol 5 mg capsule (Marinol) 5 mg PO BID #60 caps 05/12/24 Allergies Allergy/AdvReac Type Severity Reaction Status Date / Time mold Allergy Severe Cough Verified 05/15/24 11:09 Review of Systems <Irwin Farah PA-C - Last Filed: 05/15/24 18:47> Review of Systems Narrative: General: See HPI : See HPI All other review of systems have been reviewed and are ultimately negative unless otherwise stated in the HPI. Patient History <Irwin Farah PA-C - Last Filed: 05/15/24 18:47> Medical History Anorexia Bacterial pneumonia Aspiration pneumonia GARCIA (dyspnea on exertion) Severe headache Cancer associated pain Weight loss, non-intentional Urinary tract infection symptoms Class 1 obesity (06/23/13) Gastrointestinal tube in situ Insomnia Epigastric pain Hx of esophageal spasm Upper extremity somatic dysfunction Chronic pain of right thumb Left ankle swelling Thoracic region somatic dysfunction Cervical somatic dysfunction Cranial somatic dysfunction Unilateral occipital headache Whiplash injury to neck PTSD (post-traumatic stress disorder) Limb swelling [place]on use COPD (chronic obstructive pulmonary disease) Lumbar spine pain Right arm fracture Chronic back pain Vision abnormalities Hearing loss (08/10/94) History of alcohol abuse Substance abuse Bipolar disorder Anxiety Spinal stenosis Cervical spine disease Chronic cluster headache (06/23/13) Surgical History Anesthesia History of surgery on arm History of facial surgery History of testicular surgery History of spinal fusion History of spinal fusion History of tonsillectomy History of knee replacement (05/29/14) Family History Mother Suicide Asthma Bipolar disorder Depression Sister Age: 73 Healthy adult Father Emphysema of lung Sister Crohn's disease Substance abuse Social History household members: none other: Pt lives with a friend who is a disabled [facility] vet who needs assistance, Smoking Status: Former smoker alcohol intake: never substance use type: marijuana Smoking Status: Former smoker tobacco type: cigarettes alcohol intake frequency: 0-2 drinks per day Substance Use Type: does not use Exam <Irwin Farah PA-C - Last Filed: 05/15/24 18:47> Initial Vital Signs Initial Vital Signs: Vital Signs Temperature 97.7 F 05/15/24 18:42 Pulse Rate 97 H 05/15/24 18:42 Respiratory Rate 16 05/15/24 18:42 Blood Pressure 110/76 05/15/24 18:42 Pulse Oximetry 94 05/15/24 18:42 Oxygen Delivery Method Room Air 05/15/24 18:42 Reviewed Const General: cooperative, comfortable and frail appearing [facility] Head: normal to inspection and normocephalic Resp Effort & Inspection: normal respiratory effort and able to speak in complete sentences Auscultation: clear to auscultation bilaterally Cardio Rate: regular rate Rhythm: regular rhythm Heart Sounds: S1 normal and S2 normal GI Palpation: soft and no hepatosplenomegaly Other: Angeles catheter in place that is draining as expected. No signs of obstruction. No leaking. Back/Spine/Pelvis Back: normal to inspection Skin General: no rashes or lesions noted, elasticity normal and turgor normal Neuro General: patient alert, patient awake and patient oriented x3 Extrem General: normal to inspection, full ROM and capillary refill normal Psych Appearance: grossly normal Mental Status: mental status grossly normal Speech and Movement: speech and movement normal <Shaye Pena DO - Last Filed: 05/16/24 07:52> Initial Vital Signs Initial Vital Signs: Vital Signs Temperature 97.7 F 05/15/24 18:42 Pulse Rate 97 H 05/15/24 18:42 Respiratory Rate 16 05/15/24 18:42 Blood Pressure 110/76 05/15/24 18:42 Pulse Oximetry 94 05/15/24 18:42 Oxygen Delivery Method Room Air 05/15/24 18:42 Course <Irwin Farah PA-C - Last Filed: 05/15/24 18:47> Course Course Narrative: Patient was seen and examined. Angeles catheter was re-evaluated and showed no evidence of malfunction. He was then prepped for discharge home. Medical Decision Making <Irwin Farah PA-C - Last Filed: 05/15/24 18:47> Differential Diagnosis Differential Diagnosis: Angeles catheter malfunction, obstructive uropathy, shantanu, UTI, evaluate Angeles Medical Records Medical records reviewed: Yes I reviewed the patient's medical records. Lab Data Lab results reviewed: Yes I reviewed the patient's lab results. MDM Narrative Medical decision making narrative: At this time, this is the patient's 3rd visit in approximately 18 hours. He is not used to having a Angeles catheter. The patient is concerned once again that it is not draining appropriately. He has been educated once again in regards to Angeles catheter care. The Angeles is working as it is supposed to. He was reassured and then prepped for discharge home. Discharge Plan Departure Patient Disposition: Home Clinical Impression: Encounter for Angeles catheter fitting and adjustment Instructions: How to Care for Your Angeles Catheter -- Male Activity Restrictions/Additional Instructions: Angeles care as previously discussed Follow up your PCP this week Return here for any new, emergent concerns or if you should worsen in any way Prescriptions: No Action (DME) BD Luer-Laure Syringe 3 mL 25 x 5/8 syringe See Rx Instructions .Route Qty: 100 0RF Rx Instructions: USE TO DRAW AND INJECT SUMATRIPTAN SUBCUTANEOUSLY AT ONSET OF HEADACHE. NOT TO EXCEED 2 INJECTIONS IN 24 HOUR PERIOD. oxycodone 10 mg tablet 10 mg PO Q1-4H MDD 40mg PRN (Reason: esophageal cancer pain) Qty: 300 0RF Rx Instructions: EXEMPT CANCER PAIN (DME) Home Oxygen See Rx Instructions .Route .MEDSUPPLY Qty: 1 0RF Rx Instructions: Use oxygen at the start of a cluster headache via face mask at 15L for until headache is gone albuterol sulfate 90 mcg/actuation HFA aerosol inhaler 2 inh inhalation Q4-6H PRN (Reason: shortness of breath or wheezing) Qty: 6.7 6RF ondansetron 8 mg tablet,disintegrating 8 mg PO 3XD dronabinol [Marinol] 5 mg capsule 5 mg PO BID Qty: 60 5RF Rx Instructions: administer before lunch and evening meal/dinner (DME) Disabled Parking Permit See Rx Instructions .ROUTE .MEDSUPPLY Qty: 1 0RF Rx Instructions: I find this patient to be medically disabled and qualified for Disabled Parking as indicated on the accompanying Disabled Parking Application for Individuals. gabapentin 600 mg tablet 600 mg PO BEDTIME amitriptyline 100 mg tablet 300 mg PO BEDTIME quetiapine 50 mg tablet 150 mg PO BEDTIME lamotrigine 100 mg tablet 100 mg PO BEDTIME baclofen 10 mg tablet 30 mg PO BEDTIME duloxetine 30 mg capsule,delayed release(DR/EC) 60 mg PO BEDTIME oxycodone 15 mg tablet 15 mg PO Q8H PRN (Reason: pain) Qty: 14 0RF amoxicillin-pot clavulanate 875-125 mg tablet 1 tab PO BID Qty: 14 3RF Referrals: Reji Chowdhury DO [Primary Care Provider] - Stand Alone Forms: Patient Portal/API ED Sign-out <Shaye Pena DO - Last Filed: 05/16/24 07:52> Cosign ED Attending Cosignature Attestation: I was available for consultation.
[2024-05-15 18:42] VITALS: BP 110/76; PULSE 97; RESP 16; TEMP 36.5; O2SAT 94; BMI 20.2
--- NOTE | 2024-05-15 18:54 | PC.NURSE ---
Pt worried that brice catheter is not draining; pt assurred brice is draining. Pt given water and urine output monitored in brice catheter to assure pt urine is draining. Placement of stat lock for catheter repositioned for comfort.
--- NOTE | 2024-05-15 19:03 | PC.NURSE ---
pt given new leg brice bag, stat lock, alcohol wipes to remove stat lock, and over night brice bag.
[2024-05-15 19:38] VITALS: BP 127/85; PULSE 85; RESP 20; TEMP 36.9; O2SAT 94
== END 2024-05-15 19:40 | disposition home or self-care (01) ==
PROVIDERS: Emergency Provider Physician Assistant; PCP Family Medicine
DX: T83.9XXA Unspecified complication of genitourinary prosthetic device, implant and graft, initial encounter (principal); Z46.6 Encounter for fitting and adjustment of urinary device; R33.9 Retention of urine, unspecified
CPT/HCPCS: 51702; 51798; 81003; 99282; 99283

== ENCOUNTER 2024-05-16 04:04 | Emergency (ER) | payer OTHER, MEDICAID, SELFPAY ==
[2024-05-03 14:25] VITALS: BMI 19.0
[2024-05-16] VITALS (7 sets, daily range): BP systolic 124–154; BP diastolic 78–83; PULSE 78–97; RESP 14–18; TEMP 36.3–36.9; O2SAT 95–99
--- NOTE | 2024-05-16 04:07 | ED_ITS ---
HPI - General Adult General Stated complaint: catheter probs Time Seen by Provider: 05/16/24 04:04 Source: patient Mode of arrival: EMS Limitations: no limitations History of Present Illness HPI narrative: Patient is a 68-year-old male who I saw approximately 24 hours ago for urinary retention. Had a Angeles catheter placed. Since that time he was come back to the emergency department multiple times for various issues with the catheter to include it leaking and potential clogging of the catheter. He returns today by EMS because he states it is now leaking around the catheter. Related Data Home Medications Medication Instructions Recorded Confirmed ondansetron 8 mg disintegrating 8 mg PO 3XD 03/15/24 05/12/24 tablet amitriptyline 100 mg tablet 300 mg PO BEDTIME 05/03/24 05/12/24 baclofen 10 mg tablet 30 mg PO BEDTIME 05/03/24 05/12/24 duloxetine 30 mg capsule,delayed 60 mg PO BEDTIME 05/03/24 05/12/24 release gabapentin 600 mg tablet 600 mg PO BEDTIME insomnia 05/03/24 05/12/24 lamotrigine 100 mg tablet 100 mg PO BEDTIME 05/03/24 05/12/24 quetiapine 50 mg tablet 150 mg PO BEDTIME 05/03/24 05/12/24 Previous Rx's Medication Instructions Recorded Home Oxygen #1 ea 02/17/23 syringe with needle 3 mL 25 x 5/8 #100 ea 03/18/23 (BD Luer-Laure Syringe) albuterol sulfate 90 mcg/actuation 2 inh inhalation Q4-6H PRN 02/05/24 aerosol inhaler shortness of breath or wheezing #6.7 grams amoxicillin 875 mg-potassium 1 tab PO BID #14 tabs 05/05/24 clavulanate 125 mg tablet oxycodone 15 mg tablet 15 mg PO Q8H PRN pain #14 tabs 05/05/24 oxycodone 10 mg tablet 10 mg PO Q1-4H PRN esophageal 05/09/24 cancer pain #300 tabs Disabled Parking Permit #1 ea 05/12/24 dronabinol 5 mg capsule (Marinol) 5 mg PO BID #60 caps 05/12/24 Allergies Allergy/AdvReac Type Severity Reaction Status Date / Time mold Allergy Severe Cough Verified 05/15/24 11:09 Review of Systems Genitourinary Genitourinary: Reports system reviewed and no additional complaints, except as documented Patient History Medical History Anorexia Bacterial pneumonia Aspiration pneumonia GARCIA (dyspnea on exertion) Severe headache Cancer associated pain Weight loss, non-intentional Urinary tract infection symptoms Class 1 obesity (06/23/13) Gastrointestinal tube in situ Insomnia Epigastric pain Hx of esophageal spasm Upper extremity somatic dysfunction Chronic pain of right thumb Left ankle swelling Thoracic region somatic dysfunction Cervical somatic dysfunction Cranial somatic dysfunction Unilateral occipital headache Whiplash injury to neck PTSD (post-traumatic stress disorder) Limb swelling [place] use COPD (chronic obstructive pulmonary disease) Lumbar spine pain Right arm fracture Chronic back pain Vision abnormalities Hearing loss (08/10/94) History of alcohol abuse Substance abuse Bipolar disorder Anxiety Spinal stenosis Cervical spine disease Chronic cluster headache (06/23/13) Surgical History Anesthesia History of surgery on arm History of facial surgery History of testicular surgery History of spinal fusion History of spinal fusion History of tonsillectomy History of knee replacement (05/29/14) Family History Mother Suicide Asthma Bipolar disorder Depression Sister Age: 73 Healthy adult Father Emphysema of lung Sister Crohn's disease Substance abuse Social History household members: none other: Pt lives with a friend who is a disabled [facility] vet who needs as sistance, Smoking Status: Former smoker alcohol intake: never substance use type: marijuana Smoking Status: Former smoker tobacco type: cigarettes alcohol intake frequency: 0-2 drinks per day Substance Use Type: does not use Exam Other: External exam is unremarkable, Angeles catheter is in place Medical Decision Making MDM Narrative Medical decision making narrative: Patient was obviously having quite a bit of difficulty maintaining the Angeles catheter at home. He did have a discussion with him yesterday about potentially removing the catheter even before he left after the initial visit but he decided to keep the catheter in. Since he has returned multiple times for issues we will just remove the catheter today. Will discharge the patient home and still have him follow-up with urology and return to the emergency department if needed. Discharge Plan Departure Patient Disposition: Home Clinical Impression: Angeles catheter problem Activity Restrictions/Additional Instructions: I do recommend that you contact Urology tomorrow for follow-up this week like we discussed even though you have the Angeles catheter in place. Return to the emergency department for new symptoms. Prescriptions: No Action (DME) BD Luer-Laure Syringe 3 mL 25 x 5/8 syringe See Rx Instructions .Route Qty: 100 0RF Rx Instructions: USE TO DRAW AND INJECT SUMATRIPTAN SUBCUTANEOUSLY AT ONSET OF HEADACHE. NOT TO EXCEED 2 INJECTIONS IN 24 HOUR PERIOD. oxycodone 10 mg tablet 10 mg PO Q1-4H MDD 40mg PRN (Reason: esophageal cancer pain) Qty: 300 0RF Rx Instructions: EXEMPT CANCER PAIN (DME) Home Oxygen See Rx Instructions .Route .MEDSUPPLY Qty: 1 0RF Rx Instructions: Use oxygen at the start of a cluster headache via face mask at 15L for until headache is gone albuterol sulfate 90 mcg/actuation HFA aerosol inhaler 2 inh inhalation Q4-6H PRN (Reason: shortness of breath or wheezing) Qty: 6.7 6RF ondansetron 8 mg tablet,disintegrating 8 mg PO 3XD dronabinol [Marinol] 5 mg capsule 5 mg PO BID Qty: 60 5RF Rx Instructions: administer before lunch and evening meal/dinner (DME) Disabled Parking Permit See Rx Instructions .ROUTE .MEDSUPPLY Qty: 1 0RF Rx Instructions: I find this patient to be medically disabled and qualified for Disabled Parking as indicated on the accompanying Disabled Parking Application for Individuals. gabapentin 600 mg tablet 600 mg PO BEDTIME amitriptyline 100 mg tablet 300 mg PO BEDTIME quetiapine 50 mg tablet 150 mg PO BEDTIME lamotrigine 100 mg tablet 100 mg PO BEDTIME baclofen 10 mg tablet 30 mg PO BEDTIME duloxetine 30 mg capsule,delayed release(DR/EC) 60 mg PO BEDTIME oxycodone 15 mg tablet 15 mg PO Q8H PRN (Reason: pain) Qty: 14 0RF amoxicillin-pot clavulanate 875-125 mg tablet 1 tab PO BID Qty: 14 3RF Referrals: Ivan Larios MD [Physician] - Reji Chowdhury DO [Primary Care Provider] - Stand Alone Forms: Patient Portal/API
--- NOTE | 2024-05-16 04:16 | PC.NURSE ---
Pt continues to complain of urine dripping from around catheter. in room. ok to remove brice catheter. Catheter removed. [facility]icare done.
--- NOTE | 2024-05-16 06:19 | DI.RAD.S_ITS ---
PROCEDURE: XR ELBOW RT MIN 3V INDICATIONS: R elbow pain after fall TECHNIQUE: 3 views of the elbow were acquired. COMPARISON: [facility], , XR ELBOW RT MIN 3V, 07/08/2022, 16:00. FINDINGS: Bones: ORIF of the proximal ulna as well as fixation of the proximal radius. Hardware is intact without hardware fracture or periprosthetic lucency to suggest loosening. Alignment is stable. Soft tissues: No elbow joint effusion. No suspicious soft tissue calcifications. IMPRESSION: No visualized acute fracture or dislocation. However, if clinical concern and/or pain persist, short interval imaging followup in 7-10 days is recommended, as occult injury cannot be definitively excluded. The above findings are concordant with preliminary report. Dictated by: Rosi Ly M.D. on 05/16/2024 at 9:43 Approved by: Rosi Ly M.D. on 05/16/2024 at 9:44
--- NOTE | 2024-05-16 06:19 | DI.CT.S_ITS ---
PROCEDURE: CT HEAD/BRAIN WO CON INDICATIONS: fall with head injury TECHNIQUE: Noncontrast 4.5 mm thick angled axial sections acquired from the foramen magnum to the vertex, with coronal and sagittal reformats. For radiation dose reduction, the following was used: automated exposure control, adjustment of mA and/or kV according to patient size. COMPARISON: [facility], MR, MR BRAIN WITH/WITHOUT CONTRAST, 03/08/2024, 14:32. [facility], CT, CT HEAD/BRAIN WO CON, 05/13/2024, 4:18. FINDINGS: Image quality: Diagnostic. CSF spaces: Basal cisterns are patent. No extra-axial fluid collections. The ventricles are symmetric in size and shape. Brain: No intracranial bleeds or masses. There is cerebral volume loss for age, with resultant ventricular and sulcal prominence. There are periventricular and deep white matter chronic small vessel ischemic changes. There is intracranial internal carotid artery atherosclerosis. Skull and face: Right frontal scalp contusion/hematoma. Calvarium and visualized facial bones appear intact, without suspicious lesions. Sinuses: Visualized sinuses and mastoids are clear. IMPRESSION: No acute intracranial pathology. Right frontal scalp contusion/hematoma without underlying calvarial fracture. Age related senescent changes and sequela of chronic small vessel ischemic disease. No significant discrepancy with the tower erector helper radiology preliminary report. Dictated by: Dread Dominguez M.D. on 05/16/2024 at 7:06 Approved by: Dread Dominguez M.D. on 05/16/2024 at 7:10
--- NOTE | 2024-05-16 07:44 | PC.NURSE ---
0745: Ree thomas called for pickup. Voucher given. Pt wheeled to [facility] by ELEONORA.
--- NOTE | 2024-05-16 14:02 | CM.SWNOTE ---
ED CORRECTIONAL OFFICER Follow Up Call Note: CORRECTIONAL OFFICER was consulted due to patient's frequent visits to the ED (5x this previous weekend) and living alone. Patient presented to the ED this weekend due to issues with his catheter. Pt's Primary Care Provider is Dr. Reji Chowdhury and insurance is [facility] Medicare Advantage and Medicaid. Reviewed EMR for pt?s medical status. It is found that patient has services started with [facility] (started care on 04/19/24) and lives at [facility] ([facility] side). ED CORRECTIONAL OFFICER called patient, introduced self and role. Patient stated he is open to any care available at this point and states he has been in contact with his PCP this morning. Patient agreeable to Community Survey And Mapping Technician referral and stated he does not have home health services but could have misunderstood this CORRECTIONAL OFFICER during phone call. CORRECTIONAL OFFICER encouraged patient to follow up with PCP and educated on utilizing home health services if available. ED CORRECTIONAL OFFICER sent referral to Community Survey And Mapping Technician via [employer] form. ED CORRECTIONAL OFFICER notified Nurse Health Shipping Support Clerk at patient's PCP office of Community Survey And Mapping Technician referral and of patient's multiple presentations to the ED this weekend. Plan: Pt to follow up with PCP and [facility] for continued care. Community Survey And Mapping Technician to follow up for additional care coordination/safety assessment. DARCY Vaughn
== END 2024-05-16 07:44 | disposition home or self-care (01) ==
PROVIDERS: Emergency Provider Emergency Medicine; PCP Family Medicine
DX: T83.9XXA Unspecified complication of genitourinary prosthetic device, implant and graft, initial encounter (principal); S09.90XA Unspecified injury of head, initial encounter; W01.0XXA Fall on same level from slipping, tripping and stumbling without subsequent striking against object, initial encounter
CPT/HCPCS: 70450; 73080; 99281; 99284

== ENCOUNTER → 2024-06-03 12:09 | Outpatient (CLI) | payer OTHER, MEDICAID, SELFPAY ==
[2024-05-03 14:25] VITALS: BMI 19.0
--- NOTE | 2024-06-03 12:12 | DI.RAD.S_ITS ---
PROCEDURE: XR CHEST 2V INDICATIONS: Aspiration Pneumonia TECHNIQUE: 2 views of the chest were acquired. COMPARISON: [facility], CT, CT ANGIO CHEST PE PROTOCOL, 05/03/2024, 12:36. [facility], CR, XR CHEST 1V, 05/03/2024, 11:24. FINDINGS: Surgical changes and devices: Right chest Port-A-Cath, cervical fusion hardware Lungs and pleura: Severe biapical emphysematous change. Chronic bibasilar pulmonary interstitial fibrosis. No clearly defined acute pneumonia identified. Mediastinum: Mediastinal contours are normal. Heart size is normal. Bones and chest wall: No suspicious bony abnormalities. Soft tissues appear unremarkable. IMPRESSION: 1. Severe emphysematous change, bibasilar chronic interstitial pulmonary fibrosis. 2. No obvious superimposed acute infiltrates. Dictated by: Haris Scales M.D. on 06/03/2024 at 12:33 Approved by: Haris Scales M.D. on 06/03/2024 at 12:35
== END ==
PROVIDERS: PCP Family Medicine; Referring Provider Family Medicine; Visit Provider Family Medicine
DX: J69.0 Pneumonitis due to inhalation of food and vomit (principal); J84.10 Pulmonary fibrosis, unspecified; R09.02 Hypoxemia; R06.09 Other forms of dyspnea
CPT/HCPCS: 71046

== ENCOUNTER 2024-06-28 00:56 | Emergency (ER) | payer OTHER, MEDICAID, SELFPAY ==
[2024-05-03 14:25] VITALS: BMI 19.0
[2024-06-28] VITALS (30 sets, daily range): BP systolic 108–169; BP diastolic 66–89; PULSE 71–89; RESP 11–27; TEMP 36.5; O2SAT 92–100
--- NOTE | 2024-06-28 01:04 | ED_ITS ---
HPI - Fall <Shaye Pena, DO - Last Filed: 06/29/24 02:05> General Chief Complaint: Fall Stated Complaint: Fall Time Seen by Provider: 06/28/24 01:04 History of Present Illness HPI Narrative: 68-year-old male history of recurrent distal esophageal cancer aspiration pneumonia G-tube in place bipolar disorder seizure disorder presenting today with fall. He reports that he ran out of his quetiapine which she usually takes to him go to sleep so he took 2 amitriptyline. He has been on amitriptyline for number of years. He denies any suicidal ideations he was just trying to go to sleep. He sat up on the edge of his bed and fell off. He was too weak to get up from the floor and he called EMS. He does not think he lost consciousness no dizziness or lightheadedness. He has no injury or significant pain from his fall. He was seen evaluated here last month for something similar. He is followed by [facility] and gets chemo weekly. EMS reports he was mildly hypotensive when they 1st arrived with blood pressure in the 90s but that has now resolved Related Data Home Medications Medication Instructions Recorded Confirmed baclofen 10 mg tablet 30 mg PO BEDTIME 05/03/24 05/25/24 duloxetine 30 mg capsule,delayed 60 mg PO BEDTIME 05/03/24 05/25/24 release gabapentin 600 mg tablet 600 mg PO BEDTIME insomnia 05/03/24 05/25/24 lamotrigine 100 mg tablet 100 mg PO BEDTIME 05/03/24 05/25/24 quetiapine 50 mg tablet 150 mg PO BEDTIME 05/03/24 05/25/24 amitriptyline 100 mg tablet 200 mg PO BEDTIME 05/25/24 05/25/24 hyrocodone PO TID 06/14/24 Previous Rx's Medication Instructions Recorded Home Oxygen #1 ea 02/17/23 syringe with needle 3 mL 25 x 5/8 #100 ea 03/18/23 (BD Luer-Laure Syringe) albuterol sulfate 90 mcg/actuation 2 inh inhalation Q4-6H PRN 02/05/24 aerosol inhaler shortness of breath or wheezing #6.7 grams Disabled Parking Permit #1 ea 05/12/24 dronabinol 5 mg capsule (Marinol) 5 mg PO BID #60 caps 05/12/24 hydromorphone 8 mg tablet See Rx Instructions PO Q4H PRN 06/09/24 pain #135 tabs albuterol sulfate 0.63 mg/3 mL 0.63 mg (3 mL) inhalation Q4-6H 06/14/24 solution for nebulization PRN shortness of breath or wheezing #90 mL nebulizers (AeroEclipse II #1 ea 06/14/24 Nebulizer) Allergies Allergy/AdvReac Type Severity Reaction Status Date / Time mold Allergy Severe Cough Verified 06/28/24 01:05 Patient History <Shaye Pena DO - Last Filed: 06/29/24 02:05> Medical History (Updated 06/28/24 @ 11:10 by Anay Paige DO) History of substance abuse Moderate alcohol use disorder, in sustained remission (07/16/15) Hypoxia Jejunostomy tube leak Anorexia Bacterial pneumonia Aspiration pneumonia GARCIA (dyspnea on exertion) Severe headache Cancer associated pain Weight loss, non-intentional Urinary tract infection symptoms Class 1 obesity (06/23/13) Gastrointestinal tube in situ Insomnia Epigastric pain Hx of esophageal spasm Upper extremity somatic dysfunction Chronic pain of right thumb Left ankle swelling Thoracic region somatic dysfunction Cervical somatic dysfunction Cranial somatic dysfunction Unilateral occipital headache Whiplash injury to neck PTSD (post-traumatic stress disorder) Limb swelling [place] use COPD (chronic obstructive pulmonary disease) Lumbar spine pain Right arm fracture Chronic back pain Vision abnormalities Hearing loss (08/10/94) History of alcohol abuse Substance abuse Bipolar disorder Anxiety Spinal stenosis Cervical spine disease Chronic cluster headache (06/23/13) Surgical History Anesthesia History of surgery on arm History of facial surgery History of testicular surgery History of spinal fusion History of spinal fusion History of tonsillectomy History of knee replacement (05/29/14) Family History Mother Suicide Asthma Bipolar disorder Depression Sister Age: 73 Healthy adult Father Emphysema of lung Sister Crohn's disease Substance abuse Social History household members: none other: Pt lives with a friend who is a disabled [facility] vet who needs assistance, Smoking Status: Former smoker alcohol intake: never substance use type: marijuana Smoking Status: Former smoker tobacco type: cigarettes alcohol intake frequency: 0-2 drinks per day Substance Use Type: does not use Exam <DO Nilson Mora Last Filed: 06/29/24 02:05> Initial Vital Signs Initial Vital Signs: Vital Signs Blood Pressure 108/66 06/28/24 00:59 GENERAL: Chronically ill thin 68-year-old male HEENT: Head atraumatic,EOMI, pupils reactive, face symmetric, moist mucous membranes NECK: No vertebral tenderness no step-off full range of motion CARDIOVASCULAR: Regular rate and rhythm without murmurs, rubs or gallops. RESPIRATORY: Breath sounds equal bilaterally, no wheezes rales or rhonchi. ABDOMEN: Soft, nontender. Normoactive bowel sounds all 4 quadrants. No guarding or rebound. J-tube in place EXTREMITIES: Normal range of motion, no clubbing or edema. Neurovascularly intact NEUROLOGICAL: Alert and oriented x4.Normal gait and speech. SKIN: Warm, dry, no laceration, no petechiae, no rashes or lesions. <Anay Paige DO - Last Filed: 06/28/24 18:56> Initial Vital Signs Initial Vital Signs: Vital Signs Blood Pressure 108/66 06/28/24 00:59 Course <Shaye Pena DO - Last Filed: 06/29/24 02:05> Orders Ordered: Discontinued Medications Acetaminophen (Acetaminophen 325 Mg Tablet) 975 mg PO NOW ONE Stop: 06/28/24 07:54 Last Admin: 06/28/24 08:11 Dose: 975 mg Documented By: DYLON Heparin Sodium (Porcine) (Heparin 500 Unit/5 Ml Port Flush) 500 unit IV PRN PRN PRN Reason: Flush Last Admin: 06/28/24 11:41 Dose: 500 unit Documented By: GURMEET Lidocaine HCl (Lidocaine 2% (Glydo) 6 Ml Gel) 6 ml TOP NOW ONE Stop: 06/28/24 06:54 Last Admin: 06/28/24 06:58 Dose: 6 ml Documented By: DYLON(2) Oxycodone HCl (Oxycodone Ir 5 Mg Tablet) 10 mg PO NOW ONE Stop: 06/28/24 09:40 Last Admin: 06/28/24 09:50 Dose: 10 mg Documented By: DYLON Vital Signs Vital signs: Vital Signs - 8 hr 06/28/24 11:00 Pulse Rate 85 Pulse Oximetry 95 <Anay Paige DO - Last Filed: 06/28/24 18:56> Orders Ordered: Discontinued Medications Acetaminophen (Acetaminophen 325 Mg Tablet) 975 mg PO NOW ONE Stop: 06/28/24 07:54 Last Admin: 06/28/24 08:11 Dose: 975 mg Documented By: DYLON Heparin Sodium (Porcine) (Heparin 500 Unit/5 Ml Port Flush) 500 unit IV PRN PRN PRN Reason: Flush Last Admin: 06/28/24 11:41 Dose: 500 unit Documented By: GURMEET Lidocaine HCl (Lidocaine 2% (Glydo) 6 Ml Gel) 6 ml TOP NOW ONE Stop: 06/28/24 06:54 Last Admin: 06/28/24 06:58 Dose: 6 ml Documented By: DYLON(2) Oxycodone HCl (Oxycodone Ir 5 Mg Tablet) 10 mg PO NOW ONE Stop: 06/28/24 09:40 Last Admin: 06/28/24 09:50 Dose: 10 mg Documented By: DYLON Vital Signs Vital signs: Vital Signs - 8 hr 06/28/24 11:00 Pulse Rate 85 Pulse Oximetry 95 MDM - Fall <Shaye Pena DO - Last Filed: 06/29/24 02:05> Lab Data 06/28/24 01:16 06/28/24 01:16 Labs: Lab Results 06/28/24 06/28/24 06/28/24 Range/Units 01:16 06:25 06:25 WBC 7.8 (4.5-11.0) X10^3/uL RBC 4.31 L (4.5-5.9) X10^6/uL Hgb 11.0 L (13.5-17.5) g/dL Hct 34.2 L (41-53) % MCV 79.5 L (80-100) fL MCH 25.5 L (26-34) PG MCHC 32.1 (30-36) % RDW 17.9 H (11.6-14.8) % Plt Count 292 (150-400) X10^3/uL Neut % (Auto) 84.3 H (50-75) % Lymph % (Auto) 4.4 L (25-40) % Perkins % (Auto) 8.6 (3-14) % Eos % (Auto) 1.6 L (2-4) % Baso % (Auto) 1.1 (0-2) % Neut # (Auto) 6600 (1479-9214) /uL Lymph # (Auto) 300 L (4500-0897) /uL Perkins # (Auto) 700 (0-900) /uL Eos # (Auto) 100 (0-450) /uL Baso # (Auto) 100 (0-100) /uL Sodium 133 L (137-145) mmol/L Potassium 3.9 (3.4-5.1) mmol/L Chloride 100 (98-107) mmol/L Carbon Dioxide 28 (22-32) mmol/L BUN 10 (9-20) mg/dL Creatinine 0.73 (0.66-1.25) mg/dL Estimated GFR > 60 (>60) mL/min BUN/Creatinine Ratio 13.7 (6-22) Glucose 91 (80-110) mg/dL Calcium 9.0 (8.4-10.2) mg/dL Total Bilirubin 0.3 (0.2-1.3) mg/dL AST 24 (17-59) IU/L ALT 16 (<50) IU/L Alkaline Phosphatase 116 (38-126) U/L Total Protein 5.8 L (6.3-8.2) g/dL Albumin 3.1 L (3.5-5.0) g/dL Globulin 2.7 (1.7-4.1) g/dL Albumin/Globulin Ratio 1.1 (1.0-2.8) Urine Color Red Urine Appearance Turbid Urine pH 7.5 Normal (4.5-8.0) Ur Specific [place] 1.010 (1.000-1.035) Urine Protein 1+ H (Negative) Urine Glucose (UA) Negative (Negative) g/dL Urine Ketones Negative (NEGATIVE) Urine Occult Blood 2+ H (Negative) Urine Nitrate Negative (Negative) Urine Bilirubin Negative (NEGATIVE) Urine Urobilinogen 0.2 (0.2) E.U./dL Ur Leukocyte Esterase Negative (NEGATIVE) Urine RBC >100/hpf H (0-5/HPF) Urine WBC None seen (0-5/HPF) Ur Squamous Epith Cells None seen (0-5/HPF) Urine Bacteria None seen (None) Ur Culture Indicated? Cult not indicated Vol Urine Centrifuged 10ml (spun) U Opiates 300ng/mL cut Positive H (Negative) Ur Oxycodone Screen Positive H (Negative) Urine Methadone Screen Negative (Negative) Ur Barbiturates Screen Negative (Negative) U Tricyclic Antidepress Positive H (Negative) Ur Phencyclidine Scrn Negative (Negative) Ur Amphetamines Screen Negative (Negative) U Methamphetamines Scrn Negative (Negative) Ur MDMA Scrn (Ecstasy) Negative (Negative) U Benzodiazepines Scrn Negative (Negative) Urine Cocaine Screen Negative (Negative) U Marijuana (THC) Screen Positive H (Negative) Urine Specific [place] Normal (Normal) Ur Creatinine Normal (Normal) ECG Data Attestation: I personally reviewed and interpreted this ECG as follows: Interpretation: Normal sinus rhythm rate 73 NC interval [address] changes or T-wave inversions low voltage MDM Narrative Medical decision making narrative: YASMIN CC: Fall over weakness Complicating co-morbidities: On going bladder cancer Medical records reviewed: Oncology note from June 10 reports went he stands up his blood pressure decreases and this is monitored by home blood pressure cuff. He walks with a walker Differential considered: Infection dehydration CVA medications Exam documented above, pertinent findings include: Chronically ill male neurologically intact no evidence of trauma or injury Lab Test results independently reviewed as above. Pertinent findings: Leukocytosis or anemia in fact hemoglobin 11 hematocrit 34.2 improved from last in April of .10/07 Sodium 133 which is baseline potassium 3.9 chloride 100 carbon dioxide 28 BUN 10 creatinine 0.7 Independently reviewed EKG as above no ischemia low voltage similar to prior Imaging studies independently reviewed: Head CT no acute intracranial abnormality Treatments: 1 L of fluids Re-evaluations: Patient remains neurologically intact no complain Discussion: Patient is a chronically ill 68-year-old male currently undergoing chemotherapy presenting today after fall out of bed. Previous records do report that he does have some orthostatic hypotension least as seems to be leading to. Today he fell out of bed after taking 2 amitriptyline to help him go to sleep. EMS reports a blood pressure was low but quickly resolved. He is neurologically intact blood work overall reassuring. Head CT does not show any intracranial abnormality. At this time no need for further workup. Patient probably fell due to some orthostatic hypotension and taking 2 amitriptyline. 0615 patient slept most of the night attempted ambulation trial but upon sitting up he got extremely dizzy unable to stand very weak. He is confused. At this time patient is not a safe discharge home but does not quite meet admission criteria. Waiting for social work and physical therapy evaluation Patient signed out to Dr. Paige <Anay Paige, DO - Last Filed: 06/28/24 18:56> Lab Data Labs: Lab Results 06/28/24 06/28/24 06/28/24 Range/Units 01:16 06:25 06:25 WBC 7.8 (4.5-11.0) X10^3/uL RBC 4.31 L (4.5-5.9) X10^6/uL Hgb 11.0 L (13.5-17.5) g/dL Hct 34.2 L (41-53) % MCV 79.5 L (80-100) fL MCH 25.5 L (26-34) PG MCHC 32.1 (30-36) % RDW 17.9 H (11.6-14.8) % Plt Count 292 (150-400) X10^3/uL Neut % (Auto) 84.3 H (50-75) % Lymph % (Auto) 4.4 L (25-40) % [place] % (Auto) 8.6 (3-14) % Eos % (Auto) 1.6 L (2-4) % Baso % (Auto) 1.1 (0-2) % Neut # (Auto) 6600 (3124-3347) /uL Lymph # (Auto) 300 L (9969-0957) /uL [place] # (Auto) 700 (0-900) /uL Eos # (Auto) 100 (0-450) /uL Baso # (Auto) 100 (0-100) /uL Sodium 133 L (137-145) mmol/L Potassium 3.9 (3.4-5.1) mmol/L Chloride 100 (98-107) mmol/L Carbon Dioxide 28 (22-32) mmol/L BUN 10 (9-20) mg/dL Creatinine 0.73 (0.66-1.25) mg/dL Estimated GFR > 60 (>60) mL/min BUN/Creatinine Ratio 13.7 (6-22) Glucose 91 (80-110) mg/dL Calcium 9.0 (8.4-10.2) mg/dL Total Bilirubin 0.3 (0.2-1.3) mg/dL AST 24 (17-59) IU/L ALT 16 (<50) IU/L Alkaline Phosphatase 116 (38-126) U/L Total Protein 5.8 L (6.3-8.2) g/dL Albumin 3.1 L (3.5-5.0) g/dL Globulin 2.7 (1.7-4.1) g/dL Albumin/Globulin Ratio 1.1 (1.0-2.8) Urine Color Red Urine Appearance Turbid Urine pH 7.5 Normal (4.5-8.0) Ur Specific [place] 1.010 (1.000-1.035) Urine Protein 1+ H (Negative) Urine Glucose (UA) Negative (Negative) g/dL Urine Ketones Negative (NEGATIVE) Urine Occult Blood 2+ H (Negative) Urine Nitrate Negative (Negative) Urine Bilirubin Negative (NEGATIVE) Urine Urobilinogen 0.2 (0.2) E.U./dL Ur Leukocyte Esterase Negative (NEGATIVE) Urine RBC >100/hpf H (0-5/HPF) Urine WBC None seen (0-5/HPF) Ur Squamous Epith Cells None seen (0-5/HPF) Urine Bacteria None seen (None) Ur Culture Indicated? Cult not indicated Vol Urine Centrifuged 10ml (spun) U Opiates 300ng/mL cut Positive H (Negative) Ur Oxycodone Screen Positive H (Negative) Urine Methadone Screen Negative (Negative) Ur Barbiturates Screen Negative (Negative) U Tricyclic Antidepress Positive H (Negative) Ur Phencyclidine Scrn Negative (Negative) Ur Amphetamines Screen Negative (Negative) U Methamphetamines Scrn Negative (Negative) Ur MDMA Scrn (Ecstasy) Negative (Negative) U Benzodiazepines Scrn Negative (Negative) Urine Cocaine Screen Negative (Negative) U Marijuana (THC) Screen Positive H (Negative) Urine Specific [place] Normal (Normal) Ur Creatinine Normal (Normal) MDM Narrative Medical decision making narrative: MDM CC: Fall over weakness Complicating co-morbidities: On going bladder cancer Medical records reviewed: Oncology note from June 10 reports went he stands up his blood pressure decreases and this is monitored by home blood pressure cuff. He walks with a walker Differential considered: Infection dehydration CVA medications Exam documented above, pertinent findings include: Chronically ill male neurologically intact no evidence of trauma or injury Lab Test results independently reviewed as above. Pertinent findings: Leukocytosis or anemia in fact hemoglobin 11 hematocrit 34.2 improved from last in April of .10/07 Sodium 133 which is baseline potassium 3.9 chloride 100 carbon dioxide 28 BUN 10 creatinine 0.7 Independently reviewed EKG as above no ischemia low voltage similar to prior Imaging studies independently reviewed: Head CT no acute intracranial abnormality Treatments: 1 L of fluids Re-evaluations: Patient remains neurologically intact no complain Discussion: Patient is a chronically ill 68-year-old male currently undergoing chemotherapy presenting today after fall out of bed. Previous records do report that he does have some orthostatic hypotension least as seems to be leading to. Today he fell out of bed after taking 2 amitriptyline to help him go to sleep. EMS reports a blood pressure was low but quickly resolved. He is neurologically intact blood work overall reassuring. Head CT does not show any intracranial abnormality. At this time no need for further workup. Patient probably fell due to some orthostatic hypotension and taking 2 amitriptyline. 0615 patient slept most of the night attempted ambulation trial but upon sitting up he got extremely dizzy unable to stand very weak. He is confused. At this time patient is not a safe discharge home but does not quite meet admission criteria. Waiting for social work and physical therapy evaluation Patient signed out to Dr. Paige 06/28/2024 Dr. Paige: Patient signed out to myself. Patient seen and evaluated by myself. Patient is A&O times thought it was July instead of June but knows he is at [facility] knows year he was able to give pretty appropriate history. He is slightly disheveled notes that he did take an extra amitriptyline last night rather than his quetiapine because he could not find the bottle of his quetiapine. He states he does not normally do this he does not think that he took anymore amitriptyline other than an extra dose. He states his vision is slightly blurred he feels weak and unstable. He notes he usually uses a walker to get around. He also notes that he had urinary retention this evening which he has had in the past and has required catheters in the past but not regularly. On exam he is globally weak but has full range of motion of his extremities with no drift on exam. DTRs normal. Patient is nontender to palpation with no obvious injuries. He does note that he did hit his head when he fell denies loss consciousness. Labs, imaging and EKG were reviewed EKG shows sinus rhythm rate of 73 NC 210 QRS of [address] shows no acute change Labs were reviewed Chest x-ray no definite acute trauma, severe bilateral emphysema, bilateral interstitial prominence consistent with superimposed interstitial lung disease suspected small right and trace left pleural effusions versus pleural thickening. Urine shows hematuria but no signs of infection. UDS positive for opiates, oxycodone and tricyclics as well as marijuana. Discussed with patient he states he does need to flush his G-tube. Patient met with physical therapy and was able to participate. Was able to ambulate here in the department they do recommend 24 hour assistance with home health care. Met with the CREDIT FRONT OFFICE DEVELOPER was working to set this in place. He does also have an appointment upcoming on the with his primary care physician. Patient does not wish to stay he feels much better and would like to return home. We also discussed keeping his catheter in place but he states he has has a removed before and done well we discussed he is high-risk for urinary retention but we will remove at patient's polite insistence. Patient also had formal road test here in the department was able to ambulate without issue with walker which is his baseline. Discussed return precautions all questions answered. Discharge Plan Departure Patient Disposition: Home Clinical Impression: Fall, Accidental amitriptyline overdose Activity Restrictions/Additional Instructions: I suspect your may has been related to your extra amitriptyline, please do not take any extra at home. Our social services manager met with you they are working to set up home health care with you. Please follow up at your upcoming appointment with your primary care physician. You did have urinary retention this can be related to your medication but can also be somewhat baseline for you as you requested your catheter was removed but I think you may develop retention and may have to return to have it replaced. What to do: At this time your blood pressure little bit low make sure that your drinking plenty of the electrolyte fluids trying to keep your blood pressure up. Be sure that your walking with a walker. Follow up with Oncology as scheduled this week Return to ER if you should have recurrent falls, increasing weakness, any new confusion or memory issues, vomiting, any difficulty with urination or inability to urinate, new abdominal back or flank pain, or other new or concerning changes. Prescriptions: No Action (DME) BD Luer-Laure Syringe 3 mL 25 x 5/8 syringe See Rx Instructions .Route Qty: 100 0RF Rx Instructions: USE TO DRAW AND INJECT SUMATRIPTAN SUBCUTANEOUSLY AT ONSET OF HEADACHE. NOT TO EXCEED 2 INJECTIONS IN 24 HOUR PERIOD. hydromorphone 8 mg tablet See Rx Instructions PO Q4H PRN (Reason: pain) Qty: 135 0RF Rx Instructions: Take 1/2-1 tablet every 4 hours as needed for pain (DME) Home Oxygen See Rx Instructions .Route .MEDSUPPLY Qty: 1 0RF Rx Instructions: Use oxygen at the start of a cluster headache via face mask at 15L for until headache is gone albuterol sulfate 90 mcg/actuation HFA aerosol inhaler 2 inh inhalation Q4-6H PRN (Reason: shortness of breath or wheezing) Qty: 6.7 6RF Hold Instructions: starting nebulizer hyrocodone PO TID albuterol sulfate 0.63 mg/3 mL solution for nebulization 0.63 mg inhalation Q4-6H PRN (Reason: shortness of breath or wheezing) Qty: 90 0RF (DME) nebulizers [AeroEclipse II Nebulizer] Misc See Rx Instructions .Route Qty: 1 0RF Rx Instructions: As directed dronabinol [Marinol] 5 mg capsule 5 mg PO BID Qty: 60 5RF Rx Instructions: administer before lunch and evening meal/dinner (DME) Disabled Parking Permit See Rx Instructions .ROUTE .MEDSUPPLY Qty: 1 0RF Rx Instructions: I find this patient to be medically disabled and qualified for Disabled Parking as indicated on the accompanying Disabled Parking Application for Individuals. amitriptyline 100 mg tablet 200 mg PO BEDTIME gabapentin 600 mg tablet 600 mg PO BEDTIME quetiapine 50 mg tablet 150 mg PO BEDTIME lamotrigine 100 mg tablet 100 mg PO BEDTIME baclofen 10 mg tablet 30 mg PO BEDTIME duloxetine 30 mg capsule,delayed release(DR/EC) 60 mg PO BEDTIME Referrals: Reji Chowdhury DO [Primary Care Provider] - Stand Alone Forms: Patient Portal/API/Survey
--- NOTE | 2024-06-28 01:12 | DI.CT.S_ITS ---
PROCEDURE: CT HEAD/BRAIN WO CON INDICATIONS: fall TECHNIQUE: Noncontrast 4.5 mm thick angled axial sections acquired from the foramen magnum to the vertex, with coronal and sagittal reformats. For radiation dose reduction, the following was used: automated exposure control, adjustment of mA and/or kV according to patient size. COMPARISON: [facility], CT, CT HEAD/BRAIN WO CON, 05/16/2024, 6:29. FINDINGS: Image quality: Diagnostic. CSF spaces: Basal cisterns are patent. No extra-axial fluid collections. Ventricles are normal in size and shape. Brain: No midline shift. No intracranial masses or hemorrhage. Rockwell-white matter interface is normal. Skull and face: Calvarium and visualized facial bones are intact, without suspicious lesions. Sinuses: Visualized sinuses and mastoids are clear. IMPRESSION: 1. No CT evidence of acute intracranial trauma. 2. No significant soft tissue injury or underlying fracture. Dictated by: Dalia Thomas M.D. on 06/28/2024 at 1:49 Approved by: Dalia Thomas M.D. on 06/28/2024 at 1:54
[2024-06-28 01:31] LABS: Add Manual Diff / Slide Review NO; Basophils Absolute Auto 100 /uL (0-100); Basophils Percent Auto 1.1 % (0-2); Eosinophils Absolute Auto 100 /uL (0-450); Eosinophils Percent Auto 1.6 % (2-4); Hematocrit 34.2 % (41-53); Lymphocytes Absolute Auto 300 /uL (1100-4500); Lymphocytes Percent Auto 4.4 % (25-40); Mean Corpuscular HGB Conc 32.1 % (30-36); Mean Corpuscular Hemoglobin 25.5 PG (26-34); Mean Corpuscular Volume 79.5 fL (80-100); Monocytes Absolute Auto 700 /uL (0-900); Monocytes Percent Auto 8.6 % (3-14); Neutrophils Absolute Auto 6600 /uL (1500-7000); Neutrophils Percent Auto 84.3 % (50-75); Platelet Count 292 X10^3/uL (150-400); Red Blood Cell Count 4.31 X10^6/uL (4.5-5.9); Red Cell Distribution Width 17.9 % (11.6-14.8); White Blood Cell Count 7.8 X10^3/uL (4.5-11.0)
[2024-06-28 01:34] LABS: Alanine Aminotransferase 16 IU/L (<50); Albumin 3.1 g/dL (3.5-5.0); Albumin Globulin Ratio 1.1 (1.0-2.8); Alkaline Phosphatase 116 U/L (38-126); Aspartate Aminotransferase 24 IU/L (17-59); BUN Creatinine Ratio 13.7 (6-22); Bilirubin Total 0.3 mg/dL (0.2-1.3); Blood Urea Nitrogen 10 mg/dL (9-20); Carbon Dioxide 28 mmol/L (22-32); Chloride 100 mmol/L (98-107); Estimated Glomerular Filt Rate > 60 mL/min (>60); Globulin 2.7 g/dL (1.7-4.1); Glucose 91 mg/dL (80-110); HEMOLYSIS < 15 (0-50); Potassium 3.9 mmol/L (3.4-5.1); Sodium 133 mmol/L (137-145); Total Protein 5.8 g/dL (6.3-8.2)
--- NOTE | 2024-06-28 01:40 | EKG_ITS ---
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
--- NOTE | 2024-06-28 01:42 | EKG_ITS ---
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
--- NOTE | 2024-06-28 05:50 | PC.NURSE ---
This nurse and Rn Connie Lee went to stand pt up for discharge. Patient states my vision is all weird, I can't stand up. Patient attempted to take one step and fell back in the gurney. Dr. Pena now at bedside. New orders placed. Patient does not know how old he is or what is going on. New change in mentation than when he first arrived.
[2024-06-28 06:40] LABS: Appearance Urine UA TURBID; Bilirubin Urine UA NEGATIVE (NEGATIVE); Color Urine UA RED; Glucose Urine UA NEGATIVE (Negative); Ketones Urine UA NEGATIVE (NEGATIVE); Leukocyte Esterase Urine UA NEGATIVE (NEGATIVE); Nitrite Urine UA NEGATIVE (Negative); Occult Blood Urine UA 2+ (Negative); Protein Urine UA 1+ (Negative); Urobilinogen Urine UA 0.2 E.U./dL (0.2); pH Urine UA 7.5 (4.5-8.0)
[2024-06-28 06:43] LABS: Bacteria Urine None Seen; Culture Indicated Urine Cult Not Indicated; RBC Urine >100/HPF (0-5/HPF); Squamous Epithelial Cell Urine None Seen (0-5/HPF); Urine Volume 10mL (spun); WBC Urine None Seen (0-5/HPF)
--- NOTE | 2024-06-28 06:45 | PC.NURSE ---
Back charting: Patient attempted to urinate in commode. Needed two person assist. Patient urinated about 40ml of dark red urine with blood. Sent to lab. Patient states he cannot empty bladder. Dr. Pena aware. Awaiting orders.
[2024-06-28] MEDS: LIDOCAINE 2% (GLYDO) 6 ML GEL TOP (06:58)
--- NOTE | 2024-06-28 07:32 | DI.RAD.S_ITS ---
PROCEDURE: XR CHEST 1V INDICATIONS: fall TECHNIQUE: One view of the chest was acquired. COMPARISON: [facility], CT, CT ANGIO CHEST PE PROTOCOL, 05/03/2024, 12:36. [facility], CR, XR CHEST 2 VIEWS, 05/16/2024, 14:24. [facility], CR, XR CHEST 2V, 06/03/2024, 12:13. [facility], CR, XR CHEST 1V, 05/03/2024, 11:24. [facility], CR, XR CHEST 1V, 08/13/2022, 18:33. FINDINGS: Surgical changes and devices: Cervical spinal fusion hardware is partially imaged. Stable right chest Port-A-Cath. Lungs and pleura: Bilateral emphysematous changes with decreased lung markings in the lung apices. Previously seen bibasilar interstitial opacities have mildly decreased. Suspected small right and trace left pleural effusions versus pleural thickening. No definite pneumothorax given emphysematous changes. Mediastinum: Mediastinal contours appear normal. Heart size is normal. Bones and chest wall: No obvious displaced rib fracture. No suspicious bony lesions. Overlying soft tissues appear unremarkable. IMPRESSION: 1. No definite acute traumatic findings radiographically. 2. Severe bilateral emphysema. Bilateral interstitial prominence consistent with superimposed interstitial lung disease. 3. Suspected small right and trace left pleural effusions versus pleural thickening. Approved by: Julio C Daniels M.D. on 06/28/2024 at 8:24
[2024-06-28 07:41] LABS: Ur Creatinine Normal (Normal); Ur Specific Gravity Normal (Normal); Urine pH Normal (Normal)
[2024-06-28 07:43] LABS: UR Morphine/Opiate cutoff 300 Positive (Negative); Urine Cocaine Negative (Negative); Urine Tetrahydrocannabinol Positive (Negative)
[2024-06-28 07:44] LABS: Urine Amphetamines Negative (Negative); Urine Barbiturates Negative (Negative); Urine Benzodiazepines Negative (Negative); Urine MDMA Negative (Negative); Urine Methadone Negative (Negative); Urine Methamphetamines Negative (Negative); Urine Oxycodone Positive (Negative); Urine Phencyclidine Negative (Negative); Urine Tricyclic Antidepressant Positive (Negative)
[2024-06-28] MEDS: ACETAMINOPHEN 325 MG TABLET 975 MG PO (08:11)
--- NOTE | 2024-06-28 09:25 | PT.IIE ---
Surgical History (Last Reviewed 05/15/24 @ 18:43 by Irwin Farah PA-C) Anesthesia History of facial surgery History of knee replacement (05/29/14) History of spinal fusion History of spinal fusion History of surgery on arm History of testicular surgery History of tonsillectomy Medical History (Last Updated 06/14/24 @ 10:06 by Reji Chowdhury, DO) Anorexia Anxiety Aspiration pneumonia Bacterial pneumonia Bipolar disorder Cancer associated pain Cervical somatic dysfunction Cervical spine disease Chronic back pain Chronic cluster headache (06/23/13) Chronic pain of right thumb Class 1 obesity (06/23/13) COPD (chronic obstructive pulmonary disease) Cranial somatic dysfunction GARCIA (dyspnea on exertion) Epigastric pain Gastrointestinal tube in situ Hearing loss (08/10/94) History of alcohol abuse History of substance abuse Hx of esophageal spasm Hypoxia Insomnia Jejunostomy tube leak Left ankle swelling Limb swelling [place] use Lumbar spine pain Moderate alcohol use disorder, in sustained remission (07/16/15) PTSD (post-traumatic stress disorder) Right arm fracture Severe headache Spinal stenosis Substance abuse Thoracic region somatic dysfunction Unilateral occipital headache Upper extremity somatic dysfunction Urinary tract infection symptoms Vision abnormalities Weight loss, non-intentional Whiplash injury to neck Physical Therapy Inpatient Evaluation/Re-Eval M1 PT/OT-IP Prior Functional Status Start: 06/28/24 12:01 Freq: Status: Active Protocol: Document 06/28/24 09:25 AB (Rec: 06/28/24 12:17 AB [id number]) Medical Review Prior Functional Status Medical History Reviewed Yes Communication able to make needs known Mobility and Gait pt stated that he was modified independent with all mobilities and ambulation using a 4WW or a SPC depending on how he feels; has h/o falls Social History Household Members none Living Arrangements [facility] Facility Number of Floors (Floors) One Floor Number of Stairs To Enter/Railing? pt lives at [facility] Home Environment Standard Height Toilet,Walk in Shower Home Equipment Four Wheel Walker,Shower Seat with Backrest,Hand Held Shower ,Grab Bars Near Toilet,Grab Bars In Shower Additional Social History Comment pt has an adjustable bed stated that there is a person that comes in once a week to assist him with laundry/house chores M2 PT-IP Current Condition Start: 06/28/24 12:01 Freq: Status: Active Protocol: Document 06/28/24 09:25 AB (Rec: 06/28/24 12:17 AB [id number]) Physical Therapy Current Condition Current Condition Evaluation Date 06/28/24 Treatment Diagnosis s/p fall; difficulty in walking Onset Date 06/28/24 M3 PT-IP Subjective Start: 06/28/24 12:01 Freq: Status: Active Protocol: Document 06/28/24 09:25 AB (Rec: 06/28/24 12:17 AB [id number]) Subjective Physical Therapy Visit Type Type Initial Evaluation Visit Start Time 09:25 Visit Stop Time 09:55 Number of BRAKE LINER Visits 0 Physical Therapy Visit Comments Patient Comments agreeable to do PT Therapy Pain Assessment Pain When Pain Assessed At Rest Pain Present Pain Present Pain Reported Location Generalized Intensity 10 Scale Used Numeric (0 - 10) Pain Management Techniques Distraction,Modification of Treatment,Re-positioning M4 PT-IP Mobility and Gait Start: 06/28/24 12:01 Freq: Status: Active Protocol: Document 06/28/24 09:25 AB (Rec: 06/28/24 12:17 AB [id number]) PT-Bed Mobility Assessment Supine to Sit Supine to Sit Maximum Assistance Sit to Supine Sit to Supine Standby Assistance PT-Transfer Assessment Sit to and From Stand Sit to and from Stand Minimal Assistance,1 Person Assistance,Use of Upper Extremities Equipment Transfer Assistive Device Gait Belt,Front Wheeled Walker Orthotic/Prosthetic Devices or Brace: No Comments Mobility Comments pt in bed and agreed to do PT. obtained PLOF and home set up . BP: 118/72. c/o 10/10 pain all over per pt. informed nurse. pt completed supine to sit max A and max cues. able to sit on EOB SBA. c/o dizziness. BP checked: 113/70. completed sit to stand min A and cues. unable to walk due to c/o dizziness but was able to march in placed x 3 min A and needed to sit back down. requested to go back in bed. sit to supine SBA. positioned pt in bed. call light and table placed within reach. informed case picker regarding pt's mobility. PT-Balance Assessment Sitting Balance and Reactions Static Sitting Balance Ability Good Dynamic Sitting Balance Ability Good Standing Balance and Reactions Static Standing Balance Ability Fair Dynamic Standing Balance Ability Poor Device Used FWW M5 PT-IP Objective Assessments Start: 06/28/24 12:01 Freq: Status: Active Protocol: Document 06/28/24 09:25 AB (Rec: 06/28/24 12:17 AB [id number]) Orientation Orientation/Cognition Level of Alertness Alert Orientation Name,Place,Situation Language Function Ability Hard of Hearing Safety Awareness Decreased Safety Awareness Memory Description No Deficits Noted Gross Range of Motion Lower Extremity ROM Assessment Within Functional Limits Strength Lower Extremity Strength Assessment Bilaterally Impaired Hip 4-/5 Knee 4-/5 Muscle Tone Muscle Tone WNL Yes M6 PT-IP Treatment Start: 06/28/24 12:01 Freq: Status: Active Protocol: Document 06/28/24 09:25 AB (Rec: 06/28/24 12:17 AB [id number]) Physical Therapy Treatment Education Education Provided Safety M7 PT-IP Assessment and Plan Start: 06/28/24 12:01 Freq: Status: Active Protocol: Document 06/28/24 09:25 AB (Rec: 06/28/24 12:17 AB [id number]) PT Summary Assessment and Plan Potential Rehabilitation Potential Fair Status of Condition at Evaluation Evolving Summary Impairments Pain,Strength,Balance, Coordination,Sensation, Cognition,Bed Mobility, Transfers,Gait,Activity Tolerance Assessment Summary pt is a 68 y/o M who presented to the ED s/p fall. pt with dx of esophageal CA and is undergoing chemotherapy. pt with G-tube and R sided chest port. pt requiring max A for supine to sit and SBA for sit to supine. pt able to stand min A. pt with c/o dizziness and was not able to ambulate but was able to march in place using FWW for support min A. Pt lives at [facility] and will need asssistance to be able to go home. d/c planA: SNF vs home 02/03 and HHPT. Goals Bed Mobility Goal Standby Assistance Transfer Goal Standby Assistance,Front Wheeled Walker Gait Goal Standby Assistance,Front Wheel Walker Gait Distance 50 Other Goals improve transfers and ambulation usign 4WW ~ 150 ft mod I Days to Meet Goals 10 Frequency of Treatment Frequency Of Treatment Once a Day Treatment Plan Physical Therapy Treatment Plan Bed Mobility Training,Transfer Training,Gait Training, Therapeutic Exercise,Balance Retraining,Discharge Planning, Neuromuscular Re-ed, Coordination Retraining Precautions Other Precautions falls; G-tube Recommendations To Nursing Amount of Assist Needed 1 Person Assist Discharge Recommendations PT Discharge Recommendations Home with 02/03 Assist Available,Home Health,SNF Rehab,Home vs SNF Transportation Needs at Discharge Private Vehicle,Wheelchair/ Cabulance
[2024-06-28] MEDS: OXYCODONE IR 5 MG TABLET 10 MG PO (09:50)
--- NOTE | 2024-06-28 10:35 | DIET.CONS ---
Dietary Consultation Note Admission Date: Assessment: Screened d/t RN reporting orders needed for TF diet. Called [facility] to confirm pt is still on similar regimen as previous visit. Pt is on same regimen. RD suspects pt is doing less formula than [facility] d/t delivery dates of formula. Weight remains 64-66 kg since Apr per EMR. Spoke to ED RN who stated they will confirm whether or not pt has been doing his TF regimen at home recently and give this RD a call back. Will adjust TF order as needed based on this information. Ht: Wt: 65.317 kg BMI: 19.0 UBW: 75.466 kg on 02/05/24 Last BM: () MNA: Vish Score: Diet: 06/28/24 Breakfast General (Regular) Diet Diet Modifications: Food Texture: Level 7 - Regular Liquid Consistency: Level 0 - Thin Labs: RBC 4.31 X10^6/uL (4.5-5.9) L 06/28/24 01:16 Hgb 11.0 g/dL (13.5-17.5) L 06/28/24 01:16 Hct 34.2 % (41-53) L 06/28/24 01:16 Creatinine 0.73 mg/dL (0.66-1.25) 06/28/24 01:16 Nutrition Diagnosis: Inadequate oral intake r/t swallowing difficulty aeb pt on TF for energy and protein intake Interventions: 1. Matching kcals and protein needs he receives at home with available formulary. Ordered continuous intermittent enteral nutrition over 12 hours of Pivot 1.5 at 105 mL/hr to provide 1890 kcals (75% of EER) and 118 g protein (113% protein needs), 206 g CHO, and 900 mL free water. Flush 60 mL Q6H. Feed plus flush provides 1140 mL fluids. Fluids needs are 1935 (30 mL/kg). Pt drinking fluids orally to meet needs. 2. Soft foods orally per pt's tolerance EER: 2500 kcals, 104 g protein, 1,000 mL fluids (per RD [facility]) Monitoring/Evaluations: TF rate, tolerance, labs, oral po intakes and fluid intakes Electronically Signed by: Tigist Clayton 06/28/24 10:35 Clinical Dietitian [address] [address]
--- NOTE | 2024-06-28 11:33 | CM.SWNOTE ---
ED BIOMEDICAL ENGINEERING SUPERVISOR Note Patient is 68 y/o male who presents to ED via EMS due to concern for GLF and accidentally took an extra amitriptyline rx last night. Patient presented with blurry vision, weakness and instability. Patient's PCP is Dr. Chowdhury, Patient has [employer] Medicare Advantage and [employer] Medicaid (Not straight Medicaid or full Medicaid coverage). Patient has hx of recurrent distal esophageal cancer, aspiration pneumonia, G tube in place, Bipolar disorder and seizure disorder. PT evaluates patient and recommends 24/7 care and Home Health. Per EMR, patient has recent HH referral with [facility]. BIOMEDICAL ENGINEERING SUPERVISOR confirms with [facility] that he is still in service with them. BIOMEDICAL ENGINEERING SUPERVISOR calls [facility] bench press operator and leaves regarding patient as there is current referral listed with this service as well. BIOMEDICAL ENGINEERING SUPERVISOR reviews [facility] records and patient had recent admission at [facility] due to concern for pneumonia and it is reported that they applied for [facility] for patient. BIOMEDICAL ENGINEERING SUPERVISOR calls [facility] and confirms that patient has [place] and does not have full Medicaid, it is reported that patient was explained this and he requested a mailed in application or online option. When asked about this patient does not recall. BIOMEDICAL ENGINEERING SUPERVISOR enters room to meet with patient, patient presents as A/Ox4, patient states he is feeling much better, seeing clearly and less dizzy. Patient endorses preference to d/c to home. BIOMEDICAL ENGINEERING SUPERVISOR discusses that patient will need to do another ambulation trial as patient was not ambulating with PT. Patient endorses he resides at [facility] and he is independent with ADLs, patient states he uses FWW at baseline,patient states he receives rides from friends. Patient states that he has not been falling lately and has been managing needs well. Patient states he accidentally took the wrong medication last night. Patient states that he has weekly oncology appts with [facility]. Patient endorses he has regular visits with PCP but does not recall missing any recent appts. Per EMR patient missed appt on 06/24/24 but patient has upcoming PCP appt on 07/06/24. Patient endorses that his friends check on him daily, patient endorses his sister Shellie in [place] is DPOA and he does not want her to be contacted and does not want to worry her. Patient endorses that [facility] staff are very helpful if he needs anything. BIOMEDICAL ENGINEERING SUPERVISOR discusses [facility] and discusses that he will need to complete a Medicaid Senior Living care application, BIOMEDICAL ENGINEERING SUPERVISOR attempts to do this with patient but he discharges before BIOMEDICAL ENGINEERING SUPERVISOR is able to do so. Patient gives consent for [facility] to call patient via phone for phone intake, BIOMEDICAL ENGINEERING SUPERVISOR informs [facility] of this. Patient endorses he can take a taxi home upon d/c. Patient ambulates with [employer] and passess ambulation trial with FWW. Plan: patient to d/c to [facility] upon medical clearance, [facility] to f/u with patient, Community Section Maintainer and [facility] to f/u with patient regarding LORENZA and caregiver needs. Friends to check in on patient. Donya Grover, CASKET ASSEMBLER
== END 2024-06-28 11:43 | disposition home or self-care (01) ==
PROVIDERS: Emergency Medicine; Emergency Provider Emergency Medicine; PCP Family Medicine
DX: T43.011A Poisoning by tricyclic antidepressants, accidental (unintentional), initial encounter (principal); R42 Dizziness and giddiness; R41.0 Disorientation, unspecified; I95.9 Hypotension, unspecified; W06.XXXA Fall from bed, initial encounter; C67.9 Malignant neoplasm of bladder, unspecified; I44.0 Atrioventricular block, first degree
CPT/HCPCS: 36415; 70450; 71045; 80053; 80305; 81001; 85025; 93005; 97163; 97530; 99284; J1642